=== PATIENT | male | born 1965 | race Two or more races ===

== ENCOUNTER 2020-03-26 06:11 | Outpatient (REF) | payer OTHER, SELFPAY ==
[2020-03-26 07:02] LABS: MANUAL DIFF FLAG NO
[2020-03-26 07:07] LABS: Basophils Absolute Auto 0.1 X10*3/uL (0.0-0.2); Basophils Percent Auto 0.8 % (0-2); Eosinophils Absolute Auto 0.3 X10*3/uL (0.0-0.4); Eosinophils Percent Auto 4.7 % (0-4); Hematocrit 45.9 % (42-52); Hemoglobin 15.9 g/dl (14.0-18.0); Imm Gran Abs Auto 0.02 X10*3/uL (0.00-0.03); Imm Gran Pct Auto 0.3 % (0.0-0.4); Lymphocytes Percent Auto 28.4 % (20-40); Mean Corpuscular HGB Conc 34.6 g/dl (31.0-36.0); Mean Corpuscular Hemoglobin 29.7 pg (27.0-33.0); Mean Corpuscular Volume 85.6 fL (80-98); Mean Platelet Volume 12.5 fL (9.4-12.4); Monocytes Absolute Auto 0.6 X10*3/uL (0.1-1.2); Monocytes Percent Auto 8.4 % (2-11); Neutrophils Absolute Auto 4.1 X10*3/uL (2.0-8.3); Neutrophils Percent Auto 57.4 % (45-73); Platelet Count 168 X10*3/uL (160-400); Red Blood Count 5.36 X10*6/uL (4.60-5.80); White Blood Count 7.2 X10*3/uL (4.8-10.8)
[2020-03-26 07:35] LABS: Creatinine Urine 57.12 mg/dL; Microalbumin Urine < 5.0 mg/L
[2020-03-26 07:51] LABS: Alanine Aminotransferase 51 U/L (0-40); Alkaline Phosphatase 115 U/L (39-117); Anion Gap 10 (12-20); Aspartate Amino Transferase 32 U/L (5-37); Bilirubin Total 0.5 mg/dL (0.0-1.0); Blood Urea Nitrogen 16 mg/dL (9-16); Calcium 9.2 mg/dL (8.4-10.2); Carbon Dioxide 31 mmol/L (22-29); Chloride 95 mmol/L (96-108); Estimated Glomerular Filt Rate 59; Potassium 4.4 mmol/l (3.3-5.1); Sodium 132 mmol/L (135-145); Total Protein 7.1 g/dL (6.5-8.0)
[2020-03-26 09:23] LABS: Glucose Fasting 466 mg/dL (60-99)
[2020-03-26 15:34] LABS: Cholesterol 181 mg/dL; HDL Cholesterol 39 mg/dL; LDL Cholesterol Calculated 77 mg/dl; Triglycerides 329 mg/dL
== END 2020-03-26 06:12 | disposition home or self-care (01) ==
LOC: HO.LAB 06:11
PROVIDERS: PCP Physician Assistant; Visit Provider Physician Assistant
DX: E11.65 Type 2 diabetes mellitus with hyperglycemia (principal); Z79.4 Long term (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
CPT/HCPCS: 36415; 80053; 80061; 82043; 85025

== ENCOUNTER 2021-09-08 08:53 | Outpatient (REF) | payer OTHER, SELFPAY ==
[2021-09-08 10:10] LABS: Estimated Average Glucose 315 mg/dL; Hemoglobin A1c % 12.6 %
[2021-09-08 10:40] LABS: Alanine Aminotransferase 28 U/L (0-40); Albumin Level 3.6 g/dL (3.5-5.0); Alkaline Phosphatase 89 U/L (39-117); Anion Gap 10 (12-20); Aspartate Amino Transferase 26 U/L (5-37); Bilirubin Total 0.6 mg/dL (0.0-1.0); Blood Urea Nitrogen 9 mg/dL (9-16); Calcium 9.4 mg/dL (8.4-10.2); Carbon Dioxide 31 mmol/L (22-29); Chloride 98 mmol/L (96-108); Cholesterol 168 mg/dL; Estimated Glomerular Filt Rate > 60; Glucose Fasting 234 mg/dL (60-99); HDL Cholesterol 54 mg/dL; LDL Cholesterol Calculated 90 mg/dl; Potassium 4.7 mmol/L (3.3-5.1); Rheumatoid Factor < 15.0 IU/mL (<15.0); Sodium 134 mmol/L (135-145); Total Protein 6.7 g/dL (6.5-8.0); Triglycerides 120 mg/dL
[2021-09-08 10:42] LABS: HBsAGNum1 0.18 S/CO (0.00-0.99); HIV AB/AG Nonreactive (Nonreactive); HIV Num 1 0.06 S/CO (0.00-0.99); Hepatitis B Surface Antigen Negative (Negative)
[2021-09-08 10:47] LABS: Syphilis Screen Nonreactive (Nonreactive)
[2021-09-08 11:02] LABS: HBS Num1 290.61 mIU/mL (0-7.99); HBc Num1 0.06 S/CO (0.00-0.79); Hepatitis B Core Antibody Nonreactive (Nonreactive); ~HepC Num1 0.06 S/CO (0.00-0.79); ~Hepatitis B Surface Antibody REACTIVE (Nonreactive); ~Hepatitis C Antibody Nonreactive (Nonreactive)
[2021-09-08 11:14] LABS: Prostate Specific Antigen Scr 1.37 ng/mL (<0.05-4.0)
[2021-09-08 11:32] LABS: Creatinine Urine 159.03 mg/dL; Microalbum/Creatinine Ratio Ur 26.4 ug/mg cr
[2021-09-10 15:06] LABS: Anti Nuclear Antibody Screen NEGATIVE (NEGATIVE)
[2021-09-10 23:22] LABS: TS Negative Control Passed; TS Panel A 2; TS Panel B 0; TS Positive Control Passed; TSpotTB Negative (Negative)
[2021-09-11 14:07] LABS: PTT (LAC) Screen 28 sec (< OR = 40)
== END 2021-09-08 08:54 | disposition home or self-care (01) ==
LOC: HO.LAB 08:53
PROVIDERS: PCP Physician Assistant; Visit Provider Physician Assistant
DX: L95.9 Vasculitis limited to the skin, unspecified (principal); E11.65 Type 2 diabetes mellitus with hyperglycemia; I10 Essential (primary) hypertension; Z79.4 Long term (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; Z11.3 Encounter for screening for infections with a predominantly sexual mode of transmission; Z12.5 Encounter for screening for malignant neoplasm of prostate
CPT/HCPCS: 36415; 80053; 80061; 82043; 83036; 84153; 84443; 85597; 85613; 85730; 86038; 86039; 86431; 86481; 86704; 86706; 86780; 86803; 87340; 87389

== ENCOUNTER 2022-11-10 06:33 | Outpatient (REF) | payer OTHER, SELFPAY ==
[2022-11-10 07:33] LABS: Hematocrit 46.1 % (42.0-52.0); Hemoglobin 15.8 g/dl (14.0-18.0); Mean Corpuscular HGB Conc 34.3 g/dl (31.0-36.0); Mean Corpuscular Hemoglobin 29.3 pg (27.0-33.0); Mean Corpuscular Volume 85.5 fL (80.0-98.0); Mean Platelet Volume 11.7 fL (9.4-12.4); Platelet Count 180 X10*3/uL (160-400); Red Blood Count 5.39 X10*6/uL (4.60-5.80); White Blood Count 7.4 X10*3/uL (4.8-10.8)
[2022-11-10 07:40] LABS: Estimated Average Glucose 292 mg/dL; Hemoglobin A1c % 11.8 %
[2022-11-10 08:10] LABS: Alanine Aminotransferase 36 U/L (0-40); Albumin Level 3.7 g/dL (3.5-5.0); Alkaline Phosphatase 80 U/L (39-117); Anion Gap 12 (12-20); Aspartate Amino Transferase 24 U/L (5-37); Bilirubin Total 0.7 mg/dL (0.0-1.0); Blood Urea Nitrogen 17 mg/dL (9-16); Calcium 9.9 mg/dL (8.4-10.2); Carbon Dioxide 28 mmol/L (22-29); Chloride 97 mmol/L (96-108); Cholesterol 184 mg/dL; Estimated Glomerular Filt Rate 59; HDL Cholesterol 50 mg/dL; LDL Cholesterol Calculated 86 mg/dl; Potassium 4.2 mmol/L (3.3-5.1); Sodium 133 mmol/L (135-145); Total Protein 6.8 g/dL (6.5-8.0); Triglycerides 244 mg/dL
[2022-11-10 08:19] LABS: Glucose Fasting 391 mg/dL (60-99)
[2022-11-10 08:26] LABS: TSH reflex Free T4 2.09 uIU/mL (0.32-4.0)
[2022-11-10 10:05] LABS: Creatinine Urine 91.83 mg/dL; Microalbum/Creatinine Ratio Ur 21.7 ug/mg cr
== END 2022-11-10 06:34 | disposition home or self-care (01) ==
LOC: HO.LAB 06:33
PROVIDERS: Nurse Practitioner Family; PCP Physician Assistant; Visit Provider Physician Assistant
DX: E11.65 Type 2 diabetes mellitus with hyperglycemia (principal); I10 Essential (primary) hypertension; Z79.4 Long term (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
CPT/HCPCS: 36415; 80053; 80061; 82043; 83036; 84443; 85027

== ENCOUNTER 2023-12-20 06:10 | Outpatient (REF) | payer BC, SELFPAY ==
[2023-12-20 08:26] LABS: Hematocrit 44.9 % (42.0-52.0); Hemoglobin 15.6 g/dl (14.0-18.0); Mean Corpuscular HGB Conc 34.7 g/dl (31.0-36.0); Mean Corpuscular Hemoglobin 30.4 pg (27.0-33.0); Mean Corpuscular Volume 87.5 fL (80.0-98.0); Mean Platelet Volume 12.3 fL (9.4-12.4); Platelet Count 181 X10*3/uL (160-400); Red Blood Count 5.13 X10*6/uL (4.60-5.80); Red Cell Distribution Width 12.5 % (11.0-16.0); White Blood Count 6.9 X10*3/uL (4.8-10.8)
[2023-12-20 08:35] LABS: Estimated Average Glucose 171 mg/dL; Hemoglobin A1c % 7.6 % (<6.0)
[2023-12-20 08:59] LABS: Alanine Aminotransferase 18 U/L (0-40); Albumin Level 3.7 g/dL (3.5-5.0); Alkaline Phosphatase 62 U/L (39-117); Anion Gap 10 (12-20); Aspartate Amino Transferase 18 U/L (5-37); Bilirubin Total 0.3 mg/dL (0.0-1.0); Blood Urea Nitrogen 14 mg/dL (9-16); Calcium 9.7 mg/dL (8.4-10.2); Carbon Dioxide 30 mmol/L (22-29); Chloride 101 mmol/L (96-108); Estimated Glomerular Filt Rate > 60; Glucose Fasting 173 mg/dL (60-99); Potassium 3.9 mmol/L (3.3-5.1); Sodium 137 mmol/L (135-145)
[2023-12-20 11:26] LABS: Prostate Specific Antigen Scr 1.96 ng/mL (<0.05-4.0)
== END 2023-12-20 06:11 | disposition home or self-care (01) ==
LOC: HO.LAB 06:10
PROVIDERS: PCP Physician Assistant; Visit Provider Physician Assistant
DX: E11.65 Type 2 diabetes mellitus with hyperglycemia (principal); Z79.4 Long term (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; Z12.5 Encounter for screening for malignant neoplasm of prostate
CPT/HCPCS: 36415; 80053; 83036; 84153; 85027

== ENCOUNTER 2023-12-20 15:14 | Outpatient (AMB) | payer BC, SELFPAY ==
[2023-12-20 15:51] VITALS: BP 140/90; PULSE 75; O2SAT 98; BMI 39.7
--- NOTE | 2023-12-20 15:51 | MHC.PC.OV ---
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 Sterile Processing Required: No Accompanied by: Self / Same As Patient Allergies metformin Adverse Reaction (Intermediate, Verified 12/20/23 16:12) Chills Medication List - Last Reconciled 12/20/23 by Saad Jimenez PA-C albuterol sulfate 2.5 mg (3 mL) inhalation .QH8 PRN albuterol sulfate 90 mcg/actuation 2 puffs inhalation Q6H 30 days amlodipine 5 mg PO DAILY blood sugar diagnostic (FreeStyle Lite Strips) As directed blood-glucose meter (FreeStyle [place] kit) As directed fluticasone propionate 110 mcg/actuation (Flovent HFA) 1 puff PO BID 30 days furosemide 40 mg PO DAILY insulin glargine (Lantus Solostar U-100 Insulin) 30 units (0.3 mL) subcut QAM 30 days lancets (FreeStyle Lancets) As directed lisinopril 30 mg PO DAILY pen needle, diabetic (BD Ultra-Fine [place] Pen Needle) As directed triamcinolone acetonide 0.1% 1 appl topical DAILY 30 days Tobacco use date assessed: 12/20/23 Dental Screening Dental Screen Date: 12/20/23 Did you have a dental visit in the last 12 months?: Yes Did you have a dental problem in the last 6 months where you did not have access to dental care?: No Was dental information given to patient?: Patient has dentist HPI Overdue Annual PE HPI Details Patient is a 58 year male here today for an annual physical. . Patient has a past medical history significant for hypertension, type 2 diabetes, obesity, mild? intermittent asthma. .. ?hypertension;? blood pressure today in office slightly elevated. Has not been particularly monitoring his blood pressure home.. He continues on amlodipine, furosemide and lisinopril 30 mg Has been able to lose weight since last office visit. he denies any chest pain, shortness of breath, headaches or vision issues.? He reports taking? lisinopril daily. ? .. Obesity:? Has lost some weight since last office visit likely due to uncontrolled diabetes..? He does report having a family history of obesity.? He does report having a fairly decent diet. .. Type? 2 diabetes :? Diabetes has been better controlled as of late. Today's A1c is 7.6 from 11. He continues on insulin therapy and has been compliant with daily use. He reports he has been more compliant with diabetic diet and has been more physically active.. He reports blood sugars have been much better 130s to 180s. .. Asthma: Has been fairly well controlled with p.r.n. use of his albuterol inhaler. Does not regularly uses Flovent. Does report his asthma exacerbates with colder [place] Colon cancer screening: Needs up-to-date Cologuard .. Vaccines : up-to-date with tetanus vaccine, up-to-date with COVID vaccine( john lopez), needs pneumonia vaccine though is considering, has not had chicken pox [facility] Medical History Morbid obesity with BMI of 40.0-44.9, adult Colon cancer screening Mild intermittent asthma in adult without complication Surgical History History of knee surgery Family History (Updated 12/20/23 @ 16:16 by Saad Jimenez PA-C) Brother Myocardial infarction, Onset Age: 40 Father Social History (Updated 12/20/23 @ 16:17 by Saad Jimenez PA-C) Housing: Apartment Alcohol intake: current Alcohol intake frequency: holidays/special occasions only Alcohol type: beer Patient Tobacco Use Status: Never used Tobacco e-Cigarette/Vaping Use: Never Used Second Hand Smoke Exposure: Yes service: No Current occupational 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 1. Little interest or pleasure in doing things: not at all 2. Feeling down, depressed, or hopeless: not at all 3. Trouble falling or staying asleep, or sleeping too much: not at all 4. Feeling tired or having little energy: not at all 5. Poor appetite or overeating: not at all 6. Feeling bad about yourself - or that you are a failure or have let yourself or your family down: not at all 7. Trouble concentrating on things, such as reading the newspaper or watching television: not at all 8. Moving or speaking so slowly that other people could have noticed. Or the opposite - being so fidgety or restless that you have been moving around a lot more than usual: not at all 9. Thoughts that you would be better off or of hurting yourself in some way: not at all Total score: 0 Depression Screening Interpretation: Negative Depression Screening Done: Yes 65166 - PHQ-9 Billing: Yes Source: Developed by Drs. Silvano Smith, Mallory Miramontes, Robert Walker and colleagues, with an educational evelyn from [employer]. Thrive Questionnaire Date Thrive assessed: 12/20/23 I am a: Patient What is your living situation today?: I have a steady place to live Within the past 12 months, did the food you bought not last and you didn't have the money to get more?: Never true Within the past 12 months, did you worry whether your food would run out before you got money to buy more?: Never true Do you have trouble paying for medicines?: No Do you have trouble getting transportation to medical appointments?: No Do you have trouble paying your heating and electricity bill?: No Do you have trouble taking care of your child, family member or friend?: No Do you have trouble with day-to-day activities such as bathing, preparing meals, shopping, managing finances, etc.?: No Are you currently unemployed and looking for a job?: No Are you interested in more education?: No Please select the resources that you would like help with: None Currently or been in a relationship where the following occur: No concerns reported THRIVE Score: 0 AUDIT C Alcohol Use Questionnaire (AUDIT-C) 1. How often do you have a drink containing alcohol?: 2-3 times a week 2. How many drinks containing alcohol do you have on a typical day when you are drinking?: 3 or 4 3. How often do you have six or more drinks on one occasion?: Never Total Score: 4 Score Reviewed/Action Taken: Yes HARSHA-7 AMB Questionnaire HARSHA-7 Date HARSHA - 7 assessed: 12/20/23 Feeling nervous, anxious, or on edge: 0 = Not at all Not being able to stop or control worryin = Not at all Worrying too much about different things: 0 = Not at all Trouble relaxin = Not at all Being so restless that it is hard to sit still: 0 = Not at all Becoming easily annoyed or irritable: 0 = Not at all Feeling afraid as if something awful might happen: 0 = Not at all Total HARSHA-7 score (0-4 normal; 5-9 mild; 10-14 moderate; 15-21 severe): 0 Source: Developed by Drs. Silvano Smith, Mallory Miramontes, Robert Walker and colleagues, with an educational evelyn from [employer]. HRASHA-7 Assessment Billing HARSHA-7 Assessment Tool: HARSHA-7 Assessment 59126 Review of Systems Const Denies body aches, Denies chills, Denies excessive sweating, Denies fatigue, Denies fever(s) and Denies headache(s) Eyes Denies blurry vision ENT Denies dysphagia, Denies vertigo, Denies dizziness, Denies headache(s), Denies hearing loss and Denies tinnitus Card Denies chest pain, Denies chest pain with activity, Denies syncope, Denies irregular heart rhythm and Denies dyspnea Resp Denies chest congestion, Denies cough, Denies hemoptysis, Denies dyspnea and Denies wheezing GI Denies abdominal pain, Denies melena, Denies hematochezia, Denies coffee ground emesis, Denies dysphagia, Denies diarrhea, Denies nausea and Denies vomiting Denies difficulty urinating, Denies dysuria, Denies urinary frequency, Denies urinary hesitancy and Denies urinary urgency Musc Denies arthralgias, Denies limited range of motion, Denies muscle cramps and Denies muscle weakness Skin/Breast Denies rash and Denies skin ulcer Neuro Denies Abnormal speech present, Denies confusion, Denies vertigo, Denies dizziness, Denies syncope, Denies headache(s), Denies memory loss and Denies seizure-like activity Psych Denies anxiety, Denies confusion, Denies depression, Denies memory loss, Denies panic attacks and Denies paranoia Endo Denies excessive sweating, Denies fatigue, Denies flushing, Denies polydipsia and Denies polyuria Aller/Immun Denies wheezing Physical exam (Primary Care) Vital Signs: Last Vital Signs Pulse 75 12/20/23 15:51 BP 140/90 H 12/20/23 15:51 Pulse Ox 98 12/20/23 15:51 Oxygen Delivery Method Room Air 12/20/23 15:51 BMI result Body Mass Index 39.7 BMI Assessment/Plan discussion: High BMI High, discussed plan: lifestyle, weight reduction, dietary and physical activity Tobacco/Smoking Status: Tobacco use Status Tobacco use date assessed 12/20/23 12/20/23 16:01 Patient Tobacco Use Status Never used Tobacco 12/20/23 16:17 e-Cigarette/Vaping Use Never Used 12/20/23 16:17 PHQ-9: PHQ-9 Score PHQ-9: Total score 0 12/20/23 16:13 Depression Screening Interpretation: Negative Thrive Assessment: Date of Thrive Assessment Date Thrive assessed 12/20/23 12/20/23 16:01 Currently or been in a relationship where the following occur: No concerns reported Const General: cooperative, comfortable, no acute distress, alert and awake; No confusion Orientation/consciousness: oriented to person, oriented to place, patient oriented x3 and No confusion HENMT Head: Yes normocephalic Ears: external ears normal and TM's normal bilaterally Face and sinus: No sinus tenderness Mouth: Normal oral and palatal mucosa present and tongue normal Teeth and gingiva: dentition normal and gingiva normal Throat: Yes posterior oropharynx normal, Yes tonsils normal and Yes uvula midline Eyes Conjunctivae: conjunctivae normal Sclerae: sclerae normal Pupils: Equal, round and reactive pupils present EOM: EOMs intact bilaterally Direct Ophthalmoscopy: No no photophobia Neck Neck: Yes no lymphadenopathy, No tender and Yes no JVD Thyroid: Thyroid normal Carotids: no bruits Chest Chest palpation & inspection: no tenderness Resp Effort & Inspection: normal respiratory effort, no audible wheezes, not labored and no stridor Auscultation: no crackles, no rales, no rhonchi and no wheezes Cardio Jugular venous distension: no JVD Rate: regular rate, not bradycardic and not tachycardic Rhythm: regular rhythm Bruits: no carotid bruits Peripheral pulses: Peripheral pulses 2+ throughout GI Inspection: Yes normal to inspection, No abdominal wall ecchymosis and No visible herniation Palpation (GI): Soft to palpation, nontender, no guarding, not rigid and No hepatosplenomegaly present Auscultation: normoactive bowel sounds General: Yes no CVA tenderness Back/Spine/Pelvis Back: no CVA tenderness and No back tenderness Cervical Spine: cervical ROM normal Thoracic/Lumbar Spine: thoracic and lumbar spine normal to inspection, straight leg raise negative bilaterally, No thoraco-lumbar ROM limited and No lumbar spinal tenderness Skin Lesions: no lesions Rashes: no rashes Wounds: no wounds Neuro General: oriented to person, oriented to place, patient oriented x3, CN's II-XI intact bilaterally and No confusion Cranial nerves: Yes Equal, round and reactive pupils present and Yes Normal accommodation reflex present Cognition (Neuro): normal cognition Speech: No Abnormal speech present Gait exam (Neuro): Normal gait present Motor exam (neuro): 5/5 motor strength present throughout Extrem Right upper extremity: full ROM; no cyanosis Left upper extremity: full ROM; no cyanosis Right lower extremity: no edema Left lower extremity: no edema Psych Appearance: grossly normal Mental Status: mental status grossly normal Affect: normal affect Attitude: cooperative Thought process: Normal thought process present Assessment and Plan Assessment & Plan (1) Annual physical exam: Code(s): Z00.00 - Encounter for general adult medical examination without abnormal findings Plan: Willing to do Cologuard (2) Type 2 diabetes mellitus with hyperglycemia: Code(s): E11.65 - Type 2 diabetes mellitus with hyperglycemia Qualifiers: Diabetes mellitus residential insulin use: with residential use Qualified Code(s): E11.65 - Type 2 diabetes mellitus with hyperglycemia; Z79.4 - snf (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 Plan: Patient's type 2 diabetes has been better controlled, most recent A1c is 7.6 from 11. Has been able to lose 10 lb since last office visit. He reports he has been more adherent to his diabetic medication/diet and has been more physically active. Goal A1c to be below 7.0 (3) HTN (hypertension): Code(s): I10 - Essential (primary) hypertension Qualifiers: Hypertension type: essential hypertension Qualified Code(s): I10 - Essential (primary) hypertension Plan: Patient's blood pressure slightly elevated today in office. Has not been monitoring his blood pressure at home. He continues on lisinopril 30, furosemide and amlodipine 5 mg. Will consider increasing amlodipine to maximal dose of 10 mg if blood pressures remain above 140/90 consistently at home. (4) Mild intermittent asthma in adult without complication: Code(s): J45.20 - Mild intermittent asthma, uncomplicated Plan: He reports his asthma has been fairly well stable with only p.r.n. use of his albuterol inhaler. Will give refills rescue inhaler and maintenance inhaler. Denies any recent asthma exacerbations or nighttime awakenings with asthma symptoms. Orders: Orders Comprehensive [place]. Panel Fast 12/20/23 E11.65 - Type 2 diabetes mellitus with hyperglycemia, Z79.4 - snf (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 Complete Blood Count no Diff 12/20/23 E11.65 - Type 2 diabetes mellitus with hyperglycemia, Z79.4 - snf (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 Hemoglobin A1c 12/20/23 E11.65 - Type 2 diabetes mellitus with hyperglycemia, Z79.4 - snf (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 Prostate Specific Antigen Scr 12/20/23 I10 - Essential (primary) hypertension, Z12.5 - Encounter for screening for malignant neoplasm of prostate Lipid Panel 12/20/23 E78.1 - Pure hyperglyceridemia Microalbumin, Random (w Creat) 12/20/23 I10 - Essential (primary) hypertension Referrals Cologuard Test Z12.11 - Encounter for screening for malignant neoplasm of colon Patient Instructions: Goal: A1c to be below 7.0, blood pressure to be below 140/90 Barriers: Adherence to physical activity and healthy eating habits Coding Level of Care Code Est Pt Prev Care 40-64y(38072) Diagnoses Annual physical exam Z00.00 Type 2 diabetes mellitus with hyperglycemia, with long-term current use of insulin E11.65; Z79.4 Diabetes mellitus terminal supervisor insulin use: with terminal supervisor use Essential hypertension I10 Hypertension type: essential hypertension Mild intermittent asthma in adult without complication J45.20 Additional Codes HARSHA-7 Assessment Billing - HARSHA-7 Assessment Tool: HARSHA-7 Assessment [id number] ([id number])
== END 2023-12-20 16:29 | disposition home or self-care (01) ==
PROVIDERS: PCP Physician Assistant; Visit Provider Physician Assistant
DX: Z00.00 Encounter for general adult medical examination without abnormal findings (principal); E11.65 Type 2 diabetes mellitus with hyperglycemia; Z79.4 Long term (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; I10 Essential (primary) hypertension; J45.20 Mild intermittent asthma, uncomplicated
CPT/HCPCS: 99396

== ENCOUNTER 2024-06-26 06:03 | Outpatient (REF) | payer BC, SELFPAY ==
[2024-06-26 08:16] LABS: Hematocrit 46.2 % (42.0-52.0); Hemoglobin 15.8 g/dl (14.0-18.0); Mean Corpuscular HGB Conc 34.2 g/dl (31.0-36.0); Mean Corpuscular Hemoglobin 29.9 pg (27.0-33.0); Mean Corpuscular Volume 87.5 fL (80.0-98.0); Mean Platelet Volume 12.3 fL (9.4-12.4); Platelet Count 194 X10*3/uL (160-400); Red Blood Count 5.28 X10*6/uL (4.60-5.80); Red Cell Distribution Width 11.9 % (11.0-16.0); White Blood Count 7.3 X10*3/uL (4.8-10.8)
[2024-06-26 09:01] LABS: Estimated Average Glucose 249 mg/dL; Hemoglobin A1C 391.1402 umol/L; Hemoglobin A1c % 10.3 % (<6.0); Total Hemoglobin (HGBA1C) 4372.8346 umol/L
[2024-06-26 09:10] LABS: Alanine Aminotransferase 32 U/L (0-40); Albumin Level 3.8 g/dL (3.5-5.0); Alkaline Phosphatase 78 U/L (39-117); Anion Gap 12 (12-20); Aspartate Amino Transferase 24 U/L (5-37); Bilirubin Total 0.6 mg/dL (0.0-1.0); Blood Urea Nitrogen 11 mg/dL (9-16); Calcium 9.3 mg/dL (8.4-10.2); Carbon Dioxide 27 mmol/L (22-29); Chloride 101 mmol/L (96-108); Cholesterol 145 mg/dL (<200); Estimated Glomerular Filt Rate 55; Glucose Fasting 315 mg/dL (60-99); HDL Cholesterol 49 mg/dL (>40); LDL Cholesterol Calculated 71 mg/dL (<100); Potassium 4.5 mmol/L (3.3-5.1); Sodium 135 mmol/L (135-145); Total Protein 7.4 g/dL (6.5-8.0); Triglycerides 126 mg/dL (<150)
[2024-06-26 09:24] LABS: Creatinine Urine 141.67 mg/dL; Microalbum/Creatinine Ratio Ur 35.2 ug/mg cr (<30)
[2024-06-26 09:34] LABS: Prostate Specific Antigen Scr 2.07 ng/mL (<0.05-4.0)
== END 2024-06-26 06:04 | disposition home or self-care (01) ==
LOC: HO.LAB 06:03
PROVIDERS: PCP Physician Assistant; Visit Provider Physician Assistant
DX: Z12.5 Encounter for screening for malignant neoplasm of prostate (principal); E11.65 Type 2 diabetes mellitus with hyperglycemia; I10 Essential (primary) hypertension; E78.1 Pure hyperglyceridemia; E66.813 Obesity, class 3; Z79.4 Long term (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
CPT/HCPCS: 36415; 80053; 80061; 82043; 82570; 83036; 84153; 85027; 96127

== ENCOUNTER 2024-06-26 13:59 | Outpatient (AMB) | payer BC, SELFPAY ==
--- NOTE | 2024-06-26 14:00 | A.OFFPC_ITS ---
Vital Signs 06/26/24 14:01 Height 5 ft 8 in Weight 266 lb 8 oz BMI 40.5 BP 140/90 H Blood Pressure Location Lt brachial Position Sitting Pulse 82 Pulse Source Pulse Oximeter Pulse Oximetry (%) 97 Oxygen Delivery Method Room Air Intake Visit Reasons: f/u DMII Target Network Analyst Required: No Accompanied by: Self / Same As Patient Allergies metformin Adverse Reaction (Intermediate, Verified 06/26/24 14:06) Chills Medication List - Last Reconciled 06/26/24 by Saad Jimenez PA-C albuterol sulfate 2.5 mg (3 mL) inhalation .QH8 PRN albuterol sulfate 90 mcg/actuation 2 puffs inhalation Q6H 30 days amlodipine 5 mg PO DAILY blood sugar diagnostic (FreeStyle Lite Strips) As directed blood-glucose meter (FreeStyle [place] kit) As directed blood-glucose meter,continuous (FreeStyle Froylan 3 [place]) As directed blood-glucose sensor (FreeStyle Froylan 3 Sensor device) As directed fluticasone propionate 110 mcg/actuation (Flovent HFA) 1 puff PO BID 30 days furosemide 40 mg PO DAILY insulin glargine (Lantus Solostar U-100 Insulin) 30 units (0.3 mL) subcut QAM 30 days lancets (FreeStyle Lancets) As directed lisinopril 30 mg PO DAILY pen needle, diabetic (BD Ultra-Fine Yina Pen Needle) As directed triamcinolone acetonide 0.1% 1 appl topical DAILY 30 days Tobacco use date assessed: 06/26/24 Dental Screening Dental Screen Date: 06/26/24 Did you have a dental visit in the last 12 months?: Yes Did you have a dental problem in the last 6 months where you did not have access to dental care?: No Was dental information given to patient?: Patient has dentist HPI f/u DMII HPI Details Patient is a 59 year male here today for a follow-up visit . Patient has a past medical history si gnificant for hypertension, type 2 diabetes, obesity, mild? intermittent asthma. .. ?hypertension;? blood pressure today in office slightly elevated. Has not been particularly monitoring his blood pressure home.. Patient continues on lisinopril 30 mg , he has not been on amlodipine 5 mg as he reports he lost a script during his move. Unfortunately gained weight since last office visit. he denies any chest pain, shortness of breath, headaches or vision issues.? He reports taking? lisinopril daily. PLAN: Will restart amlodipine 5 mg to see if we can capture better control of his blood pressure. ? .. Obesity:? Has lost some weight since last office visit likely due to uncontrolled diabetes..? He does report having a family history of obesity.? He does report having a fairly decent diet. .. Type? 2 diabetes: Patient's type 2 diabetes suboptimally controlled, most recent fasting blood sugar above 300 and A1c now above 11. He reports he is only taking his Lantus on an as needed basis. He does report checking his blood sugar from time to time and reports 2 to 300s PLAN: Will start to take Lantus on a daily basis for better glycemic control. Will additional p.o. indication in over a GLP 1. .. Asthma: Has been fairly well controlled with p.r.n. use of his albuterol inhaler. Does not regularly uses Flovent. Does report his asthma exacerbates with colder [facility] Medical History (Updated 06/26/24 @ 14:26 by Saad Jimenez PA-C) Colon cancer screening Mild intermittent asthma in adult without complication Surgical History History of knee surgery Family History Brother Myocardial infarction, Onset Age: 40 Father Social History Housing: Apartment Alcohol intake: current Alcohol intake frequency: holidays/special occasions only Alcohol type: beer Patient Tobacco Use Status: Never used Tobacco e-Cigarette/Vaping Use: Never Used Second Hand Smoke Exposure: Yes service: No Current occupational 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 1. Little interest or pleasure in doing things: not at all 2. Feeling down, depressed, or hopeless: not at all 3. Trouble falling or staying asleep, or sleeping too much: not at all 4. Feeling tired or having little energy: not at all 5. Poor appetite or overeating: not at all 6. Feeling bad about yourself - or that you are a failure or have let yourself or your family down: not at all 7. Trouble concentrating on things, such as reading the newspaper or watching television: not at all 8. Moving or speaking so slowly that other people could have noticed. Or the opposite - being so fidgety or restless that you have been moving around a lot more than usual: not at all 9. Thoughts that you would be better off or of hurting yourself in some way: not at all Total score: 0 Depression Screening Interpretation: Negative Depression Screening Done: Yes 05133 - PHQ-9 Billing: Yes Source: Developed by Drs. Silvano Smith, Mallory Miramontes, Robert Walker and colleagues, with an educational evelyn from [facility]. Thrive Questionnaire Date Thrive assessed: 06/26/24 I am a: Patient What is your living situation today?: I have a steady place to live Within the past 12 months, did the food you bought not last and you didn't have the money to get more?: Never true Within the past 12 months, did you worry whether your food would run out before you got money to buy more?: Never true Do you have trouble paying for medicines?: No Do you have trouble getting transportation to medical appointments?: No Do you have trouble paying your heating and electricity bill?: No Do you have trouble taking care of your child, family member or friend?: No Do you have trouble with day-to-day activities such as bathing, preparing meals, shopping, managing finances, etc.?: No Are you currently unemployed and looking for a job?: No Are you interested in more education?: No Please select the resources that you would like help with: None Currently or been in a relationship where the following occur: No concerns reported THRIVE Score: 0 AUDIT C Alcohol Use Questionnaire (AUDIT-C) 1. How often do you have a drink containing alcohol?: 2-3 times a week 2. How many drinks containing alcohol do you have on a typical day when you are drinking?: 3 or 4 3. How often do you have six or more drinks on one occasion?: Never Total Score: 4 Score Reviewed/Action Taken: Yes HARSHA-7 AMB Questionnaire HARSHA-7 Date HARSHA - 7 assessed: 06/26/24 Feeling nervous, anxious, or on edge: 0 = Not at all Not being able to stop or control worryin = Not at all Worrying too much about different things: 0 = Not at all Trouble relaxin = Not at all Being so restless that it is hard to sit still: 0 = Not at all Becoming easily annoyed or irritable: 0 = Not at all Feeling afraid as if something awful might happen: 0 = Not at all Total HARSHA-7 score (0-4 normal; 5-9 mild; 10-14 moderate; 15-21 severe): 0 Source: Developed by Drs. Silvano Smith, Mallory Miramontes, Robert Walker and colleagues, with an educational evelyn from [facility]. HARSHA-7 Assessment Billing HARSHA-7 Assessment Tool: HARSHA-7 Assessment 91055 Review of Systems Const Denies headache(s) Eyes Denies loss of vision ENT Denies vertigo, Denies dizziness, Denies headache(s) and Denies sore throat Card Denies chest pain, Denies leg edema and Denies lightheadedness Resp Denies cough, Denies hemoptysis and Denies wheezing GI Denies abdominal pain, Denies melena, Denies constipation, Denies diarrhea and Denies vomiting Denies dysuria, Denies urinary frequency and Denies urinary urgency Musc Denies arthralgias, Denies joint swelling, Denies numbness and Denies tingling Neuro Denies Abnormal speech present, Denies behavioral changes, Denies vertigo, Denies dizziness, Denies headache(s), Denies loss of vision, Denies memory loss, Denies numbness and Denies tingling Psych Denies anxiety, Denies behavioral changes, Denies depression, Denies memory loss and Denies panic attacks Steven/Lymph Denies easy bleeding and Denies easy bruising Aller/Immun Denies wheezing Physical exam (Primary Care) Vital Signs: Last Vital Signs Pulse 82 06/26/24 14:01 BP 140/90 H 06/26/24 14:01 Pulse Ox 97 06/26/24 14:01 Oxygen Delivery Method Room Air 06/26/24 14:01 BMI result Body Mass Index 40.5 Tobacco/Smoking Status: Tobacco use Status Tobacco use date assessed 06/26/24 06/26/24 14:07 Patient Tobacco Use Status Never used Tobacco 06/26/24 14:03 e-Cigarette/Vaping Use Never Used 06/26/24 14:03 PHQ-9: PHQ-9 Score PHQ-9: Total score 0 06/26/24 14:09 Depression Screening Interpretation: Negative Thrive Assessment: Date of Thrive Assessment Date Thrive assessed 06/26/24 06/26/24 14:07 Currently or been in a relationship where the following occur: No concerns reported Const General: healthy appearing, no acute distress, alert and awake Nutritional Appearance: well nourished Orientation/consciousness: oriented to person, oriented to place and oriented to time HENMT Ears: TM's normal bilaterally General nose exam: Normal nasal mucous membranes and turbinates present Eyes Conjunctivae: conjunctivae normal Sclerae: sclerae normal Pupils: Equal, round and reactive pupils present Neck Neck: Yes no lymphadenopathy and Yes no JVD Thyroid: Thyroid normal Carotids: no bruits Resp Effort & Inspection: normal respiratory effort and not tachypneic Auscultation: no crackles, no rales, no rhonchi and no wheezes Cardio Rate: regular rate Rhythm: regular rhythm Heart sounds: no murmurs and normal S1 and S2 GI Palpation (GI): Soft to palpation, nontender, no hepatomegaly and no splenomegaly Auscultation: normal bowel sounds Skin General skin exam: no rashes or lesions noted and dry skin Neuro General: oriented to person, oriented to place and oriented to time Cranial nerves: Yes Equal, round and reactive pupils present Speech: No Abnormal speech present Gait exam (Neuro): Normal gait present Motor exam (neuro): no tremor noted Extrem Right upper extremity: full ROM Left upper extremity: full ROM Right lower extremity: full ROM; no edema Left lower extremity: full ROM; no edema Psych Mental Status: mental status grossly normal Speech and movement: Normal speech and movement present Affect: normal affect Attitude: cooperative Thought process: Normal thought process present Office Procedures Flu Questionnaire Does the patient have a severe egg allergy?: No Results AMB Hemoglobin A1c AMB Hemoglobin A1c 11.1 % Last Edit by CINDY Andrews on 06/26/24 14:09 Immunizations Fluarix Triv [id number] (PF) 45 mcg (15 mcg x 3)/0.5 mL IM syringe Performing Provider: Saad Jimenez PA-C Performing Location: [facility] [place] [facility] Documented (not given) by: CINDY Andrews on 06/26/24 14:05 Reason Not Given: Patient Refused Coding Level of Care Code Est Pt Level 4 (30647) Diagnoses Type 2 diabetes mellitus with hyperglycemia, with long-term current use of insulin E11.65; Z79.4 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 Essential hypertension I10 Hypertension type: essential hypertension Hypertriglyceridemia E78.1 Class 3 obesity E66.813 Additional Codes HARSHA-7 Assessment Billing - HARSHA-7 Assessment Tool: HARSHA-7 Assessment 03105 ([id number]) PHQ-9 - 49339 - PHQ-9 Billing: Yes ([id number]) Assessment & Plan Assessment & Plan (1) Type 2 diabetes mellitus with hyperglycemia: Code(s): E11.65 - Type 2 diabetes mellitus with hyperglycemia Category: Medical Qualifiers: 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 Today's A1c at 11. He has not been taking Lantus on a daily basis. Will restart Lantus on a daily basis to try to capture better glycemic control. Unfortunately has not been able to tolerate metformin. He will implement a diabetic diet Will consider GLP 1 and/or an additional p.o. medication. (2) HTN (hypertension): Code(s): I10 - Essential (primary) hypertension Category: Medical Qualifiers: Hypertension type: essential hypertension Qualified Code(s): I10 - Essential (primary) hypertension Plan: Patient's blood pressure slightly elevated today in office. Has not been taking amlodipine 5 mg. Will restart amlodipine 5 mg for better blood pressure control. Advised to monitor blood pressure at home with blood pressure to be below 140/90 (3) Hypertriglyceridemia: Code(s): E78.1 - Pure hyperglyceridemia Category: Medical Plan: Most recent lipid panel showing good control of his total cholesterol and LDL. 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 Influenza [id number] Immunization Today Z23 - Encounter for immunization Medications: New blood-glucose sensor (FreeStyle Froylan 3 Sensor device) As directed 1 ea 6RF E11.65 - Type 2 diabetes mellitus with hyperglycemia, Z79.4 - termite control 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 (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 blood-glucose meter,continuous (FreeStyle Froylan 3 [place]) As directed 1 ea 1RF E11.65 - Type 2 diabetes mellitus with hyperglycemia, Z79.4 - prison (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 Refilled furosemide 40 mg PO DAILY 40 tabs 3RF 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, unspecified insulin glargine (Lantus Solostar U-100 Insulin) Increased dose to 30 units 30 units (0.3 mL) subcut QAM 30 days 9 mL 2RF E11.65 - Type 2 diabetes mellitus with hyperglycemia, Z79.4 - termite control servicer (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 amlodipine 5 mg PO DAILY 90 tabs 1RF I10 - Essential (primary) hypertension albuterol sulfate 2.5 mg (3 mL) inhalation .QH8 PRN 270 mL 0RF shortness of breath or wheezing J45.20 - Mild intermittent asthma, uncomplicated lisinopril 30 mg PO DAILY 90 tabs 1RF I10 - Essential (primary) hypertension pen needle, diabetic (BD Ultra-Fine Yina Pen Needle) As directed 50 ea 4RF E11.65 - Type 2 diabetes mellitus with hyperglycemia, Z79.4 - termite control servicer (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
[2024-06-26 14:01] VITALS: BP 140/90; PULSE 82; O2SAT 97; BMI 40.5
== END 2024-06-26 14:23 | disposition home or self-care (01) ==
PROVIDERS: PCP Physician Assistant; Visit Provider Physician Assistant
DX: E11.65 Type 2 diabetes mellitus with hyperglycemia (principal); Z79.4 Long term (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; Z68.41 Body mass index [BMI] 40.0-44.9, adult; E66.813 Obesity, class 3; I10 Essential (primary) hypertension; E78.1 Pure hyperglyceridemia; Z23 Encounter for immunization

== ENCOUNTER 2024-07-10 09:41 | Outpatient (AMB) | payer BC, SELFPAY ==
--- NOTE | 2024-07-10 09:46 | MHC.PC.OV ---
Vital Signs 07/10/24 09:48 Height 5 ft 8 in Weight 265 lb 2 oz BMI 40.3 BP 110/70 Blood Pressure Location Lt brachial Position Sitting Pulse 67 Pulse Source Pulse Oximeter Temp 96.6 F L Temp Source Skin Pulse Oximetry (%) 97 Oxygen Delivery Method Room Air Intake Visit Reasons: [facility] 07/05 fell 4 broken ribs Intake Note: Patient is here to follow-up after a visit the emergency department at [facility] on 07/05/24. Timber Poisoner Required: No Varnish Dipper: Not Required per policy Accompanied by: Self / Same As Patient Allergies oxycodone Allergy (Intermediate, Verified 07/10/24 10:21) Palpitations metformin Adverse Reaction (Intermediate, Verified 07/10/24 10:21) Chills Medication List - Last Reconciled 07/10/24 by Lori Hurst PA-C acetaminophen ER (Pain Relief (acetaminophen)) 975mg orally every 8 hours; albuterol sulfate 90 mcg/actuation 2 puffs inhalation Q6H 30 days albuterol sulfate 2.5 mg (3 mL) inhalation .QH8 PRN albuterol sulfate 90 mcg/actuation 1 inh inhalation QID PRN amlodipine 5 mg PO DAILY amoxicillin-pot clavulanate 875-125 mg 1 tab PO BID blood sugar diagnostic (FreeStyle Lite Strips) As directed blood-glucose meter (FreeStyle [place] kit) As directed blood-glucose meter,continuous (FreeStyle Froylan 3 [place]) As directed blood-glucose sensor (FreeStyle Froylan 3 Sensor device) As directed cyclobenzaprine 10 mg PO Q8H fluticasone propionate 110 mcg/actuation (Flovent HFA) 1 puff PO BID 30 days furosemide 40 mg PO DAILY ibuprofen 800 mg PO Q8H PRN insulin glargine (Lantus Solostar U-100 Insulin) 30 units (0.3 mL) subcut QAM 30 days lancets (FreeStyle Lancets) As directed lisinopril 30 mg PO DAILY pen needle, diabetic (BD Ultra-Fine Yina Pen Needle) As directed prednisone 20 mg PO DAILY triamcinolone acetonide 0.1% 1 appl topical DAILY 30 days Tobacco use date assessed: 07/10/24 Dental Screening Dental Screen Date: 06/26/24 [facility] Medical History Colon cancer screening Mild intermittent asthma in adult without complication Surgical History History of knee surgery Family History Brother Myocardial infarction, Onset Age: 40 Father Social History Housing: Apartment Alcohol intake: current Alcohol intake frequency: holidays/special occasions only Alcohol type: beer Patient Tobacco Use Status: Never used Tobacco e-Cigarette/Vaping Use: Never Used Second Hand Smoke Exposure: Yes service: No Current occupational 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 Silvano Smith, Mallory Miramontes, Robert Walker and colleagues, with an educational evelyn from [employer]. Physical exam (Primary Care) Vital Signs: Last Vital Signs Temp 96.6 F L 07/10/24 09:48 Pulse 67 07/10/24 09:48 BP 110/70 07/10/24 09:48 Pulse Ox 97 07/10/24 09:48 Oxygen Delivery Method Room Air 07/10/24 09:48 BMI result Body Mass Index 40.3 Tobacco/Smoking Status: Tobacco use Status Tobacco use date assessed 07/10/24 07/10/24 09:56 Patient Tobacco Use Status Never used Tobacco 07/10/24 09:56 e-Cigarette/Vaping Use Never Used 07/10/24 09:56 Thrive Assessment: Date of Thrive Assessment Date Thrive assessed 06/26/24 07/10/24 09:56 Coding Level of Care Code Est Pt Level 4 (28650) Complex EM visit Add On G2211 Diagnoses Ribs, multiple fractures S22.49XA Pulmonary nodule less than 6 mm determined by computed tomography of lung R91.1 Assessment & Plan Assessment & Plan (1) Ribs, multiple fractures: Code(s): S22.49XA - Multiple fractures of ribs, unspecified side, initial encounter for closed fracture Category: Medical Plan: Patient diagnosed with multiple rib fractures to the right side of the ribcage seen at [facility] on 07/05/2024. Condition is stable. Will continue to monitor. (2) Pulmonary nodule less than 6 mm determined by computed tomography of lung: Code(s): R91.1 - Solitary pulmonary nodule Category: Medical Plan: Patient found to have incidental 5 mm pulmonary nodule when he had a fall. Recommend repeat imaging in 6 months. Will continue to monitor. Plan Plan - Prescribe Augmentin to prevent respiratory infection. - Prescribe Albuterol inhaler for wheezing to facilitate breathing. - Flexeril prescribed for muscle relaxation to minimize rib area muscle tension. - Motrin recommended at 800 mg every six hours. - Monitor blood glucose levels closely due to diabetes and potential effects of prednisone. - Scheduled repeat CT scan in six months for pulmonary nodule follow-up. - Provide a work note for continued absence to allow sufficient recovery time. Medications: New cyclobenzaprine 10 mg PO Q8H 30 tabs 1RF albuterol sulfate 90 mcg/actuation 1 inh inhalation QID PRN 6.7 grams 0RF shortness of breath or wheezing ibuprofen 800 mg PO Q8H PRN 30 tabs 1RF pain amoxicillin-pot clavulanate 875-125 mg 1 tab PO BID 20 tabs 0RF prednisone 20 mg PO DAILY 5 tabs 0RF Patient Instructions: Patient Instructions - Continue with Augmentin, Albuterol, Motrin, and Flexeril as prescribed. - Monitor blood sugar levels and watch for any unusual changes. - Use the inhaler as directed to alleviate wheezing. - Report any worsening symptoms, such as fever or bloody sputum, to the office immediately. - Avoid physical activities that could aggravate rib pain and follow prescribed rest periods. - Return for a follow-up appointment in one to two weeks for further evaluation. Scribe Plan - Not visible on output: History of Present Illness The patient is a 59-year-old male presenting with right rib pain and back pain following a traumatic fall from a stool in his home. The incident occurred on the Wednesday07/05/2024, causing him to fall against an iron counter and result in significant impact to his right side. He reports persistent pain from the front of his chest to the back, aligning with his spine. Upon initial evaluation at the emergency room, imaging via a CT scan revealed four fractured ribs. The patient was discharged with pain management prescriptions and advised to take a week off work. He experiences aggravated pain when lying on his right side or attempting to reach overhead. The pain also affects his ability to breathe comfortably, leading him to sleep in a sitting position. He initially attempted taking prescribed oxycodone for pain, but discontinued due to adverse effects including rapid heart rate. Instead, he has been using Motrin and Tylenol, which provide some relief. Notably, he denies any history of blood thinner usage. He reports increased mucus production and difficulty breathing, exacerbated by rib movement during respiration. No instances of head trauma or loss of consciousness occurred with the initial fall. CT scan also incidentally revealed a 5 mm pulmonary nodule and recommend repeat imaging in 6 months. The patient denies smoking and any immediate family history of respiratory or notable chronic conditions. The patient denies any fevers, chills, nasal congestion/rhinorrhea or any other symptoms complaints or concerns at this time Social History - has been out of work since his injury due to pain.. - Engages in home activities such as reaching overhead, which are currently painful. - Denies smoking history. Review of Systems - Respiratory: Reports wheezing, frequent coughing, and production of sputum. Physical Exam Appearance: Alert. Oriented X3. No acute distress. Head: Normal external exam. Normocephalic. Atraumatic. Eyes: Pupils are equal, round, and reactive to light. Extraocular movements intact. Conjunctiva and sclera normal. Eyelids normal. Ears: External auditory canal normal. Throat: Pharynx normal. Uvula midline. Moist mucous membranes. Neck: Normal inspection. Neck supple. Full range of motion. No adenopathy. Thyroid Normal. No meningeal signs. No neck mass noted. Cardiovascular: Normal heart rate and rhythm. Heart sound normal. No murmurs noted. Pulses normal throughout. Respiratory: No respiratory distress. Pain with inspiration. Breath sounds normal except for a wheeze noted on the right lower lobe. No rales/rhonchi noted. Chest TTP to right lateral posterior mid to lower rib cage. No ecchymosis, crepitus noted. Not consistent with flail chest. No accessory muscle usage noted or decreased air movement noted. Abdomen: Soft and nontender. Bowel sounds normal in all 4 quadrants. No distention noted. No organomegaly noted. No visible injury noted. Back: No costovertebral angle tenderness. Full range of motion noted. Tenderness noted near the spine on the right side. Skin: Skin warm and dry. Normal skin color. Normal skin turgor. No rashes/lesions/lacerations noted. Bruising noted on the right side. Extremities:Extremities exhibit normal range of motion. Extremities nontender. Neuro: Oriented X 3. No motor deficit. No sensory deficit. Reflexes normal. Results - Imaging (CT and X-ray): Confirmed right-sided rib fractures and a 5 mm pulmonary nodule. - Spirometer use reported post-discharge for respiratory assessment. Plan - Prescribe Augmentin to prevent respiratory infection. - Prescribe Albuterol inhaler for wheezing to facilitate breathing. - Flexeril prescribed for muscle relaxation to minimize rib area muscle tension. - Motrin recommended at 800 mg every six hours. - Monitor blood glucose levels closely due to diabetes and potential effects of prednisone. - Scheduled repeat CT scan in six months for pulmonary nodule follow-up. - Provide a work note for continued absence to allow sufficient recovery time. Patient was informed and verbally consented to the use of an ambient scribe for clinic note documentation during this visit. Discussion Notes I discussed the management of the rib fractures, emphasizing the importance of continuing the prescribed antibiotics to prevent infection and using the Albuterol inhaler to ease symptoms of wheezing. We discussed avoiding excessive use of prednisone due to his diabetes, and he agreed with the balance between controlling inflammation and managing blood sugar levels. I advised on continuing Motrin and implementing muscle relaxants to assist with pain management. I emphasized the need for careful monitoring of any symptoms potentially indicative of pneumonia and the necessity of the prescribed Augmentin as a preventative measure. We agreed on a follow-up visit within the next one to two weeks to monitor progress. Patient Instructions - Continue with Augmentin, Albuterol, Motrin, and Flexeril as prescribed. - Monitor blood sugar levels and watch for any unusual changes. - Use the inhaler as directed to alleviate wheezing. - Report any worsening symptoms, such as fever or bloody sputum, to the office immediately. - Avoid physical activities that could aggravate rib pain and follow prescribed rest periods. - Return for a follow-up appointment in one to two weeks for further evaluation.
[2024-07-10 09:48] VITALS: BP 110/70; PULSE 67; TEMP 35.9; O2SAT 97; BMI 40.3
== END 2024-07-10 10:17 | disposition home or self-care (01) ==
PROVIDERS: PCP Physician Assistant; Visit Provider Physician Assistant Medical
DX: S22.49XA Multiple fractures of ribs, unspecified side, initial encounter for closed fracture (principal); R91.1 Solitary pulmonary nodule

== ENCOUNTER → 2024-07-10 09:41 | Outpatient (BNVA) | payer BC, SELFPAY | PROVIDERS: PCP Physician Assistant; Visit Provider Physician Assistant Medical ==

== ENCOUNTER 2024-07-18 15:10 | Emergency (ER) | payer BC, SELFPAY ==
--- NOTE | ~2024-07-18 | XR_ITS ---
EXAMINATION: XR CHEST CLINICAL INFORMATION: cough, SOB COMPARISON: 07/27/2019. TECHNIQUE: 2 views of the chest were obtained. FINDINGS: Borderline cardiac enlargement. Mediastinal and hilar contours appear normal. The lungs are clear bilaterally. There is no pneumothorax or pleural effusion. There are mildly displaced fractures of the right posterior third, fourth, fifth, and sixth ribs. No additional fracture evident. XR/XR chest 2V IMPRESSION: 1. The lungs appear clear bilaterally. No pneumothorax or effusion. 2. There are mildly displaced fractures of the posterior right third through sixth ribs. Electronically signed by: Ayden Hart MD 07/18/2024 04:43 PM [facility] [place]
--- NOTE | 2024-07-18 15:16 | ECG_ITS ---
Test Reason : chest pain Blood Pressure : */* mmHG Vent. Rate : 71 BPM Atrial Rate : 71 BPM P-R Int : 156 ms QRS Dur : 88 ms QT Int : 372 ms P-R-T Axes : 70 -35 76 degrees QTcB Int : 404 ms Normal sinus rhythm Left axis deviation Nonspecific T wave abnormality Abnormal ECG No previous ECGs available Referred By: Generic ED Physician Electronically Signed By: AMY VELAZCO
[2024-07-18 15:53] VITALS: BP 167/123; PULSE 73; RESP 18; TEMP 36.8; O2SAT 97; BMI 39.5
--- NOTE | 2024-07-18 15:54 | ED_ITS ---
HPI - General Adult General Chief complaint: Upper Respiratory Symptoms Stated complaint: Chest pain Time Seen by Provider: 07/18/24 18:36 Source: patient Mode of arrival: ambulatory Limitations: no limitations History of Present Illness ED Provider: HPI narrative: Patient apparently fell 2 weeks ago while sitting on the chair lost balance and fell with the chair had 3rd rib to 6th fracture in the right side no other injury patient does have history of asthma for last 4- 5 days been wheezing and coughing more often worried about the pneumonia as pain is still there. Cough is occasionally has mucopurulent phlegm also wheezing alone no fever no chills no left-sided chest pain no cardiac issues Related Data Home Medications ?Medication ?Instructions ?Recorded ?Confirmed acetaminophen 650 mg See Rx Instructions PO Q8H 07/10/24 07/10/24 tablet,extended release (Pain Relief (acetaminophen)) Previous Rx's ?Medication ?Instructions ?Recorded blood-glucose meter (FreeStyle #1 ea 03/27/20 [place] kit) lancets 28 gauge (FreeStyle #100 ea 07/02/20 Lancets) blood sugar diagnostic (FreeStyle #100 ea 09/09/21 Lite Strips) albuterol sulfate 90 mcg/actuation 2 puff inhalation Q6H 30 days #8.5 11/11/22 aerosol inhaler grams fluticasone propionate 110 1 puff PO BID 30 days #12 grams 11/11/22 mcg/actuation HFA aerosol inhaler (Flovent HFA) triamcinolone acetonide 0.1 % 1 appl topical DAILY 30 days #80 03/24/23 topical cream grams albuterol sulfate 2.5 mg/3 mL 2.5 mg (3 mL) inhalation .QH8 PRN 06/26/24 (0.083 %) solution for nebulization shortness of breath or wheezing #270 mL amlodipine 5 mg tablet 5 mg PO DAILY #90 tabs 06/26/24 blood-glucose meter,continuous #1 ea 06/26/24 (FreeStyle Froylan 3 [place]) blood-glucose sensor (FreeStyle #1 ea 06/26/24 Froylan 3 Sensor device) furosemide 40 mg tablet 40 mg PO DAILY #40 tabs 06/26/24 insulin glargine 100 unit/mL (3 30 unit (0.3 mL) subcut QAM 30 06/26/24 mL) subcutaneous pen (Lantus days #9 mL Solostar U-100 Insulin) lisinopril 30 mg tablet 30 mg PO DAILY #90 tabs 06/26/24 pen needle, diabetic 32 gauge x #50 ea 06/26/24/ (BD Ultra-Fine Yina Pen Needle) albuterol sulfate 90 mcg/actuation 1 inh inhalation QID PRN shortness 07/10/24 aerosol inhaler of breath or wheezing #6.7 grams amoxicillin 875 mg-potassium 1 tab PO BID #20 tabs 07/10/24 clavulanate 125 mg tablet cyclobenzaprine 10 mg tablet 10 mg PO Q8H #30 tabs 07/10/24 ibuprofen 800 mg tablet 800 mg PO Q8H PRN pain #30 tabs 07/10/24 prednisone 20 mg tablet 20 mg PO DAILY #5 tabs 07/10/24 cefuroxime axetil 500 mg tablet 500 mg PO BID 7 days #14 tabs 07/18/24 codeine 10 mg-guaifenesin 100 mg/5 10 ml PO Q6H PRN cough #237 mL 07/18/24 mL oral liquid prednisone 20 mg tablet 40 mg (2 x 20 mg) PO DAILY #10 tabs 07/18/24 Allergies Allergy/AdvReac Type Severity Reaction Status Date / Time oxycodone Allergy Intermediate Palpitation Verified 07/18/24 15:58 s metformin AdvReac Intermediate Chills Verified 07/18/24 15:58 Review of Systems 2 Review of Systems: Yes all other systems are reviewed and are negative PMFSH Past Medical History Medical History Colon cancer screening Mild intermittent asthma in adult without complication Surgical History History of knee surgery Family History Family History Brother Myocardial infarction, Onset Age: 40 Father Social History Social History Housing: Apartment Alcohol intake: current Alcohol intake frequency: holidays/special occasions only Alcohol type: beer Patient Tobacco Use Status: Never used Tobacco Smoked in Last 30 Days: No e-Cigarette/Vaping Use: Never Used Second Hand Smoke Exposure: Yes Use of substances other than those prescribed or required for medical reasons: No Advance Directives: No Advance Directives Information Provided: No service: No 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 occupational 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 Oriented X3. No acute distress. Eyes: No pallor or icterus ENT: Pharynx normal. Oral Mucosa moist Neck: Normal inspection. Neck supple. CVS: Normal heart rate and rhythm. Pulses normal. Respiratory: No respiratory distress. Equal air entry bilateral, bilateral wheezing with tenderness of the right posterior ribs 3rd to 6th rib Abdomen: Soft and nontender. Bowel sounds are present, no mass palpable, no CVA tenderness Skin: Skin warm and dry. Normal skin color. Normal skin turgor. Extremities: No lower extremity edema. No calf tenderness Neuro: Oriented X 3. No motor deficit. No sensory deficit.No cerebellar signs , cranial nerves II-XII intact Course Course Course Narrative: This is an RME: Additional HPI, ROS, PE not included below will be deferred to primary provider. RME assessment and note performed by: Kim Roche PA-C This is a 59-year-old male who presents emergency department with complaints of cough, shortness of breath. Patient states that 2 weeks ago he had a mechanical fall and he fell out of his chair, and landed on concrete/tile floor. He went to [facility] and was diagnosed with 4 broken ribs. He is currently on antibiotic, and incentive spirometer. Reports he is developing a cough in his concerned he may have a pneumonia. Plan: Labs, EKG, chest x-ray, further ER evaluation needed. Medications Administered Discontinued Medications Generic Name Dose Route Start Last Admin Trade Name Petra PRN Reason Stop Dose Admin Cefuroxime Axetil 500 mg 07/18/24 19:00 07/18/24 19:16 Cefuroxime Axetil 500 Mg Tablet PO 07/18/24 19:01 500 mg ONCE ONE Administration Albuterol Sulfate 2.5 mg/ 0 mg 07/18/24 18:59 07/18/24 19:56 Albuterol/Ipratropium 3 ml INHALE 07/18/24 19:00 1 dose ONCE ONE Administration Guaifenesin/Codeine Phosphate 10 ml 07/18/24 19:00 07/18/24 19:16 Guaifen/Codeine Sf 200/20/10ml 10 Ml Liquid PO 07/18/24 19:01 10 ml ONCE ONE Administration Prednisone 60 mg 07/18/24 18:59 07/18/24 19:16 Prednisone 20 Mg Tablet PO 07/18/24 19:00 60 mg ONCE ONE Administration Medical Decision Making Medical Decision Making [facility] Narrative: Patient with pleuritic right-sided chest pain with asthma in bronchitis with multiple right ribs fracture no cardiac history no left-sided chest pain no acute ischemic changes incidentally patient had elevated troponin without any delta change CPK was not significant elevated likely patient has troponin released from pleuritic chest pain noncardiac etiology. Patient advised to follow with biology professor/PCP Differential Diagnosis Pneumothorax/pneumonia/pleurisy/rib fracture Lab Data [facility] Lab Attestation statement: I reviewed the patient's lab results. 07/18/24 16:39 07/18/24 16:39 Labs: Lab Results 07/18/24 07/18/24 Range/Units 16:39 18:48 WBC 10.0 (4.8-10.8) X10*3/uL RBC 5.51 (4.60-5.80) X10*6/uL Hgb 16.2 (14.0-18.0) g/dl Hct 47.5 (42.0-52.0) % MCV 86.2 (80.0-98.0) fL MCH 29.4 (27.0-33.0) pg MCHC 34.1 (31.0-36.0) g/dl RDW 11.6 (11.0-16.0) % Plt Count 197 (160-400) X10*3/uL MPV 11.2 (9.4-12.4) fL Immature Gran % (Auto) 0.3 (0.0-0.4) % Neut % (Auto) 65.3 (45-73) % Lymph % (Auto) 18.0 L (20-40) % [place] % (Auto) 6.5 (2-11) % Eos % (Auto) 8.9 H (0-4) % Baso % (Auto) 1.0 (0-2) % Lymph # (Auto) 1.8 (1.2-4.9) X10*3/uL [place] # (Auto) 0.7 (0.1-1.2) X10*3/uL Eos # (Auto) 0.9 H (0.0-0.4) X10*3/uL Baso # (Auto) 0.1 (0.0-0.2) X10*3/uL Abs Immat Gran (auto) 0.03 (0.00-0.03) X10*3/uL Absolute Neuts (auto) 6.6 (2.0-8.3) x10*3/uL Absolute Nucleated RBC 0.000 (0.0-0.012) X10*3/uL Nucleated RBC % (auto) 0.0 (0.0-0.2) /100WBC Sodium 135 (135-145) mmol/L Potassium 4.5 (3.3-5.1) mmol/L Chloride 99 (96-108) mmol/L Carbon Dioxide 31 H (22-29) mmol/L Anion Gap 10 L (12-20) BUN 13 (9-16) mg/dL Creatinine 0.87 (0.5-1.4) mg/dL Estim Creat Clear Calc 111.2 Estimated GFR > 60 Random Glucose 252 H (60-115) mg/dL Calcium 9.1 (8.4-10.2) mg/dL Total Bilirubin 0.5 (0.0-1.0) mg/dL Direct Bilirubin 0.2 (0.0-0.5) mg/dL AST 26 (5-37) U/L ALT 25 (0-40) U/L Alkaline Phosphatase 132 H (39-117) U/L Total Creatine Kinase 319 H (38-174) U/L Troponin I High Sens 436.0 H* 415.0 H* (<3.5-35.0) ng/L B-Natriuretic Peptide 91 (<100) pg/mL Total Protein 7.6 (6.5-8.0) g/dL Albumin 3.9 (3.5-5.0) g/dL Influenza Type A (PCR) NEGATIVE (Negative) Influenza Type B (PCR) NEGATIVE (Negative) RSV RNA Qual (PCR) NEGATIVE (Negative) SARS-CoV-2 RNA (RT-PCR) NEGATIVE (Negative) Independent Interpretation I performed an independent interpretation of an: EKG and Plain X-Ray Interpretation: Normal sinus rhythm heart rate 71 beats per minute left axis deviation no acute STT wave changes no acute ischemia Radiology Impression Discussion of test interpretation with radiology: I have reviewed the radiologist's reading. Radiologist Impression: XR/XR chest 2V IMPRESSION: 1. The lungs appear clear bilaterally. No pneumothorax or effusion. 2. There are mildly displaced fractures of the posterior right third through sixth ribs. Electronically signed by: Ayden Hart MD 07/18/2024 04:43 PM [facility] [place] Discharge Clinical Impression: Bronchitis, Ribs, multiple fractures Patient Disposition: Home, Self-Care Instructions: Rib Fracture (ED), Acute Bronchitis (ED) Additional Instructions: Continue take ibuprofen for pain Use albuterol inhaler/nebulizer as advised Prednisone and antibiotic as prescribed Cough syrup as prescribed Your have elevated cardiac enzymes but there is no signs of cardiac damage likely from the pleural inflammation Prescriptions: New codeine-guaifenesin 10-100 mg/5 mL liquid 10 ml PO Q6H PRN (Reason: cough) Qty: 237 0RF cefuroxime axetil 500 mg tablet 500 mg PO BID 7 Days Qty: 14 0RF prednisone 20 mg tablet 40 mg PO DAILY Qty: 10 0RF No Action triamcinolone acetonide 0.1 % cream 1 appl topical DAILY 30 Days Qty: 80 0RF (DME) blood-glucose meter [FreeStyle [place]] Kit See Rx Instructions .ROUTE .MEDSUPPLY Qty: 1 0RF Rx Instructions: As directed (DME) lancets [FreeStyle Lancets] 28 gauge misc See Rx Instructions .ROUTE .MEDSUPPLY Qty: 100 3RF Rx Instructions: As directed (DME) FreeStyle Lite Strips Strip See Rx Instructions .ROUTE .MEDSUPPLY Qty: 100 1RF Rx Instructions: As directed albuterol sulfate 90 mcg/actuation HFA aerosol inhaler 2 puff inhalation Q6H 30 Days Qty: 8.5 2RF fluticasone propionate [Flovent HFA] 110 mcg/actuation HFA aerosol inhaler 1 puff PO BID 30 Days Qty: 12 3RF furosemide 40 mg tablet 40 mg PO DAILY Qty: 40 3RF lisinopril 30 mg tablet 30 mg PO DAILY Qty: 90 1RF Lantus Solostar U-100 Insulin 100 unit/mL (3 mL) insulin pen 30 unit subcut QAM 30 Days Qty: 9 2RF Rx Instructions: Increased dose to 30 units (DME) FreeStyle Froylan 3 Sensor Device See Rx Instructions .Route Qty: 1 6RF Rx Instructions: As directed (DME) pen needle, diabetic [BD Ultra-Fine Yina Pen Needle] 32 gauge x 5/32 needle See Rx Instructions .ROUTE .MEDSUPPLY Qty: 50 4RF Rx Instructions: As directed (DME) FreeStyle Froylan 3 [place]ison Misc See Rx Instructions .Route Qty: 1 1RF Rx Instructions: As directed amlodipine 5 mg tablet 5 mg PO DAILY Qty: 90 1RF albuterol sulfate 2.5 mg /3 mL (0.083 %) solution for nebulization 2.5 mg inhalation .QH8 PRN (Reason: shortness of breath or wheezing) Qty: 270 0RF acetaminophen [Pain Relief (acetaminophen)] 650 mg tablet extended release See Rx Instructions PO Q8H Rx Instructions: 975mg orally every 8 hours; ibuprofen 800 mg tablet 800 mg PO Q8H PRN (Reason: pain) Qty: 30 1RF cyclobenzaprine 10 mg tablet 10 mg PO Q8H Qty: 30 1RF amoxicillin-pot clavulanate 875-125 mg tablet 1 tab PO BID Qty: 20 0RF albuterol sulfate 90 mcg/actuation HFA aerosol inhaler 1 inh inhalation QID PRN (Reason: shortness of breath or wheezing) Qty: 6.7 0RF prednisone 20 mg tablet 20 mg PO DAILY Qty: 5 0RF Interventions: ED Discharge Assessment Last Done: 07/18/24 20:50 Discharge Date/Time: 07/18/24 20:50 Print Language: Swiss
[2024-07-18 16:57] LABS: MANUAL DIFF FLAG NO
[2024-07-18 17:08] LABS: Basophils Absolute Auto 0.1 X10*3/uL (0.0-0.2); Eosinophils Absolute Auto 0.9 X10*3/uL (0.0-0.4); Eosinophils Percent Auto 8.9 % (0-4); Hematocrit 47.5 % (42.0-52.0); Hemoglobin 16.2 g/dl (14.0-18.0); Imm Gran Abs Auto 0.03 X10*3/uL (0.00-0.03); Imm Gran Pct Auto 0.3 % (0.0-0.4); Lymphocytes Absolute Auto 1.8 X10*3/uL (1.2-4.9); Mean Corpuscular HGB Conc 34.1 g/dl (31.0-36.0); Mean Corpuscular Hemoglobin 29.4 pg (27.0-33.0); Mean Corpuscular Volume 86.2 fL (80.0-98.0); Mean Platelet Volume 11.2 fL (9.4-12.4); Monocytes Absolute Auto 0.7 X10*3/uL (0.1-1.2); Monocytes Percent Auto 6.5 % (2-11); Neutrophils Absolute Auto 6.6 x10*3/uL (2.0-8.3); Neutrophils Percent Auto 65.3 % (45-73); Platelet Count 197 X10*3/uL (160-400); Red Blood Count 5.51 X10*6/uL (4.60-5.80); Red Cell Distribution Width 11.6 % (11.0-16.0)
[2024-07-18 17:19] LABS: B Type Natriuretic Peptide 91 pg/mL (<100)
[2024-07-18 17:25] LABS: Alanine Aminotransferase 25 U/L (0-40); Albumin Level 3.9 g/dL (3.5-5.0); Alkaline Phosphatase 132 U/L (39-117); Anion Gap 10 (12-20); Aspartate Amino Transferase 26 U/L (5-37); Bilirubin Direct 0.2 mg/dL (0.0-0.5); Bilirubin Total 0.5 mg/dL (0.0-1.0); Blood Urea Nitrogen 13 mg/dL (9-16); Calcium 9.1 mg/dL (8.4-10.2); Carbon Dioxide 31 mmol/L (22-29); Chloride 99 mmol/L (96-108); Creatinine Clr Calc Pharmacy 111.2; Estimated Glomerular Filt Rate > 60; Glucose Random 252 mg/dL (60-115); Potassium 4.5 mmol/L (3.3-5.1); Sodium 135 mmol/L (135-145); Total Protein 7.6 g/dL (6.5-8.0)
[2024-07-18 17:38] LABS: Influenza A PCR NEGATIVE (Negative); Influenza B PCR NEGATIVE (Negative); Resp Syncy Virus RNA Qual PCR NEGATIVE (Negative); SARS COV2 PCR INHOUSE NEGATIVE (Negative)
[2024-07-18 18:20] VITALS: BP 150/102; PULSE 71; RESP 14; TEMP 36.9; O2SAT 98
[2024-07-18 19:06] VITALS: BP 157/100; PULSE 74; RESP 16; TEMP 36.9; O2SAT 97
[2024-07-18] MEDS: guaiFEN/Codeine SF 200/20/10ML 10 ML LIQUID PO (19:16)
[2024-07-18] MEDS: cefuroxime axetiL 500 MG TABLET PO (19:16)
[2024-07-18] MEDS: predniSONE 20 MG TABLET 60 MG PO (19:16)
[2024-07-18] MEDS: Albuterol Sulfate 2.5 MG, Albuterol/Iprat 2.5/0.5MG 3 ML 3 ML INHALE (19:56)
[2024-07-18 19:57] VITALS: PULSE 71; RESP 18; O2SAT 97
[2024-07-18 20:50] VITALS: BP 137/92; PULSE 86; RESP 20; TEMP 36.8; O2SAT 95
== END 2024-07-18 20:50 | disposition home or self-care (01) ==
PROVIDERS: Physician Assistant Medical; Emergency Provider Internal Medicine; PCP Physician Assistant
DX: J40 Bronchitis, not specified as acute or chronic (principal); S22.41XA Multiple fractures of ribs, right side, initial encounter for closed fracture; W07.XXXA Fall from chair, initial encounter; Y93.9 Activity, unspecified; Y92.9 Unspecified place or not applicable; Y99.9 Unspecified external cause status; E11.9 Type 2 diabetes mellitus without complications; I10 Essential (primary) hypertension; J45.20 Mild intermittent asthma, uncomplicated; Z03.818 Encounter for observation for suspected exposure to other biological agents ruled out; Z79.4 Long term (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; Z79.899 Other long term (current) drug therapy
CPT/HCPCS: 0241U; 36415; 71046; 80048; 80076; 82550; 83880; 84484; 85025; 93005; 94640; 99284; 99285

== ENCOUNTER → 2024-07-18 15:16 | Outpatient (BNV) | payer BC, SELFPAY | PROVIDERS: Emergency Provider Internal Medicine; PCP Physician Assistant; Visit Provider Internal Medicine | DX: R94.31 Abnormal electrocardiogram [ECG] [EKG] (principal); R07.9 Chest pain, unspecified | CPT/HCPCS: 93010 ==

== ENCOUNTER → 2024-07-18 16:02 | Outpatient (BNV) | payer BC, SELFPAY | PROVIDERS: PCP Physician Assistant; Visit Provider Radiology Diagnostic Radiology | DX: R05.9 Cough, unspecified (principal); R06.02 Shortness of breath | CPT/HCPCS: 71046 ==

== ENCOUNTER 2024-07-20 15:16 | Outpatient (AMB) | payer BC, SELFPAY ==
--- NOTE | 2024-07-20 15:20 | A.OFFPC_ITS ---
Vital Signs 07/20/24 15:21 Height 5 ft 8 in Weight 262 lb 8 oz BMI 39.9 BP 140/100 H Blood Pressure Location Lt brachial Position Sitting Pulse 87 Pulse Source Pulse Oximeter Temp 97.1 F Temp Source Skin Pulse Oximetry (%) 97 Oxygen Delivery Method Room Air Intake Visit Reasons: 1 Week follow Up Intake Note: Patient is here to follow up on Fractured Ribs. Business Systems Advisor Required: No Notching Press Operator: Not Required per policy Accompanied by: Self / Same As Patient Allergies oxycodone Allergy (Intermediate, Verified 07/20/24 15:40) Palpitations metformin Adverse Reaction (Intermediate, Verified 07/20/24 15:40) Chills Medication List - Last Reconciled 07/20/24 by Lori Hurst PA-C acetaminophen ER (Pain Relief (acetaminophen)) 975mg orally every 8 hours; albuterol sulfate 90 mcg/actuation 2 puffs inhalation Q6H 30 days albuterol sulfate 2.5 mg (3 mL) inhalation .QH8 PRN albuterol sulfate 90 mcg/actuation 1 inh inhalation QID PRN amlodipine 5 mg PO DAILY amoxicillin-pot clavulanate 875-125 mg 1 tab PO BID blood sugar diagnostic (FreeStyle Lite Strips) As directed blood-glucose meter (FreeStyle Hackberry kit) As directed blood-glucose meter,continuous (FreeStyle Froylan 3 Lignum) As directed blood-glucose sensor (FreeStyle Froylan 3 Sensor device) As directed cefuroxime axetil 500 mg PO BID 7 days codeine-guaifenesin 10-100 mg/5 mL 10 mL PO Q6H PRN cyclobenzaprine 10 mg PO Q8H fluticasone propionate 110 mcg/actuation (Flovent HFA) 1 puff PO BID 30 days furosemide 40 mg PO DAILY ibuprofen 800 mg PO Q8H PRN insulin glargine (Lantus Solostar U-100 Insulin) 30 units (0.3 mL) subcut QAM 30 days lancets (FreeStyle Lancets) As directed lisinopril 30 mg PO DAILY pen needle, diabetic (BD Ultra-Fine Yina Pen Needle) As directed prednisone 40 mg (2 x 20 mg) PO DAILY prednisone 20 mg PO DAILY triamcinolone acetonide 0.1% 1 appl topical DAILY 30 days Tobacco use date assessed: 07/20/24 Dental Screening Dental Screen Date: 06/26/24 [facility] Medical History Colon cancer screening Mild intermittent asthma in adult without complication Surgical History History of knee surgery Family History Brother Myocardial infarction, Onset Age: 40 Father Social History Housing: Apartment Alcohol intake: current Alcohol intake frequency: holidays/special occasions only Alcohol type: beer Patient Tobacco Use Status: Never used Tobacco e-Cigarette/Vaping Use: Never Used Second Hand Smoke Exposure: Yes service: No Current occupational 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 Silvano Smith, Mallory Miramontes, Robert Walker and colleagues, with an educational evelyn from [employer]. 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 Will reassess at next visit BMI result Body Mass Index 39.9 BMI Assessment/Plan discussion: High BMI High, discussed plan: lifestyle, weight reduction, dietary, physical activity and alcohol moderation Tobacco/Smoking Status: Tobacco use Status Tobacco use date assessed 07/20/24 07/20/24 15:25 Patient Tobacco Use Status Never used Tobacco 07/20/24 15:25 e-Cigarette/Vaping Use Never Used 07/20/24 15:25 Thrive Assessment: Date of Thrive Assessment Date Thrive assessed 06/26/24 07/20/24 15:25 Coding Level of Care Code Est Pt Level 4 (99072) Complex EM visit Add On G2211 Diagnoses Ribs, multiple fractures S22.49XA Bronchitis J40 Type 2 diabetes mellitus with hyperglycemia, with long-term current use of insulin E11.65; Z79.4 Diabetes mellitus mcfp insulin use: with longitudinal float operator use Essential hypertension I10 Hypertension type: essential hypertension Class 3 severe obesity due to excess calories with serious comorbidity and body mass index (BMI) of 40.0 to 44.9 in adult E66.01; Z68.41 Obesity type: due to excess calories Obesity classification: adult class 3 (BMI >= 40) Serious obesity comorbidity presence: with serious comorbidity Body mass index: BMI 40.0-44.9 Class 3 obesity E66.813 Pulmonary nodule less than 6 mm determined by computed tomography of lung R91.1 Assessment & Plan Assessment & Plan (1) Ribs, multiple fractures: Code(s): S22.49XA - Multiple fractures of ribs, unspecified side, initial encounter for closed fracture Category: Medical Plan: Rib pain has significantly improved. Condition is chronic and stable will continue to monitor. (2) Bronchitis: Code(s): J40 - Bronchitis, not specified as acute or chronic Category: Medical Plan: Patient is currently on cefuroxime, prednisone and cough medicine taking as prescribed and feels much better. Lung exam is clear to auscultation. No evidence of pneumonia had recently a negative chest x-ray. Condition is stable will continue to monitor. 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 I explained to the patient while he is on prednisone this could elevate his blood glucose level and to monitor his glucose levels more often. He will call us if he is having any difficulties or uncontrolled blood glucose levels. Condition is chronic and stable continue to monitor. (4) HTN (hypertension): Code(s): I10 - Essential (primary) hypertension Category: Medical Qualifiers: Hypertension type: essential hypertension Qualified Code(s): I10 - Essential (primary) hypertension Plan: Patient currently on lisinopril 30 mg daily taking as prescribed. He is also on furosemide 40 mg daily. He is also on amlodipine 5 mg daily. Blood pressure noted to be elevated not at goal although patient is currently on prednisone, has the acute bronchitis infection and recently drank coffee. Will continue this regimen and reassess at next visit. Condition is chronic and stable continue to monitor. (5) Obesity: Code(s): E66.9 - Obesity, unspecified Category: Medical Qualifiers: Obesity type: due to excess calories Obesity classification: adult class 3 (BMI >= 40) Serious obesity comorbidity presence: with serious comorbidity Body mass index: BMI 40.0-44.9 Qualified Code(s): E66.01 - Morbid (severe) obesity due to excess calories; Z68.41 - Body mass index [BMI]40.0- 44.9, adult Plan: Patient will work on diet and exercise. Condition is chronic and stable continue to monitor. (6) Class 3 obesity: Code(s): E66.813 - Obesity, class 3 Category: Medical Plan: Patient will work on diet and exercise. Condition is chronic and stable continue to monitor. (7) Pulmonary nodule less than 6 mm determined by computed tomography of lung: Code(s): R91.1 - Solitary pulmonary nodule Category: Medical Plan: Patient to have repeat CT scan of lungs in 6 months. Condition is chronic and stable will continue to monitor. Plan Plan - Continue antibiotics and complete the current course as prescribed. - Continue prednisone and monitor blood glucose levels closely due to increased risk of hyperglycemia. - Continue using insulin therapy; ensure regular blood glucose monitoring, particularly in the morning. - Follow up with endocrinology to assess diabetes management and consider alternatives due to metformin allergy. - Follow-up with primary care is scheduled for September 26. Patient Instructions: Patient Instructions - Continue taking the prescribed antibiotics until the course is completed. - Continue prednisone as directed and monitor blood sugar levels regularly. - Use insulin as prescribed; ensure consistent blood glucose monitoring. - Keep the upcoming appointment with your primary healthcare provider on September 26. - If breathing difficulty increases or any other health concerns arise, seek medical advice promptly. - Practice deep breathing exercises to promote lung health. Scribe Plan - Not visible on output: History of Present Illness The patient is a 59-year-old male presenting with follow-up concerns regarding his rib fractures and recent bronchitis diagnosis. The rib fractures on the right side were previously noted, and the patient reports significant improvement in pain. However, he visited the emergency department two days prior due to difficulty breathing, fearing pneumonia, but was diagnosed with bronchit is instead. Treatment provided included antibiotics cefuroxime, prednisone, and Robitussin with codeine. The patient is diabetic, with a recent hemoglobin A1c of 11.5, indicating poor control. He is currently managing his diabetes with insulin but recalls an allergic reaction to metformin in the past, manifesting as chills and visual disturbances. Recent discussions with a healthcare professional have emphasized the potential elevation of blood sugars due to prednisone. Social History - Employment status not discussed; the patient expressed a strong work ethic. - Mention of diabetes in the patient?s spouse. - No other relevant social determinants discussed. Review of Systems - Respiratory: Reports ongoing cough - Neurological: Denies visual disturbances currently; previous black spots in vision when taking metformin Physical Exam Appearance: Alert. Oriented X3. No acute distress. Head: Normal external exam. Normocephalic. Atraumatic. Eyes: Pupils are equal, round, and reactive to light. Extraocular movements intact. Conjunctiva and sclera normal. Eyelids normal. Ears: External auditory canal normal. Throat: Pharynx normal. Uvula midline. Moist mucous membranes. Neck: Normal inspection. Neck supple. Full range of motion. No adenopathy. Thyroid Normal. No meningeal signs. No neck mass noted. Cardiovascular: Normal heart rate and rhythm. Heart sound normal. No murmurs noted. Pulses normal throughout. Respiratory: No respiratory distress. Painless inspiration. Breath sounds normal. No wheezes/rales/rhonchi noted. Chest nontender. No accessory muscle usage noted or decreased air movement noted. Abdomen: Soft and nontender. Bowel sounds normal in all 4 quadrants. No distention noted. No organomegaly noted. No visible injury noted. Back: No costovertebral angle tenderness. Full range of motion noted. Skin: Skin warm and dry. Normal skin color. Normal skin turgor. No rashes/lesions/lacerations noted. Extremities: No lower extremity edema. Extremities exhibit normal range of motion. Extremities nontender. Neuro: Oriented X 3. No motor deficit. No sensory deficit. Reflexes normal. Plan - Continue antibiotics and complete the current course as prescribed. - Continue prednisone and monitor blood glucose levels closely due to increased risk of hyperglycemia. - Continue using insulin therapy; ensure regular blood glucose monitoring, particularly in the morning. - Follow up with endocrinology to assess diabetes management and consider alternatives due to metformin allergy. - Follow-up with primary care is scheduled for September 26. Patient was informed and verbally consented to the use of an ambient scribe for clinic note documentation during this visit. Discussion Notes During our discussion, I reviewed the management of his bronchitis and emphasized the continuation of his prescribed medications, including antibiotics and prednisone, acknowledging their necessity despite the potential for hyperglycemia. We discussed the importance of regular blood glucose monitoring, especially due to the use of prednisone, and reiterated the need for ongoing use of insulin in his diabetes management. I acknowledged the patient's allergic reaction to metformin and confirmed it was prudent to avoid it. We discussed the patient's progress with rib pain, recognizing considerable improvement. A follow-up appointment is already scheduled with the patient's primary care provider to reassess diabetes management and ensure continued improvement in rib pain. Patient Instructions - Continue taking the prescribed antibiotics until the course is completed. - Continue prednisone as directed and monitor blood sugar levels regularly. - Use insulin as prescribed; ensure consistent blood glucose monitoring. - Keep the upcoming appointment with your primary healthcare provider on September 26. - If breathing difficulty increases or any other health concerns arise, seek medical advice promptly. - Practice deep breathing exercises to promote lung health.
[2024-07-20 15:21] VITALS: BP 140/100; PULSE 87; TEMP 36.2; O2SAT 97; BMI 39.9
== END 2024-07-20 15:39 | disposition home or self-care (01) ==
PROVIDERS: PCP Physician Assistant; Visit Provider Physician Assistant Medical
DX: S22.49XA Multiple fractures of ribs, unspecified side, initial encounter for closed fracture (principal); E11.65 Type 2 diabetes mellitus with hyperglycemia; Z79.4 Long term (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; E66.01 Morbid (severe) obesity due to excess calories; Z68.41 Body mass index [BMI] 40.0-44.9, adult; J40 Bronchitis, not specified as acute or chronic; I10 Essential (primary) hypertension; E66.813 Obesity, class 3; R91.1 Solitary pulmonary nodule

== ENCOUNTER 2024-08-31 09:03 | Inpatient (IN) | payer BC, SELFPAY ==
[2024-08-31] VITALS (9 sets, daily range): BP systolic 113–194; BP diastolic 70–118; PULSE 70–96; RESP 16–22; TEMP 36.8–37.1; O2SAT 93–99; BMI 40.1
--- NOTE | 2024-08-31 | ECG_ITS ---
Test Reason : SOB Blood Pressure : */* mmHG Vent. Rate : 82 BPM Atrial Rate : 82 BPM P-R Int : 146 ms QRS Dur : 80 ms QT Int : 372 ms P-R-T Axes : 80 -25 78 degrees QTcB Int : 434 ms Normal sinus rhythm Nonspecific T wave abnormality Abnormal ECG When compared with ECG of 18-Jul-2024 15:20, No significant change was found Referred By: Generic ED Physician Electronically Signed By: AMY VELAZCO
--- NOTE | ~2024-08-31 | CT_ITS ---
EXAMINATION: CT ANGIOGRAM CHEST CLINICAL INFORMATION: Elevated troponins with dyspnea. COMPARISON: No prior CT. Chest radiograph 08/31/2024. TECHNIQUE: Multiple axial images were obtained through the chest after the administration of 50 mL of Omnipaque 350 intravenous contrast. Extensive vascular post-processing including two-dimensional and three-dimensional reformatted images were created and reviewed on an independent workstation. This CT examination was performed using dose optimization techniques as appropriate, variously including the following: *Automated exposure control *Adjustment of mA and/or kV according to patient size (this includes techniques or standardized protocols for targeted exams where dose is matched to indication/reason for exam; i.e. extremities or head) *Use of iterative reconstruction technique FINDINGS: VASCULAR: There is no evidence of pulmonary embolus. Main pulmonary artery is normal in caliber. There is no evidence of acute aortic syndrome or aneurysm. There is no significant atheromatous plaque. There is mild/borderline cardiomegaly. No pericardial effusion. No contrast reflux into the IVC. No right heart strain. Great vessels are patent and enhance normally. LUNGS: Minimal gravity dependent atelectasis in the right lung. Lungs are otherwise clear. There is mild small airway thickening, suggesting chronic bronchitis. Central airways are patent. PLEURA: There is no pleural effusion. No pleural mass or thickening. There is no pneumothorax. MEDIASTINUM: Normal thyroid. There is a precarinal lymph node measuring up to 1.0 cm short axis. This is nonspecific. No additional abnormal or enlarged lymph nodes. No masses. Normal esophagus. Probable small type I hiatus hernia. AXILLA/CHEST WALL: No malignant lymphadenopathy. There is mild male gynecomastia bilaterally. UPPER ABDOMEN: Unremarkable. OSSEOUS STRUCTURES: No suspicious lytic or blastic bone lesion. CT/CT angio chest PE protocol IMPRESSION: 1. Examination negative for pulmonary embolus. No evidence of acute aortic syndrome. 2. Mild cardiac enlargement. 3. Lungs demonstrate mild small airway thickening bilaterally, in keeping with acute or chronic bronchitis. Lungs otherwise clear. 4. Borderline enlarged precarinal and right hilar lymph nodes, nonspecific and most likely reactive in this setting. 5. Probable small type I hiatus hernia. Electronically signed by: Ayden Hart MD 09/01/2024 12:35 PM EDT
--- NOTE | ~2024-08-31 | XR_ITS ---
EXAMINATION: XR CHEST CLINICAL INFORMATION: cough/sob COMPARISON: 07/18/2024. TECHNIQUE: 2 views of the chest were obtained. FINDINGS: Mild cardiac enlargement. Mediastinal and hilar contours appear normal. The lungs are mildly hyperaerated, however clear bilaterally. There is no pneumothorax or pleural effusion. There is no focal osseous or soft tissue abnormality. XR/XR chest 2V IMPRESSION: 1. Mild cardiomegaly. 2. Mildly hyperaerated lungs without active pulmonary disease. No change prior exam. Electronically signed by: Ayden Hart MD 08/31/2024 10:26 AM EDT
[2024-08-31 09:25] LABS: MANUAL DIFF FLAG NO
[2024-08-31 09:29] LABS: Basophils Absolute Auto 0.1 X10*3/uL (0.0-0.2); Basophils Percent Auto 1.1 % (0-2); Eosinophils Absolute Auto 0.8 X10*3/uL (0.0-0.4); Eosinophils Percent Auto 10.1 % (0-4); Hematocrit 40.9 % (42.0-52.0); Hemoglobin 14.3 g/dl (14.0-18.0); Imm Gran Abs Auto 0.02 X10*3/uL (0.00-0.03); Imm Gran Pct Auto 0.3 % (0.0-0.4); Lymphocytes Absolute Auto 1.9 X10*3/uL (1.2-4.9); Lymphocytes Percent Auto 23.8 % (20-40); Mean Corpuscular Hemoglobin 29.2 pg (27.0-33.0); Mean Corpuscular Volume 83.6 fL (80.0-98.0); Mean Platelet Volume 11.2 fL (9.4-12.4); Monocytes Absolute Auto 0.7 X10*3/uL (0.1-1.2); Monocytes Percent Auto 8.3 % (2-11); Neutrophils Absolute Auto 4.4 x10*3/uL (2.0-8.3); Neutrophils Percent Auto 56.4 % (45-73); Platelet Count 210 X10*3/uL (160-400); Red Blood Count 4.89 X10*6/uL (4.60-5.80); White Blood Count 7.8 X10*3/uL (4.8-10.8)
[2024-08-31 09:39] LABS: Prothrombin Time 11.2 SEC (10.9-12.4)
[2024-08-31 09:49] LABS: Alanine Aminotransferase 18 U/L (0-40); Albumin Level 3.7 g/dL (3.5-5.0); Alkaline Phosphatase 98 U/L (39-117); Anion Gap 10 (12-20); Aspartate Amino Transferase 23 U/L (5-37); Bilirubin Total 0.7 mg/dL (0.0-1.0); Blood Urea Nitrogen 12 mg/dL (9-16); Carbon Dioxide 29 mmol/L (22-29); Chloride 100 mmol/L (96-108); Estimated Glomerular Filt Rate > 60; Glucose Random 224 mg/dL (60-115); Potassium 4.1 mmol/L (3.3-5.1); Sodium 135 mmol/L (135-145); Total Protein 7.1 g/dL (6.5-8.0)
[2024-08-31 10:19] LABS: Influenza A PCR NEGATIVE (Negative); Influenza B PCR NEGATIVE (Negative); Resp Syncy Virus RNA Qual PCR NEGATIVE (Negative); SARS COV2 PCR INHOUSE NEGATIVE (Negative)
--- NOTE | 2024-08-31 11:17 | ED_ITS ---
HPI - SOB/Dyspnea General Chief Complaint: Dyspnea Stated Complaint: SOB Time Seen by Provider: 08/31/24 11:11 Source: patient Mode of arrival: ambulatory Limitations: no limitations History of Present Illness ED Provider: DR. Smith HPI Narrative: 59-year-old male came in for evaluation of shortness of breath started about 2- 1/2 months ago since he broke multiple ribs on right side, patient stated that dyspnea is worse more at night patient now asleep on the recliner to avoid shortness of breath, patient reported also lower extremity swelling he takes water pills at home, known history of hypertension, no history of cigarette smoking, no history of lung disease or heart disease. No fever, no chills, no coughing. Chest pain, no chest injury , no recent travel, no recent prolonged immobilization, no lower extremity tenderness. Related Data Home Medications ?Medication ?Instructions ?Recorded ?Confirmed acetaminophen 650 mg See Rx Instructions PO Q8H 07/10/24 07/20/24 tablet,extended release (Pain Relief (acetaminophen)) Previous Rx's ?Medication ?Instructions ?Recorded blood-glucose meter (FreeStyle #1 ea 03/27/20 Obion kit) lancets 28 gauge (FreeStyle #100 ea 07/02/20 Lancets) blood sugar diagnostic (FreeStyle #100 ea 09/09/21 Lite Strips) albuterol sulfate 90 mcg/actuation 2 puff inhalation Q6H 30 days #8.5 11/11/22 aerosol inhaler grams fluticasone propionate 110 1 puff PO BID 30 days #12 grams 11/11/22 mcg/actuation HFA aerosol inhaler (Flovent HFA) triamcinolone acetonide 0.1 % 1 appl topical DAILY 30 days #80 03/24/23 topical cream grams albuterol sulfate 2.5 mg/3 mL 2.5 mg (3 mL) inhalation .QH8 PRN 06/26/24 (0.083 %) solution for nebulization shortness of breath or wheezing #270 mL amlodipine 5 mg tablet 5 mg PO DAILY #90 tabs 06/26/24 blood-glucose meter,continuous #1 ea 06/26/24 (FreeStyle Froylan 3 Furman) blood-glucose sensor (FreeStyle #1 ea 06/26/24 Froylan 3 Sensor device) furosemide 40 mg tablet 40 mg PO DAILY #40 tabs 06/26/24 insulin glargine 100 unit/mL (3 30 unit (0.3 mL) subcut QAM 30 06/26/24 mL) subcutaneous pen (Lantus days #9 mL Solostar U-100 Insulin) lisinopril 30 mg tablet 30 mg PO DAILY #90 tabs 06/26/24 pen needle, diabetic 32 gauge x #50 ea 06/26/24 (BD Ultra-Fine Yina Pen Needle) albuterol sulfate 90 mcg/actuation 1 inh inhalation QID PRN shortness 07/10/24 aerosol inhaler of breath or wheezing #6.7 grams amoxicillin 875 mg-potassium 1 tab PO BID #20 tabs 07/10/24 clavulanate 125 mg tablet cyclobenzaprine 10 mg tablet 10 mg PO Q8H #30 tabs 07/10/24 ibuprofen 800 mg tablet 800 mg PO Q8H PRN pain #30 tabs 07/10/24 prednisone 20 mg tablet 20 mg PO DAILY #5 tabs 07/10/24 cefuroxime axetil 500 mg tablet 500 mg PO BID 7 days #14 tabs 07/18/24 codeine 10 mg-guaifenesin 100 mg/5 10 ml PO Q6H PRN cough #237 mL 07/18/24 mL oral liquid prednisone 20 mg tablet 40 mg (2 x 20 mg) PO DAILY #10 tabs 07/18/24 Allergies Allergy/AdvReac Type Severity Reaction Status Date / Time oxycodone Allergy Intermediate Palpitation Verified 08/31/24 09:12 s metformin AdvReac Intermediate Chills Verified 08/31/24 09:12 Review of Systems 2 Review of Systems: All other systems are reviewed and are negative Constitutional: Reports as per HPI and Reports no additional constitutional complaints Eyes: Reports as per HPI and Reports no additional eye complaints Reports system reviewed and no additional complaints, except as documented Cardiovascular: Reports as per HPI and Reports no additional cardiovascular complaints Respiratory: Reports as per HPI and Reports no additional respiratory complaints Gastrointestinal: Reports as per HPI and Reports no additional gastrointestinal complaints Genitourinary: Reports no additional female genitourinary complaints Musculoskeletal: Reports no additional musculoskeletal complaints Skin/Breast: Reports system reviewed and no additional complaints, except as docu Psychiatric: Reports no additional psychiatric complaints Endocrine: Reports no additional endocrine complaints Hematologic/Lymphatic: Reports no additional hematologic/lymphatic complaints Allergic/Immunologic: Reports no additional allergic/immunologic complaints Reports system reviewed and no additional complaints, except as documented and Reports Abnormal speech present [facility] Past Medical History Medical History Colon cancer screening Mild intermittent asthma in adult without complication Surgical History History of knee surgery Family History Family History Brother Myocardial infarction, Onset Age: 40 Father Social History Social History Housing: Apartment Alcohol intake: current Alcohol intake frequency: holidays/special occasions only Alcohol type: beer Patient Tobacco Use Status: Never used Tobacco e-Cigarette/Vaping Use: Never Used Second Hand Smoke Exposure: Yes Advance Directives: No Advance Directives Information Provided: Yes service: No 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 Blood pressure elevated. Heart rate normal. Respiratory rate normal. Temperature normal. Oxygen saturation normal. Appearance: Alert. Oriented X3. No acute distress. Head: Normal external exam. Normocephalic. Atraumatic. No Bowman signs noted. No raccoon eyes noted Eyes: PERRLA. EOMI. Conjunctiva and sclera normal. Eyelids normal. ENT: TM's Normal. Pharynx normal. Uvula midline. Moist mucous membranes. No trismus noted. No drooling noted. No muffled voice noted. Neck: Normal inspection. Neck supple. FROM. No adenopathy. Thyroid Normal. No meningeal signs. No neck mass noted. CVS: Normal heart rate and rhythm. Heart sound normal. No murmurs noted. Pulses normal throughout. Respiratory: No respiratory distress. Painless inspiration. Breath sounds normal. No wheezes/rales/rhonchi noted. Chest nontender. No accessory muscle usage noted or decreased air movement noted. Abdomen: Soft and nontender. Bowel sounds normal in all 4 quadrants. No distention noted. No organomegaly noted. No visible injury noted. Back: No CVA tenderness. Full range of motion noted. Skin: Skin warm and dry. Normal skin color. Normal skin turgor. No rashes/lesions/lacerations noted. Extremities: +2 lower extremity edema. Extremities exhibit normal range of motion. Extremities nontender. Neuro: Oriented X 3. Cranial nerve exam: II-XII are grossly intact No motor deficit. No sensory deficit. Reflexes normal. Course Reevaluation(s) Reevaluation #1: 59-year-old male presented with 2 months progressive dyspnea, exam/labs reveals non STEMI. Case discussed with Dr. Jha who advised to admit and start on heparin drip. 1. Initially hypertensive improved with nitro and Lasix. 2. Exam is consistent with mild CHF, continue with Lasix diuresis. 3. Elevated troponin with no chest pain no ischemic change on the EKG start on heparin drip, ASA, Statin. 4. Pulmonary embolism is not likely with negative D-dimer and no risk. 4. Admit. Time: 13:09 Medications Administered Discontinued Medications Generic Name Dose Route Start Last Admin Trade Name Freq PRN Reason Stop Dose Admin Aspirin 81 mg 08/31/24 11:19 08/31/24 11:51 Aspirin Enteric Coated 81 Mg Tablet.Dr PO 08/31/24 11:20 81 mg ONCE ONE Administration Furosemide 40 mg 08/31/24 11:19 08/31/24 11:52 Furosemide 40 Mg/4 Ml Vial IVPUSH 08/31/24 11:20 40 mg ONCE ONE Administration Protocol Nitroglycerin 0.5 inch 08/31/24 11:19 08/31/24 11:51 Nitroglycerin 2 % Oint 1 Gm Packet TRANSDERMA 08/31/24 11:20 0.5 inch ONCE ONE Administration Medical Decision Making Differential Diagnosis Differential Diagnoses: The differential diagnosis associated with the presentation includes ( ACS, pulmonary embolism, pneumonia, pneumothorax, pleural effusion, CHF, electrolyte derangement, severe anemia.) Admission/Observation Consideration of admission/observation: Escalation of care including admission/observation considered Consult Healthcare Provider Management of the patient was discussed with: Hospitalist ( Dr. Meza) Lab Data MDM Lab Attestation statement: I reviewed the patient's lab results. 08/31/24 09:20 08/31/24 09:20 Labs: Lab Results 08/31/24 08/31/24 Range/Units 09:20 11:45 WBC 7.8 (4.8-10.8) X10*3/uL RBC 4.89 (4.60-5.80) X10*6/uL Hgb 14.3 (14.0-18.0) g/dl Hct 40.9 L (42.0-52.0) % MCV 83.6 (80.0-98.0) fL MCH 29.2 (27.0-33.0) pg MCHC 35.0 (31.0-36.0) g/dl RDW 12.0 (11.0-16.0) % Plt Count 210 (160-400) X10*3/uL MPV 11.2 (9.4-12.4) fL Immature Gran % (Auto) 0.3 (0.0-0.4) % Neut % (Auto) 56.4 (45-73) % Lymph % (Auto) 23.8 (20-40) % [place] % (Auto) 8.3 (2-11) % Eos % (Auto) 10.1 H (0-4) % Baso % (Auto) 1.1 (0-2) % Lymph # (Auto) 1.9 (1.2-4.9) X10*3/uL [place] # (Auto) 0.7 (0.1-1.2) X10*3/uL Eos # (Auto) 0.8 H (0.0-0.4) X10*3/uL Baso # (Auto) 0.1 (0.0-0.2) X10*3/uL Abs Immat Gran (auto) 0.02 (0.00-0.03) X10*3/uL Absolute Neuts (auto) 4.4 (2.0-8.3) x10*3/uL Absolute Nucleated RBC 0.000 (0.0-0.012) X10*3/uL Nucleated RBC % (auto) 0.0 (0.0-0.2) /100WBC PT 11.2 (10.9-12.4) SEC INR 1.0 (0.9-1.1) D-Dimer High Sensitivty < 150 NG/ML Sodium 135 (135-145) mmol/L Potassium 4.1 (3.3-5.1) mmol/L Chloride 100 (96-108) mmol/L Carbon Dioxide 29 (22-29) mmol/L Anion Gap 10 L (12-20) BUN 12 (9-16) mg/dL Creatinine 0.87 (0.5-1.4) mg/dL Estim Creat Clear Calc 112.0 Estimated GFR > 60 Random Glucose 224 H (60-115) mg/dL Calcium 9.0 (8.4-10.2) mg/dL Total Bilirubin 0.7 (0.0-1.0) mg/dL AST 23 (5-37) U/L ALT 18 (0-40) U/L Alkaline Phosphatase 98 (39-117) U/L Troponin I High Sens 987.0 H* D (<3.5-35.0) ng/L B-Natriuretic Peptide 126 H (<100) pg/mL Total Protein 7.1 (6.5-8.0) g/dL Albumin 3.7 (3.5-5.0) g/dL Influenza Type A (PCR) NEGATIVE (Negative) Influenza Type B (PCR) NEGATIVE (Negative) RSV RNA Qual (PCR) NEGATIVE (Negative) SARS-CoV-2 RNA (RT-PCR) NEGATIVE (Negative) Independent Interpretation I performed an independent interpretation of an: Plain X-Ray ( chest:1. Mild cardiomegaly. 2. Mildly hyperaerated lungs without active pulmonary disease. No change prior exam.) Radiology Impression Discussion of test interpretation with radiology: I have reviewed the radiologist's reading. Chronic Conditions Patient?s care impacted by: Hypertension Critical Care Time Critical Care Time Critical Care Time: Yes Total Critical Care Time: 60 Attestation: The patient was critically ill with a high probability of imminent or life- threatening deterioration. I spent greater than 30 minutes of discontinuous time evaluating the patient, delivering critical care at the bedside, discussing evaluating data with consultants. Critical care time does not include time spent performing separately billable procedures or teaching. Time spent performing critical care was 60 minutes. Discharge Plan Discharge Clinical Impression: Non-ST elevated myocardial infarction (non-STEMI) Patient Disposition: Admitted As Inpatient
[2024-08-31] MEDS: Aspirin Enteric Coated 81 MG TABLET.DR PO (11:51)
[2024-08-31] MEDS: Nitroglycerin 2 % Oint 1 GM Packet 0.5 INCH TRANSDERMA (11:51)
[2024-08-31] MEDS: Furosemide 40 MG/4 ML VIAL IVPUSH (11:52)
[2024-08-31 12:03] LABS: D Dimer High Sensitivity < 150 NG/ML
[2024-08-31 12:21] LABS: B Type Natriuretic Peptide 126 pg/mL (<100)
--- NOTE | 2024-08-31 13:07 | CA_ITS ---
Transthoracic Echocardiogram Patient (Last, First, Middle): Osman Eedn O Gender: Male Date of : 1965 Age: 59 Procedure Date: 08/31/2024 Procedure Type: Transthoracic Echocardiogram Location: ER Height: 172.72 cm Weight: 119.3 kg BSA: 2.30 m2 Heart Rate: 81 bpm BP: 122 / 77 mmHg Combiner: DAVID Referring MD: Espinoza Smith MD Symptoms: SOB, elevated troponin Study Quality: Fair ECG Rhythm: Sinus Conclusions: - The left ventricular systolic function is low normal. The visually estimated ejection fraction is between 50-55%. - Possible basal inferior hypokinesis. - No obvious valvular pathology seen on this study. Findings Procedure Information Contrast agent, definity, is being given per protocol without apparent complications. The quality of the study was technically difficult. The study quality is limited by patients body habitus and lung artifact. Left Ventricle Normal left ventricular cavity size. The left ventricular systolic function is low normal. The visually estimated ejection fraction is between 50-55%. Diastolic function is normal for age. There is mild septal asymmetric hypertrophy. Possible basal inferior hypokinesis. Right Ventricle Normal right ventricular cavity size and systolic function. Atria Both atria are normal in size. Interatrial shunt cannot be excluded. Aortic Valve The aortic valve was not well visualized. There is mild calcification of the aortic valve. There is no aortic valve stenosis. There is no aortic valve regurgitation. Mitral Valve The mitral valve appears normal. There is no mitral valve regurgitation. There is no mitral valve stenosis. Pulmonic Valve The pulmonic valve is likely normal. Tricuspid Valve There is no tricuspid valve regurgitation. Tricuspid regurgitation envelope is inadequate for calculation of right ventricular systolic pressure. Great Vessels The asc aorta is normal in size. Venous The inferior vena cava is normal in size and collapses greater than 50% with inspiration. Pericardium/Pleural There is no evidence of pericardial effusion. Prior Study Comparison Changes noted compared to prior study dated: 08/09/2019. LVEF slightly lower than prior study, but difficult to compare due to image quality. Recommendations, Care & Conclusions No obvious valvular pathology seen on this study. Measurements 2D Linear Measurements IVSd: 1.22 0.6-0.9/0.6-1.0 cm LVIDd: 5.30 3.9-5.3/4.2-5.9 cm LVIDd Index: 2.30 2.4-3.2/2.2-3.1 cm/m2 LVIDs: 3.98 2.0-3.6 cm LVPWd: 0.94 0.7-1.1 cm LA Diam: 4.20 2.7-3.8/3.0-4.0 cm LAIDs Index: 1.83 1.5-2.3 cm/m2 LV Mass: 277.46 67-162/88-224 g LV Mass Index: 120.63 43-95/49-115 g/m2 LVOT Diam: 2.10 3.0+(-)1.3 cm 2D Systolic Function EF 4C: 45.40 >55% EF 2C: 50.00 >55% EF BiP: 49.00 >55% Mitral Valve MV Pk E: 0.41 MV PK A: 0.61 MV Decel Time: 153.00 E/A: 0.70 E'Lateral: 5.00 E'Medial: 4.03 E/E' Med: 10.10 E/E' Lat: 8.10 PHT: 45.00 MVA PHT: 4.89 Decel Cidra: 2.67 Aortic Valve AoV Pk Jermaine: 1.26 AoV Pk Grad: 6.00 ALEX: 3.13 LVOT LVOT Pk Jermaine: 1.12 LVOT Mn Jermaine: 0.79 LVOT VTI: 0.21 LVOT Pk Grad: 5.00 LVOT Mn Grad: 3.00 LVOT Diam: 2.10 LVOT Area: 3.46 Diastolic Function MV Pk E: 0.41 MV Pk A: 0.61 E/A: 0.70 E'Medial: 4.03 E/E' Med: 10.10 E' Laterial: 5.00 E/E' Lat: 8.10 Right Ventricle TAPSE (mm): 17.80 TVS' Jermaine: 14.80 Tricuspid Valve RA Press: 3.00 Great Vessels Aorta Sinus of Valsalva: 3.50 2.0-3.5 cm Ao Asc: 3.50 2.1-3.4 cm Pulmonary Veins Pulm Vein S/D 1.40 Pulmonary Valve PV Pk Jermaine: 1.21 Peak PV Grad: 6.00 Updated in Other Vendor System with Status of Final Leeroy Jha MD electronically signed on 08/31/2024 3:42:35 PM with status of Final
--- NOTE | 2024-08-31 13:14 | P.HPHOSP_ITS ---
History of Present Illness Date of Service: 08/31/24 Chief Complaint: Dyspnea,chest pain This is a 59-year-old male with pertinent history of hypertension, insulin- dependent diabetes mellitus, lower leg edema, INGRIS not compliant with CPAP, mild intermittent asthma not on home oxygen who presents to the emergency department for evaluation of dyspnea. Patient states his symptoms started about 2 months prior to presentation. No history of CHF that he knows of. He has been having dyspnea which is worse with lying flat. Patient is also unable to sleep and is getting up in the middle of the night due to shortness of breath. Patient takes Lasix for his lower leg edema and states that his edema has worsened recently. Is noncompliant with his home medications and occasionally misses his Lasix dose. Denies chest pain. No fever, chills cough. Does not use oxygen at home. No nausea, vomiting, palpitations, abdominal pain, changes in urinary or bowel habits. In the emergency department, patient was given IV diuresis. Troponin found to be elevated and Cardiology was consulted who recommended IV heparin drip. Review of Systems 2 Constitutional: Constitutional: Reports fatigue, Reports malaise and Reports weight gain Cardiovascular: Cardiovascular: Reports dyspnea on exertion, Reports orthopnea and Reports paroxysmal nocturnal dyspnea Respiratory: Respiratory: Reports dyspnea on exertion Gastrointestinal: Gastrointestinal: Reports no additional gastrointestinal complaints Genitourinary: Genitourinary: Reports no additional male genitourinary complaints Endocrine: Endocrine: Reports fatigue [facility] Medical History Type 2 diabetes mellitus with hyperglycemia HTN (hypertension) Class 3 obesity INGRIS (obstructive sleep apnea) Colon cancer screening Mild intermittent asthma in adult without complication Family History Brother Myocardial infarction, Onset Age: 40 Father Surgical History History of knee surgery Social History Housing: Apartment Alcohol intake: current Alcohol intake frequency: holidays/special occasions only Alcohol type: beer Patient Tobacco Use Status: Never used Tobacco e-Cigarette/Vaping Use: Never Used Second Hand Smoke Exposure: Yes Advance Directives: No Advance Directives Information Provided: Yes service: No 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 occupational 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 Cognitive needs: No Hearing needs: No Vision needs: Yes (reading glasses) Meds Allergies Allergy/AdvReac Type Severity Reaction Status Date / Time oxycodone Allergy Intermediate Palpitation Verified 08/31/24 09:12 s metformin AdvReac Intermediate Chills Verified 08/31/24 09:12 Active Medications: Current Medications Heparin Sodium (Porcine) (Heparin Sodium,Porcine 5,000 Unit/Ml Vial) 4,800 unit 40 unit/kg (4800 unit) IVPUSH PROTOCOL BOLUS PRN; Protocol PRN Reason: 40 unit/kg - Heparin Protocol Heparin Sodium (Porcine) (Heparin Sodium,Porcine 5,000 Unit/Ml Vial) 9,600 unit 80 unit/kg (9600 unit) IVPUSH PROTOCOL BOLUS PRN; Protocol PRN Reason: 80 unit/kg - Heparin Protocol Heparin Sodium/Sodium Chloride (Heparin Sodium,Porcine/1/2ns) 25,000 unit in 250 mls @ 0 mls/hr IVCONT .Q0M KATLIN; Protocol Home Medications ?Medication ?Instructions ?Recorded ?Confirmed ?Last Taken ?Type acetaminophen 650 mg See Rx Instructions PO Q8H 07/10/24 07/20/24 Unknown History tablet,extended release (Pain Relief (acetaminophen)) Physical Exam 2 Vital Signs and Narrative: Vital Signs: Last Vital Signs Temp 98.8 F 08/31/24 09:07 Pulse 86 08/31/24 12:19 Resp 20 08/31/24 12:19 BP 137/89 08/31/24 12:19 Pulse Ox 97 08/31/24 12:19 O2 Del Method Room Air 08/31/24 12:19 BMI result Body Mass Index 40.1 Middle-aged male lying in bed in mild distress Neck supple Regular rate and rhythm, S1-S2 heard Bilateral crackles Abdomen soft nontender, no guarding, no rigidity Patient is awake, alert and oriented to self, place, time and person ; no focal motor deficit Psych: Normal mood Pedal edema 2+ Results Labs 08/31/24 09:20 08/31/24 09:20 Labs: Laboratory Results - last 24 hr 08/31/24 08/31/24 09:20 11:45 MCV 83.6 MCH 29.2 MCHC 35.0 RDW 12.0 Plt Count 210 MPV 11.2 Immature Gran % (Auto) 0.3 Neut % (Auto) 56.4 Lymph % (Auto) 23.8 [place] % (Auto) 8.3 Eos % (Auto) 10.1 H Baso % (Auto) 1.1 Lymph # (Auto) 1.9 [place] # (Auto) 0.7 Eos # (Auto) 0.8 H Baso # (Auto) 0.1 Abs Immat Gran (auto) 0.02 Absolute Neuts (auto) 4.4 Absolute Nucleated RBC 0.000 Nucleated RBC % (auto) 0.0 PT 11.2 INR 1.0 D-Dimer High Sensitivty < 150 Anion Gap 10 L Estim Creat Clear Calc 112.0 Estimated GFR > 60 Random Glucose 224 H Calcium 9.0 Total Bilirubin 0.7 AST 23 ALT 18 Alkaline Phosphatase 98 B-Natriuretic Peptide 126 H Total Protein 7.1 Albumin 3.7 Influenza Type A (PCR) NEGATIVE Influenza Type B (PCR) NEGATIVE RSV RNA Qual (PCR) NEGATIVE SARS-CoV-2 RNA (RT-PCR) NEGATIVE Imaging Radiologist's Impressions: Impressions Chest X-Ray 08/31/24 10:11 IMPRESSION: 1. Mild cardiomegaly. 2. Mildly hyperaerated lungs without active pulmonary disease. No change prior exam. Electronically signed by: Ayden Hart MD 08/31/2024 10:26 AM EDT RP Assessment and Plan (1) Non-ST elevated myocardial infarction (non-STEMI): Status: Acute (2) CHF exacerbation: Status: Acute Plan This is a 59-year-old male with pertinent history of hypertension, insulin- dependent diabetes mellitus, lower leg edema, INGRIS not compliant with CPAP, mild intermittent asthma not on home oxygen who presents to the emergency department for evaluation of dyspnea. # Acute decompensated CHF, unspecified EF: Will admit patient with IV diuresis. Is noncompliant with p.o. medications and admits he occasionally misses p.o. Lasix which he takes for lower leg edema. No history of CHF as per patient. Does have PND and orthopnea on admission. Falsely low BNP d/t obesity. Strict I's and O's and low-salt diet. Obtaining transthoracic echocardiogram. # NSTEMI: On IV heparin drip as per cardiology. Received aspirin. Not on B mikey # Insulin dependent diabetes milletus with hyperglycemia : Initiating basal plus insulin regimen # HTN: Continue home antihypertensives # INGRIS: Will order CPAP at bedtime, noncompliant at home # Obesity: Counseled regarding diet and exercise Med rec pending DVT prophylaxis: IV Heparin Fullcode Admit as inpatient and will require two night minimum hospital stay for IV diuresis, IV heparin (as above), which is not possible in a lesser acute setting. Quality Stroke Does the patient have a stroke diagnosis?: No VTE Prior VTE?: No VTE Risk Level:: Medical - moderate - high VTE Device Contraindication: Treatment Not Indicated VTE Drug Contraindication: N/A - Med Ordered
--- NOTE | 2024-08-31 13:19 | PC.NURSE ---
patient states he has no chest pain, states sob is slightly better. patient resting quietly, resp even and unlabored.
[2024-08-31] MEDS: Heparin Sodium,Porcine 5,000 UNIT/ML VIAL 4000 UNIT IVPUSH (13:25)
[2024-08-31] MEDS: Heparin Sodium,Porcine/1/2NS 25,000 UNIT/250 ML IV.SOLN 10 UNIT IVCONT (13:27)
[2024-08-31 13:54] LABS: Hematocrit 44.2 % (42.0-52.0); Mean Corpuscular HGB Conc 33.9 g/dl (31.0-36.0); Mean Corpuscular Hemoglobin 28.8 pg (27.0-33.0); Mean Corpuscular Volume 84.8 fL (80.0-98.0); Mean Platelet Volume 11.6 fL (9.4-12.4); Platelet Count 230 X10*3/uL (160-400); Red Blood Count 5.21 X10*6/uL (4.60-5.80); Red Cell Distribution Width 11.9 % (11.0-16.0); White Blood Count 7.3 X10*3/uL (4.8-10.8)
[2024-08-31] MEDS: Atorvastatin Calcium 80 MG TABLET PO (14:07)
--- NOTE | 2024-08-31 14:14 | PHA.MEDREC ---
Addendum entered by Yuniel Akers [facility] 08/31/24 14:43: Med rec checked by [facility] Original Note: Pharmacy Consult ? Medication Reconciliation Pharmacy has completed the medication reconciliation. Spoke to patient to confirm med list. Patient states he is no longer taking Cyclobenzaprine 10 mg and hasn't needed to take Acetaminophen 650 mg in a while. Patient last took his medications yesterday.
[2024-08-31] MEDS: Albuterol Sulfate 90 MCG 8 GM INHALER 2 PUFF INHALE (15:15)
--- NOTE | 2024-08-31 16:56 | PC.NURSE ---
patient states that he feels as if he is breathing better, patient states that he feels less sob. patient denies any chest pain or complaints. patient sitting in chair in room. patient VSS, alert and oriented x4, no signs of bleeding. call ponce within reach
[2024-08-31 17:03] LABS: Glucose, Whole Blood 261 mg/dL (60-115)
[2024-08-31] MEDS: Insulin Lispro 100 UNIT/ML 3 ML VIAL SUBCUT ×2 (18:39→21:31)
[2024-08-31] MEDS: Albuterol Sulfate (0.083%) 2.5 MG/3 ML VIAL.NEB INHALE (19:09)
--- NOTE | 2024-08-31 19:12 | PC.NURSE ---
pt requested prn ventolin for SOB. pt states it improved in the time this nurse went to fetch the med. expiratory wheezing hear bilaterally. SpO2 95%. pt appears calm sitting in chair next to . nebulizer running. call ponce in reach
[2024-08-31 19:52] LABS: PTT Heparin Drip 39.6 SEC (53-77.9)
[2024-08-31] MEDS: Heparin Sodium,Porcine 5,000 UNIT/ML VIAL 4800 UNIT IVPUSH (20:06)
[2024-08-31 21:14] LABS: Glucose, Whole Blood 279 mg/dL (60-115)
[2024-09-01] VITALS (9 sets, daily range): BP systolic 111–139; BP diastolic 72–97; PULSE 64–95; RESP 16–20; TEMP 36.3–37.2; O2SAT 94–99
[2024-09-01 02:19] LABS: PTT Heparin Drip 61.1 SEC (53-77.9)
[2024-09-01 07:02] LABS: Glucose, Whole Blood 179 mg/dL (60-115)
[2024-09-01] MEDS: Heparin Sodium,Porcine/1/2NS 25,000 UNIT/250 ML IV.SOLN 12.39 UNIT IVCONT (07:07)
[2024-09-01] MEDS: Insulin Glargine,Hum.rec.anlog 100 UNIT/ML 10 ML VIAL 24 UNIT SUBCUT (07:51)
[2024-09-01] MEDS: lisinopriL 10 MG TABLET 30 MG PO (07:52)
[2024-09-01] MEDS: Insulin Lispro 100 UNIT/ML 3 ML VIAL SUBCUT ×4 (07:52→20:43)
[2024-09-01] MEDS: Furosemide 40 MG/4 ML VIAL IVPUSH (07:52)
[2024-09-01] MEDS: amLODIPine Besylate 5 MG TABLET PO (07:53)
[2024-09-01] MEDS: 0.9 % Sodium Chloride Flush 3 ML SYRINGE IVFLUSH ×2 (08:06→16:14)
[2024-09-01 08:34] LABS: Prothrombin Time 11.6 SEC (10.9-12.4)
[2024-09-01 08:36] LABS: PTT Heparin Drip 41.8 SEC (53-77.9)
[2024-09-01] MEDS: Albuterol Sulfate 90 MCG 8 GM INHALER 2 PUFF INHALE ×3 (08:37→18:56)
[2024-09-01 08:42] LABS: Hematocrit 45.4 % (42.0-52.0); Hemoglobin 15.1 g/dl (14.0-18.0); Mean Corpuscular HGB Conc 33.3 g/dl (31.0-36.0); Mean Corpuscular Hemoglobin 28.7 pg (27.0-33.0); Mean Corpuscular Volume 86.1 fL (80.0-98.0); Mean Platelet Volume 11.6 fL (9.4-12.4); Platelet Count 214 X10*3/uL (160-400); Red Blood Count 5.27 X10*6/uL (4.60-5.80); Red Cell Distribution Width 12.1 % (11.0-16.0); White Blood Count 8.6 X10*3/uL (4.8-10.8)
[2024-09-01 08:46] LABS: Anion Gap 13 (12-20); Blood Urea Nitrogen 11 mg/dL (9-16); Calcium 9.9 mg/dL (8.4-10.2); Carbon Dioxide 31 mmol/L (22-29); Chloride 99 mmol/L (96-108); Creatinine Clr Calc Pharmacy 109.5; Estimated Glomerular Filt Rate > 60; Glucose Random 200 mg/dL (60-115); Potassium 4.6 mmol/L (3.3-5.1); Sodium 138 mmol/L (135-145)
[2024-09-01] MEDS: Heparin Sodium,Porcine 5,000 UNIT/ML VIAL 4800 UNIT IVPUSH (09:02)
[2024-09-01 09:14] LABS: B Type Natriuretic Peptide 61 pg/mL (<100)
--- NOTE | 2024-09-01 09:51 | MHC.CM.PN ---
Pt self-care, lives at home with his . Education provided and new HCP completed with pt, now on file. Pt will transport himself home at discharge (car is in lot). PCP: Saad RAMIREZ
[2024-09-01 11:14] LABS: Glucose, Whole Blood 229 mg/dL (60-115)
--- NOTE | 2024-09-01 11:15 | PM.CNCAR ---
History of Present Illness History of Present Illness Date of Service: 09/01/24 Chief complaint: dyspnea Narrative: This is a cardiology consultation regarding elevated troponins. Patient denies any history of coronary disease or myocardial infarction or cardiomyopathy or in fact any other cardiac issues. Patient has morbid obesity, diabetes, hypertension, obstructive sleep apnea noncompliant with CPAP as well as asthma. Apparently, he was on a high chair and some of fell down and this happened couple of months ago. He came to the ER and he had rib fractures. Troponins were checked and they were also abnormal but not pursued. Now he states that he has been short of breath for the last couple of months. Not entirely clear if that is started after the fall and rib fractures or not. He is on having any clear-cut chest pains. Troponins were again checked and they were much higher than before and hence he is admitted. Currently, he denies any chest pains but does get short of breath with activity. He states he was told to have asthma and that has been going on for the last few years. However, not to this extent. Review of Systems Review of Systems: Yes all other systems are reviewed and are negative Constitutional: Constitutional: Reports as per HPI and Reports no additional constitutional complaints Eyes: Eyes: Reports as per HPI and Denies no additional eye complaints ENT: Denies system reviewed and no additional complaints, except as documented and Reports as per HPI Cardiovascular: Cardiovascular: Reports as per HPI, Reports no additional cardiovascular complaints, Denies acrocyanosis, Denies cool extremities, Denies chest pain, Denies leg edema, Denies lightheadedness, Denies palpitations and Reports dyspnea Respiratory: Respiratory: Reports as per HPI, Denies no additional respiratory complaints, Reports cough and Reports dyspnea Gastrointestinal: Gastrointestinal: Reports as per HPI and Denies no additional gastrointestinal complaints Genitourinary: Genitourinary: Reports no additional male genitourinary complaints and Reports as per HPI Musculoskeletal: Musculoskeletal: Reports no additional musculoskeletal complaints and Reports as per HPI Integumentary/Breasts: Skin/Breast: Reports system reviewed and no additional complaints, except as docu Neurologic: Reports system reviewed and no additional complaints, except as documented and Reports as per HPI Psychiatric: Psychiatric: Reports no additional psychiatric complaints and Reports as per HPI Endocrine: Endocrine: Reports no additional endocrine complaints, Reports as per HPI and Denies palpitations Hematologic/Lymphatic: Hematologic/Lymphatic: Reports no additional hematologic/lymphatic complaints and Reports as per HPI Allergic/Immunologic: Allergic/Immunologic: Reports no additional allergic/immunologic complaints and Reports as per HPI [facility] Past Medical History Medical History Type 2 diabetes mellitus with hyperglycemia HTN (hypertension) Class 3 obesity INGRIS (obstructive sleep apnea) Colon cancer screening Mild intermittent asthma in adult without complication Family History Family History Brother Myocardial infarction, Onset Age: 40 Father Surgical History Surgical History History of knee surgery Social History Social History Household Members: Spouse Housing: House Do you presently have visiting nurse or other home services: No Alcohol intake: current Alcohol intake frequency: holidays/special occasions only Alcohol type: beer Patient Tobacco Use Status: Never used Tobacco e-Cigarette/Vaping Use: Never Used Second Hand Smoke Exposure: Yes service: No Current occupational 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 Cognitive needs: No Hearing needs: No Vision needs: Yes (reading glasses) Meds Allergies Allergy/AdvReac Type Severity Reaction Status Date / Time oxycodone Allergy Intermediate Palpitation Verified 08/31/24 09:12 s metformin AdvReac Intermediate Chills Verified 08/31/24 09:12 Active Medications: Current Medications Acetaminophen (Acetaminophen 325 Mg Tablet) 650 mg PO Q6H PRN PRN Reason: Pain, Mild 1-3,fever,headache Albuterol Sulfate (Albuterol Sulfate (0.083%) 2.5 Mg/3 Ml Vial.Neb) 2.5 mg INHALE .QH8 PRN PRN Reason: shortness of breath or wheezing Last Admin: 08/31/24 19:09 Dose: 2.5 mg Albuterol Sulfate (Albuterol Sulfate 90 Mcg 8 Gm Inhaler) 2 puff INHALE Q6H [facility] Last Admin: 09/01/24 08:37 Dose: 2 puff Amlodipine Besylate (Amlodipine Besylate 5 Mg Tablet) 5 mg PO DAILY [facility]; Protocol Last Admin: 09/01/24 07:53 Dose: 5 mg Calcium Carbonate (Calcium Carbonate 750 Mg Tab.Chew) 750 mg PO Q4H PRN PRN Reason: Heartburn Dextrose (Dextrose 50 % 25 Gm/50 Ml Syringe) 25 gm IVPUSH Q15M PRN; Protocol PRN Reason: per Hypoglycemia Standing Ord. Glucose (Glucose Gel 15 Gm Gel..Gram.) 15 gm PO Q15M PRN; Protocol PRN Reason: per Hypoglycemia Standing Ord. Heparin Sodium (Porcine) (Heparin Sodium,Porcine 5,000 Unit/Ml Vial) 4,800 unit 40 unit/kg (4800 unit) IVPUSH PROTOCOL BOLUS PRN; Protocol PRN Reason: 40 unit/kg - Heparin Protocol Last Admin: 09/01/24 09:02 Dose: 4,800 unit Heparin Sodium (Porcine) (Heparin Sodium,Porcine 5,000 Unit/Ml Vial) 9,600 unit 80 unit/kg (9600 unit) IVPUSH PROTOCOL BOLUS PRN; Protocol PRN Reason: 80 unit/kg - Heparin Protocol Heparin Sodium/Sodium Chloride (Heparin Sodium,Porcine/1/2ns) 25,000 unit in 250 mls @ 0 mls/hr IVCONT .Q0M [facility]; Protocol Last Titration: 09/01/24 09:03 Dose: 12.36 units/kg/hr, 14.77 mls/hr Insulin Glargine (Insulin Glargine,Hum.Rec.Anlog 100 Unit/Ml 10 Ml Vial) 24 unit SUBCUT DAILY [facility] Last Admin: 09/01/24 07:51 Dose: 24 unit Insulin Human Lispro (Insulin Lispro 100 Unit/Ml 3 Ml Vial) 0 unit SUBCUT QIDACHS [facility]; Protocol Last Admin: 09/01/24 07:52 Dose: 2 unit Lisinopril (Lisinopril 10 Mg Tablet) 30 mg PO DAILY [facility]; Protocol Last Admin: 09/01/24 07:52 Dose: 30 mg Magnesium Hydroxide (Milk Of Magnesia 30 Ml Oral.Susp) 30 ml PO DAILY PRN PRN Reason: Constipation Melatonin (Melatonin 3 Mg Tablet) 6 mg PO BEDTIME PRN PRN Reason: Insomnia Ondansetron HCl (Ondansetron Hcl 4 Mg/2 Ml Vial) 4 mg IVPUSH Q8H PRN PRN Reason: Nausea and Vomiting Sodium Chloride (0.9 % Sodium Chloride Flush 3 Ml Syringe) 3 ml IVFLUSH QSHIFT [facility] Last Admin: 09/01/24 08:06 Dose: 3 ml Home Medications ?Medication ?Instructions ?Recorded ?Confirmed ?Last Taken ?Type insulin glargine 100 unit/mL (3 30 unit subcut DAILY 08/31/24 08/31/24 08/30/24 History mL) subcutaneous pen (Lantus Solostar U-100 Insulin) Physical Exam Vital Signs: Vital Signs: Last Vital Signs Temp 97.3 F 09/01/24 07:02 Pulse 86 09/01/24 08:40 Resp 20 09/01/24 08:40 BP 139/92 H 09/01/24 07:02 Pulse Ox 96 09/01/24 07:02 O2 Del Method Room Air 09/01/24 07:02 BMI result Body Mass Index 40.1 Const: General: comfortable and no acute distress Orientation/consciousness: patient oriented x3 HEENT: Other: Unremarkable Head: Yes normal to inspection Neck: Neck: Yes normal visual inspection Chest: Chest palpation & inspection: normal inspection of the chest Resp: Auscultation: clear to auscultation bilaterally Cardio: Palpation: normal PMI Heart sounds: S1 normal heart sound present, S2 normal heart sound present, no gallops, no murmurs and no rubs GI: Palpation (GI): Soft to palpation Back/Spine/Pelvis: Other: unremarkable Skin: General skin exam: no rashes or lesions noted Neuro: General: patient oriented x3 Extrem: General: Yes normal to inspection Psych: Mental Status: mental status grossly normal Objective Labs and Meds 09/01/24 08:05 09/01/24 08:05 Lab results: Laboratory Results - last 24 hr 08/31/24 08/31/24 08/31/24 11:45 13:39 15:05 WBC 7.3 RBC 5.21 Hgb 15.0 Hct 44.2 MCV 84.8 MCH 28.8 MCHC 33.9 RDW 11.9 Plt Count 230 MPV 11.6 Absolute Nucleated RBC 0.000 Nucleated RBC % (auto) 0.0 PT INR aPTT Heparin Protocol D-Dimer High Sensitivty < 150 Sodium Potassium Chloride Carbon Dioxide Anion Gap BUN Creatinine Estim Creat Clear Calc Estimated GFR POC Glucose Random Glucose Calcium Magnesium Troponin I High Sens 987.0 H* D 953.0 H* B-Natriuretic Peptide 126 H 0308/31/24 08/31/24 17:00 19:34 21:07 WBC RBC Hgb Hct MCV MCH MCHC RDW Plt Count MPV Absolute Nucleated RBC Nucleated RBC % (auto) PT INR aPTT Heparin Protocol 39.6 L D-Dimer High Sensitivty Sodium Potassium Chloride Carbon Dioxide Anion Gap BUN Creatinine Estim Creat Clear Calc Estimated GFR POC Glucose 261 H 279 H Random Glucose Calcium Magnesium Troponin I High Sens B-Natriuretic Peptide 09/01/24 09/01/24 09/01/24 02:05 06:58 08:05 WBC 8.6 RBC 5.27 Hgb 15.1 Hct 45.4 MCV 86.1 MCH 28.7 MCHC 33.3 RDW 12.1 Plt Count 214 MPV 11.6 Absolute Nucleated RBC 0.000 Nucleated RBC % (auto) 0.0 PT 11.6 INR 1.0 aPTT Heparin Protocol 61.1 D 41.8 L D D-Dimer High Sensitivty Sodium 138 Potassium 4.6 Chloride 99 Carbon Dioxide 31 H Anion Gap 13 BUN 11 Creatinine 0.89 Estim Creat Clear Calc 109.5 Estimated GFR > 60 POC Glucose 179 H Random Glucose 200 H Calcium 9.9 D Magnesium 2.0 Troponin I High Sens B-Natriuretic Peptide 61 09/01/24 11:11 WBC RBC Hgb Hct MCV MCH MCHC RDW Plt Count MPV Absolute Nucleated RBC Nucleated RBC % (auto) PT INR aPTT Heparin Protocol D-Dimer High Sensitivty Sodium Potassium Chloride Carbon Dioxide Anion Gap BUN Creatinine Estim Creat Clear Calc Estimated GFR POC Glucose 229 H Random Glucose Calcium Magnesium Troponin I High Sens B-Natriuretic Peptide ECG Interpretation: EKG with underlying sinus rhythm at 82/Min; nonspecific ST-T changes in the lateral leads; normal LA and corrected Q; similar to prior. Assessment and Plan (1) Non-ST elevated myocardial infarction (non-STEMI): Status: Acute Plan Troponin levels are 987 and 953. Even in June, they were in the 400s. In the echocardiogram, LVEF is 50-55%. Possible basal inferior hypokinesis. No significant valvular findings. In the chest x-ray, mild cardiomegaly; mildly hyperinflated lungs but no active disease. Overall, recent rib fractures, progressive shortness of breath, no angina, elevated troponins for the last 2 months. Less likely to be primary NSTEMI and more so of demand. We will need to get a CT scan of lungs for further evaluation. Otherwise, keep on IV heparin drip for the time being. Likely diagnostic catheterization eventually. We will follow up with you. Procedures Date of Service Date of Service: 09/01/24
--- NOTE | 2024-09-01 11:38 | PC.NURSE ---
Addendum entered by Dianne Machuca RN 09/01/24 13:45: Heparin gtt. restarted around 12:06 upon arrival back to unit from CT. Addendum entered by Dianne Machuca RN 09/01/24 11:56: Pt. off unit for STAT CT angio chest. Original Note: Pt. on heparin gtt. Titrated per protocol. See MAR. Pt. went down for STAT CT. Heparin gtt. paused per MD Gavin. Pt. updated on plan of care.
[2024-09-01] MEDS: iohexoL 350 MG/ML 100 ML INFUS..BTL IV (12:09)
--- NOTE | 2024-09-01 13:14 | P.PNIM_ITS ---
Subjective Subjective Date of Service: 09/01/24 Interval History: dyspnea improved, no chest pain some wheezing legs swollen Physical Exam 2 Vital Signs: Vital Signs: Last Vital Signs Temp 98.1 F 09/01/24 11:43 Pulse 64 09/01/24 11:43 Resp 20 09/01/24 11:43 BP 111/76 09/01/24 11:43 Pulse Ox 96 09/01/24 11:43 O2 Del Method Room Air 09/01/24 11:43 BMI result Body Mass Index 40.1 Gen: in no acute distress HEENT: sclera anicteric, moist mucus membranes Neck: supple Lungs: soft expiratory wheezes Heart: regular rate and rhythm, no murmurs Abd: soft, non-tender, non-distended, obese Ext: 1+ bilateral leg edema Skin: warm/well-perfused Neuro: alert and oriented x3, no focal findings Psych: appropriate affect Objective Data Active Medications Acetaminophen (Acetaminophen 325 Mg Tablet) 650 mg PO Q6H PRN PRN Reason: Pain, Mild 1-3,fever,headache Albuterol Sulfate (Albuterol Sulfate (0.083%) 2.5 Mg/3 Ml Vial.Neb) 2.5 mg INHALE .QH8 PRN PRN Reason: shortness of breath or wheezing Last Admin: 08/31/24 19:09 Dose: 2.5 mg Documented By: ABDELRAHMAN Albuterol Sulfate (Albuterol Sulfate 90 Mcg 8 Gm Inhaler) 2 puff INHALE Q6H [facility] Last Admin: 09/01/24 08:37 Dose: 2 puff Documented By: ADRIENNE Amlodipine Besylate (Amlodipine Besylate 5 Mg Tablet) 5 mg PO DAILY [facility]; Protocol Last Admin: 09/01/24 07:53 Dose: 5 mg Documented By: CARMEL Calcium Carbonate (Calcium Carbonate 750 Mg Tab.Chew) 750 mg PO Q4H PRN PRN Reason: Heartburn Dextrose (Dextrose 50 % 25 Gm/50 Ml Syringe) 25 gm IVPUSH Q15M PRN; Protocol PRN Reason: per Hypoglycemia Standing Ord. Glucose (Glucose Gel 15 Gm Gel..Gram.) 15 gm PO Q15M PRN; Protocol PRN Reason: per Hypoglycemia Standing Ord. Heparin Sodium (Porcine) (Heparin Sodium,Porcine 5,000 Unit/Ml Vial) 4,800 unit 40 unit/kg (4800 unit) IVPUSH PROTOCOL BOLUS PRN; Protocol PRN Reason: 40 unit/kg - Heparin Protocol Last Admin: 09/01/24 09:02 Dose: 4,800 unit Documented By: CARMEL Heparin Sodium (Porcine) (Heparin Sodium,Porcine 5,000 Unit/Ml Vial) 9,600 unit 80 unit/kg (9600 unit) IVPUSH PROTOCOL BOLUS PRN; Protocol PRN Reason: 80 unit/kg - Heparin Protocol Heparin Sodium/Sodium Chloride (Heparin Sodium,Porcine/1/2ns) 25,000 unit in 250 mls @ 0 mls/hr IVCONT .Q0M [facility]; Protocol Last Titration: 09/01/24 12:06 Dose: 12.37 units/kg/hr, 14.78 mls/hr Documented By: CARMEL Co-signed By: FRED Insulin Glargine (Insulin Glargine,Hum.Rec.Anlog 100 Unit/Ml 10 Ml Vial) 24 unit SUBCUT DAILY [facility] Last Admin: 09/01/24 07:51 Dose: 24 unit Documented By: CARMEL Insulin Human Lispro (Insulin Lispro 100 Unit/Ml 3 Ml Vial) 0 unit SUBCUT QIDACHS [facility]; Protocol Last Admin: 09/01/24 12:11 Dose: 4 unit Documented By: CARMEL Lisinopril (Lisinopril 10 Mg Tablet) 30 mg PO DAILY [facility]; Protocol Last Admin: 09/01/24 07:52 Dose: 30 mg Documented By: CARMEL Magnesium Hydroxide (Milk Of Magnesia 30 Ml Oral.Susp) 30 ml PO DAILY PRN PRN Reason: Constipation Melatonin (Melatonin 3 Mg Tablet) 6 mg PO BEDTIME PRN PRN Reason: Insomnia Ondansetron HCl (Ondansetron Hcl 4 Mg/2 Ml Vial) 4 mg IVPUSH Q8H PRN PRN Reason: Nausea and Vomiting Sodium Chloride (0.9 % Sodium Chloride Flush 3 Ml Syringe) [facility] Last Admin: 09/01/24 08:06 Dose: 3 ml Documented By: CARMEL Labs 09/01/24 08:05 09/01/24 08:05 Labs: Laboratory Results - last 24 hr 08/31/24 08/31/24 08/31/24 13:39 17:00 19:34 MCV 84.8 MCH 28.8 MCHC 33.9 RDW 11.9 Plt Count 230 MPV 11.6 Absolute Nucleated RBC 0.000 Nucleated RBC % (auto) 0.0 PT INR aPTT Heparin Protocol 39.6 L Anion Gap Estim Creat Clear Calc Estimated GFR POC Glucose 261 H Random Glucose Calcium Magnesium B-Natriuretic Peptide 08/31/24 09/01/24 09/01/24 21:07 02:05 06:58 MCV MCH MCHC RDW Plt Count MPV Absolute Nucleated RBC Nucleated RBC % (auto) PT INR aPTT Heparin Protocol 61.1 D Anion Gap Estim Creat Clear Calc Estimated GFR POC Glucose 279 H 179 H Random Glucose Calcium Magnesium B-Natriuretic Peptide 09/01/24 09/01/24 08:05 11:11 MCV 86.1 MCH 28.7 MCHC 33.3 RDW 12.1 Plt Count 214 MPV 11.6 Absolute Nucleated RBC 0.000 Nucleated RBC % (auto) 0.0 PT 11.6 INR 1.0 aPTT Heparin Protocol 41.8 L D Anion Gap 13 Estim Creat Clear Calc 109.5 Estimated GFR > 60 POC Glucose 229 H Random Glucose 200 H Calcium 9.9 D Magnesium 2.0 B-Natriuretic Peptide 61 Impressions Chest CTA 09/01/24 11:54 IMPRESSION: 1. Examination negative for pulmonary embolus. No evidence of acute aortic syndrome. 2. Mild cardiac enlargement. 3. Lungs demonstrate mild small airway thickening bilaterally, in keeping with acute or chronic bronchitis. Lungs otherwise clear. 4. Borderline enlarged precarinal and right hilar lymph nodes, nonspecific and most likely reactive in this setting. 5. Probable small type I hiatus hernia. Electronically signed by: Ayden Hart MD 09/01/2024 12:35 PM EDT Assessment and Plan (1) Non-ST elevated myocardial infarction (non-STEMI): Status: Acute Assessment and Plan: d2 for 59yo M with HTN, MD2, lower leg edema, INGRIS noncompliant with CPAP, mild intermittent asthma presenting with progressive dyspnea and found to have elevated but flat troponins NSTEMI - on IV heparin; continue ASA; Cardiology consulted; will likely eventual need cardiac cath acute HFpEF - change IV to PO furosemide. TTE 08/31: - The left ventricular systolic function is low normal. The visually estimated ejection fraction is between 50-55%. - Possible basal inferior hypokinesis. - No obvious valvular pathology seen on this study. acute asthma exacerbation - start prednisone, give prn albuterol DM2 with hyperglycemia - basal-bolus insulin INGRIS - CPAP at night HTN - amlodipine + lisinopril morbid obesity - diet/exercise counseling VTE ppx - on heparin gtt dispo - TBD In my clinical judgment, the patient requires continued inpatient hospitalization for the following reasons: heparinization Total time managing care of this patient today: 40 minutes. Quality Stroke Does the patient have a stroke diagnosis?: No VTE Prior VTE?: No VTE Risk Level:: Medical - moderate - high VTE Device Contraindication: Treatment Not Indicated VTE Drug Contraindication: N/A - Med Ordered
[2024-09-01] MEDS: predniSONE 20 MG TABLET 40 MG PO (13:27)
[2024-09-01] MEDS: Aspirin 81 MG TAB.CHEW PO (13:34)
[2024-09-01 14:54] LABS: PTT Heparin Drip 61.8 SEC (53-77.9)
[2024-09-01 16:07] LABS: Glucose, Whole Blood 252 mg/dL (60-115)
[2024-09-01 20:38] LABS: Glucose, Whole Blood 394 mg/dL (60-115)
[2024-09-02] MEDS: Heparin Sodium,Porcine/1/2NS 25,000 UNIT/250 ML IV.SOLN 14.78 UNIT IVCONT (00:23)
[2024-09-02 03:37] VITALS: BP 126/73; PULSE 64; RESP 16; TEMP 36.6; O2SAT 96
[2024-09-02 06:59] LABS: PTT Heparin Drip 61.8 SEC (53-77.9)
[2024-09-02 07:06] LABS: Anion Gap 12 (12-20); Blood Urea Nitrogen 14 mg/dL (9-16); Calcium 9.4 mg/dL (8.4-10.2); Carbon Dioxide 27 mmol/L (22-29); Chloride 102 mmol/L (96-108); Creatinine Clr Calc Pharmacy 124.9; Estimated Glomerular Filt Rate > 60; Glucose Random 198 mg/dL (60-115); Potassium 4.3 mmol/L (3.3-5.1); Sodium 137 mmol/L (135-145)
[2024-09-02 07:33] VITALS: BP 116/81; PULSE 83; RESP 18; TEMP 36.3; O2SAT 97
--- NOTE | 2024-09-02 07:35 | PC.NURSE ---
New bag of heparin hung at 09/02/2024 00:23 with second RN verified.
[2024-09-02] MEDS: Albuterol Sulfate 90 MCG 8 GM INHALER 2 PUFF INHALE (07:49)
[2024-09-02 07:50] VITALS: PULSE 83; RESP 18; O2SAT 96
[2024-09-02] MEDS: amLODIPine Besylate 5 MG TABLET PO (08:31)
[2024-09-02] MEDS: Insulin Glargine,Hum.rec.anlog 100 UNIT/ML 10 ML VIAL 24 UNIT SUBCUT (08:32)
[2024-09-02] MEDS: lisinopriL 10 MG TABLET 30 MG PO (08:32)
[2024-09-02] MEDS: Insulin Lispro 100 UNIT/ML 3 ML VIAL SUBCUT ×2 (08:32→11:38)
[2024-09-02] MEDS: predniSONE 20 MG TABLET 40 MG PO (08:32)
[2024-09-02] MEDS: Aspirin 81 MG TAB.CHEW PO (08:32)
[2024-09-02] MEDS: 0.9 % Sodium Chloride Flush 3 ML SYRINGE IVFLUSH (08:33)
--- NOTE | 2024-09-02 09:22 | PM.PNCARD ---
Subjective Subjective Date of Service: 09/02/24 Interval history: Patient feels just about the same. Shortness of breath with activity. Review of Systems Review of Systems Yes all other systems are reviewed and are negative Constitutional: Reports as per HPI and Reports no additional constitutional complaints Eyes: Reports as per HPI and Denies no additional eye complaints Denies system reviewed and no additional complaints, except as documented and Reports as per HPI Cardiovascular: Reports as per HPI, Reports no additional cardiovascular complaints, Denies acrocyanosis, Denies cool extremities, Denies chest pain, Denies leg edema, Denies lightheadedness, Denies palpitations and Reports dyspnea Respiratory: Reports as per HPI, Denies no additional respiratory complaints, Reports cough and Reports dyspnea Gastrointestinal: Reports as per HPI and Denies no additional gastrointestinal complaints Genitourinary: Reports no additional male genitourinary complaints and Reports as per HPI Musculoskeletal: Reports no additional musculoskeletal complaints and Reports as per HPI Skin/Breast: Reports system reviewed and no additional complaints, except as docu Reports system reviewed and no additional complaints, except as documented and Reports as per HPI Psychiatric: Reports no additional psychiatric complaints and Reports as per HPI Endocrine: Reports no additional endocrine complaints, Reports as per HPI and Denies palpitations Hematologic/Lymphatic: Reports no additional hematologic/lymphatic complaints and Reports as per HPI Allergic/Immunologic: Reports no additional allergic/immunologic complaints and Reports as per HPI Physical Exam Vital Signs: Last Vital Signs Temp 97.4 F 09/02/24 07:33 Pulse 83 09/02/24 07:50 Resp 18 09/02/24 07:50 BP 116/81 09/02/24 07:33 Pulse Ox 97 09/02/24 07:33 O2 Del Method Room Air 09/02/24 07:33 BMI result Body Mass Index 40.1 Const General: comfortable and no acute distress Orientation/consciousness: patient oriented x3 HEENT Other: Unremarkable Head: Yes normal to inspection Neck Neck: Yes normal visual inspection Chest Chest palpation & inspection: normal inspection of the chest Resp Auscultation: rhonchi and diminished lung sounds Cardio Palpation: normal PMI Heart sounds: S1 normal heart sound present, S2 normal heart sound present, no gallops, no murmurs and no rubs GI Palpation (GI): Soft to palpation Back/Spine/Pelvis Other: unremarkable Skin General skin exam: no rashes or lesions noted Neuro General: patient oriented x3 Extrem General: Yes normal to inspection Psych Mental Status: mental status grossly normal Objective Labs and Meds 09/01/24 08:05 09/02/24 05:57 Lab results: Laboratory Results - last 24 hr 09/01/24 09/01/24 09/01/24 11:11 13:59 15:58 aPTT Heparin Protocol 61.8 D Sodium Potassium Chloride Carbon Dioxide Anion Gap BUN Creatinine Estim Creat Clear Calc Estimated GFR POC Glucose 229 H 252 H Random Glucose Calcium 09/01/24 09/01/24 09/02/24 19:46 20:34 05:57 aPTT Heparin Protocol 60.0 61.8 Sodium 137 Potassium 4.3 Chloride 102 Carbon Dioxide 27 Anion Gap 12 BUN 14 Creatinine 0.78 Estim Creat Clear Calc 124.9 Estimated GFR > 60 POC Glucose 394 H* Random Glucose 198 H Calcium 9.4 Imaging Radiologist's impression: Impressions Chest CTA 09/01/24 11:54 IMPRESSION: 1. Examination negative for pulmonary embolus. No evidence of acute aortic syndrome. 2. Mild cardiac enlargement. 3. Lungs demonstrate mild small airway thickening bilaterally, in keeping with acute or chronic bronchitis. Lungs otherwise clear. 4. Borderline enlarged precarinal and right hilar lymph nodes, nonspecific and most likely reactive in this setting. 5. Probable small type I hiatus hernia. Electronically signed by: Ayden Hart MD 09/01/2024 12:35 PM EDT RP Progress Note: A&P Assessment and plan (1) Non-ST elevated myocardial infarction (non-STEMI): Status: Acute Plan Troponin levels are 987 and 953. Even in June, they were in the 400s. In the echocardiogram, LVEF is 50-55%. Possible basal inferior hypokinesis. No significant valvular findings. In the chest x-ray, mild cardiomegaly; mildly hyperinflated lungs but no active disease. In the CTA, suggestive of acute/chronic bronchitis. Reactive lymph notes. Overall, recent rib fractures, progressive shortness of breath, no angina, elevated troponins for the last 2 months. Less likely to be primary NSTEMI and more so of demand. Keep on IV heparin drip for 48 hours total. Remains on aspirin. Not listed to be on statins but last LDL is only 71 mg/dL. If indeed any significant CAD, start. We will transfer to [facility] for a diagnostic catheterization. Time Spent With Patient Time: Total time managing care of this patient today ____ minutes. Progress Note: Quality Stroke Does the patient have a stroke diagnosis?: No Procedures Date of Service Date of Service: 09/02/24
--- NOTE | 2024-09-02 10:43 | P.DS_ITS ---
DS: Providers Provider Date of Service: 09/02/24 Date of admission: 08/31/24 13:12 Date of discharge: 09/02/24 Primary care physician: Saad Jimenez PA-C Consults: 08/31/24 13:11 Consult to Cardiology Routine Consulting Provider: [facility] Reason for consultation: NSTEMI Has provider been notified: Yes DS: Diagnosis Discharge Diagnosis (1) Non-ST elevated myocardial infarction (non-STEMI): Status: Acute DS: Summary Hospital Course Hospital Course: History and physical as per admitting provider. This is a 59-year-old male with pertinent history of hypertension, insulin-dependent diabetes mellitus, lower leg edema, INGRIS not compliant with CPAP, mild intermittent asthma not on home oxygen who presents to the emergency department for evaluation of dyspnea. Patient states his symptoms started about 2 months prior to presentation. No history of CHF that he knows of. He has been having dyspnea which is worse with lying flat. Patient is also unable to sleep and is getting up in the middle of the night due to shortness of breath. Patient takes Lasix for his lower leg edema and states that his edema has worsened recently. Is noncompliant with his home medications and occasionally misses his Lasix dose. Denies chest pain. No fever, chills cough. Does not use oxygen at home. No nausea, vomiting, palpitations, abdominal pain, changes in urinary or bowel habits. In the emergency department, patient was given IV diuresis. Troponin found to be elevated and Cardiology was consulted who recommended IV heparin drip. 59-year-old man treated for NSTEMI. Started on IV heparin drip, aspirin, seen evaluated by Cardiology with the recommendation for transfer to [facility] for cardiac catheterization. Patient initially was also treated for heart failure with preserved ejection fraction and switch from IV Lasix to p.o. Lasix. TTE on 08/31/2024 showed EF of 50-55% with possible basal inferior hypokinesis no valvular pathology. He had a mild asthma exacerbation treated with prednisone and albuterol and significantly better today. Plan is to transfer to [facility] for cardiac catheterization. Diabetes mellitus type 2. Continue home medications Obstructive sleep apnea. CPAP at bedtime Hypertension. Continue amlodipine and lisinopril Morbid obesity. Discussed importance of weight management as this may be contributing to worsening of other comorbidities Time Attestation Discharge Coordination Time (in mins): 45 Quality: Safe Use of Opioids Does Pt have an Active Cancer Diagnosis on the Problem List?: No Quality: Stroke Does the patient have a stroke diagnosis?: No Physical Exam Vital Signs: Vital Signs: Last Vital Signs Temp 97.4 F 09/02/24 07:33 Pulse 83 09/02/24 07:50 Resp 18 09/02/24 07:50 BP 116/81 09/02/24 07:33 Pulse Ox 97 09/02/24 07:33 O2 Del Method Room Air 09/02/24 07:33 BMI result Body Mass Index 40.1 Appearing in no acute distress head is normocephalic atraumatic eyes pupils are PERRLA sclera is anicteric mouth throat mucous membranes are intact and moist neck is supple no lymphadenopathy, no JVD noted lung sounds are clear to auscultation heart regular rate rhythm, clear S1, S2 positive bowel sounds, abdomen is soft, nontender neuro patient is alert x3, no focal deficits DS: Data Data Completed and Pending Labs on day of discharge: Laboratory Results - last 24 hr 09/01/24 09/01/24 09/01/24 11:11 13:59 15:58 aPTT Heparin Protocol 61.8 D Sodium Potassium Chloride Carbon Dioxide Anion Gap BUN Creatinine Estim Creat Clear Calc Estimated GFR POC Glucose 229 H 252 H Random Glucose Calcium 09/01/24 09/01/24 09/02/24 19:46 20:34 05:57 aPTT Heparin Protocol 60.0 61.8 Sodium 137 Potassium 4.3 Chloride 102 Carbon Dioxide 27 Anion Gap 12 BUN 14 Creatinine 0.78 Estim Creat Clear Calc 124.9 Estimated GFR > 60 POC Glucose 394 H* Random Glucose 198 H Calcium 9.4 Discharge Plan Discharge Anticipated Discharge Date/Time: 09/02/24 10:40 Patient Disposition: Xfer Acute Care Hospital Discharge Diagnosis: NSTEMI Acute asthma exacerbation Referrals: Saad Jimenez PA-C [Primary Care Provider] - 1 Week Discharge Medications: New aspirin 81 mg Tablet,Chewable 81 mg PO DAILY Qty: 30 0RF heparin(porcine) in 0.45% NaCl 25,000 unit/250 mL Parenteral Solution 25,000 unit continuous IV infusion .Q0M Qty: 6000 0RF Continued insulin glargine [Lantus Solostar U-100 Insulin] 100 unit/mL (3 mL) insulin pen 30 unit subcut DAILY Rx Instructions: Increased dose to 30 units (DME) blood-glucose meter [FreeStyle Wiseman] Kit See Rx Instructions .ROUTE .MEDSUPPLY Qty: 1 0RF Rx Instructions: As directed (DME) lancets [FreeStyle Lancets] 28 gauge misc See Rx Instructions .ROUTE .MEDSUPPLY Qty: 100 3RF Rx Instructions: As directed (DME) FreeStyle Lite Strips Strip See Rx Instructions .ROUTE .MEDSUPPLY Qty: 100 1RF Rx Instructions: As directed albuterol sulfate 90 mcg/actuation HFA aerosol inhaler 2 puff inhalation Q6H 30 Days Qty: 8.5 2RF furosemide 40 mg tablet 40 mg PO DAILY Qty: 40 3RF lisinopril 30 mg tablet 30 mg PO DAILY Qty: 90 1RF (DME) FreeStyle Froylan 3 Sensor Device See Rx Instructions .Route Qty: 1 6RF Rx Instructions: As directed (DME) pen needle, diabetic [BD Ultra-Fine Yian Pen Needle] 32 gauge x 5/32 needle See Rx Instructions .ROUTE .MEDSUPPLY Qty: 50 4RF Rx Instructions: As directed (DME) FreeStyle Froylan 3 Mcalester Misc See Rx Instructions .Route Qty: 1 1RF Rx Instructions: As directed amlodipine 5 mg tablet 5 mg PO DAILY Qty: 90 1RF albuterol sulfate 2.5 mg /3 mL (0.083 %) solution for nebulization 2.5 mg inhalation .QH8 PRN (Reason: shortness of breath or wheezing) Qty: 270 0RF ibuprofen 800 mg tablet 800 mg PO Q8H PRN (Reason: pain) Qty: 30 1RF Discharge Orders: Discharge Order (Routine); Ordered 09/02/24 Ordered By: Trinity Hammond Diet: Advance to usual diet Activity on Discharge: As tolerated Stand Alone Forms: Patient Portal Discharge page Print Language: Welsh Care Plan Goals: Heparin drip Health Concerns: NSTEMI Acute asthma exacerbation Plan of Treatment: Transfer to [facility] for cardiac catheterization Assessment: See discharge summary
[2024-09-02 11:11] LABS: Glucose, Whole Blood 212 mg/dL (60-115)
[2024-09-02 11:17] VITALS: BP 138/88; PULSE 65; RESP 18; TEMP 36.1; O2SAT 99
[2024-09-02 14:59] VITALS: BP 127/83; PULSE 83; RESP 17; TEMP 36.3; O2SAT 97
[2024-09-04 11:55] LABS: Glucose, Whole Blood 264 mg/dL (60-115)
== END 2024-09-02 15:30 | disposition short-term general hospital (02) | DRG 190 ==
LOC: HO.ED 13:08 → HO.EDOVER 13:21 → HO.IMC 19:02
PROVIDERS: Family Medicine; Hospitalist; Admitting Provider Student in an Organized Health Care Education/Training Program; Emergency Provider Emergency Medicine; PCP Physician Assistant; Visit Provider Nurse Practitioner Acute Care
DX: I21.4 Non-ST elevation (NSTEMI) myocardial infarction (principal); I50.31 Acute diastolic (congestive) heart failure; I11.0 Hypertensive heart disease with heart failure; J45.901 Unspecified asthma with (acute) exacerbation; E11.65 Type 2 diabetes mellitus with hyperglycemia; G47.33 Obstructive sleep apnea (adult) (pediatric); E66.01 Morbid (severe) obesity due to excess calories; Z68.41 Body mass index [BMI] 40.0-44.9, adult; Z71.3 Dietary counseling and surveillance; Z20.822 Contact with and (suspected) exposure to COVID-19; Z91.199 Patient's noncompliance with other medical treatment and regimen due to unspecified reason; Z79.4 Long term (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; Z79.899 Other long term (current) drug therapy
CPT/HCPCS: 0241U; 36415; 71046; 71275; 80048; 80053; 82947; 83735; 83880; 84484; 85025; 85027; 85379; 85610; 85730; 93005; 93306; 94640; 99285; J1644; J1940; Q9957; Q9967

== ENCOUNTER → 2024-08-31 09:15 | Outpatient (BNV) | payer BC, SELFPAY | PROVIDERS: Emergency Provider Emergency Medicine; PCP Physician Assistant; Visit Provider Internal Medicine | DX: I42.2 Other hypertrophic cardiomyopathy (principal); I35.8 Other nonrheumatic aortic valve disorders; R94.31 Abnormal electrocardiogram [ECG] [EKG]; R79.89 Other specified abnormal findings of blood chemistry | CPT/HCPCS: 93010; 93306 ==

== ENCOUNTER → 2024-08-31 10:11 | Outpatient (BNV) | payer BC, SELFPAY | PROVIDERS: PCP Physician Assistant; Visit Provider Radiology Diagnostic Radiology | DX: R05.9 Cough, unspecified (principal); R06.02 Shortness of breath | CPT/HCPCS: 71046 ==

== ENCOUNTER 2024-08-31 13:12 | Outpatient (BNV) | payer BC, SELFPAY | END 2024-09-01 11:54 | PROVIDERS: Admitting Provider Student in an Organized Health Care Education/Training Program; Emergency Provider Emergency Medicine; PCP Physician Assistant; Visit Provider Radiology Diagnostic Radiology | DX: R06.00 Dyspnea, unspecified (principal) | CPT/HCPCS: 71275 ==

== ENCOUNTER → 2024-08-31 13:12 | Outpatient (BNV) | payer BC, SELFPAY | PROVIDERS: Admitting Provider Student in an Organized Health Care Education/Training Program; Emergency Provider Emergency Medicine; PCP Physician Assistant; Visit Provider Student in an Organized Health Care Education/Training Program | DX: I21.4 Non-ST elevation (NSTEMI) myocardial infarction (principal) | CPT/HCPCS: 99232; 99239 ==

== ENCOUNTER → 2024-08-31 13:12 | Outpatient (BNV) | payer BC, SELFPAY | PROVIDERS: Admitting Provider Student in an Organized Health Care Education/Training Program; Emergency Provider Emergency Medicine; PCP Physician Assistant; Visit Provider Internal Medicine | DX: I21.4 Non-ST elevation (NSTEMI) myocardial infarction (principal) | CPT/HCPCS: 99223 ==

== ENCOUNTER → 2024-09-04 23:59 | Outpatient (BNV) | payer BC, SELFPAY | PROVIDERS: PCP Physician Assistant; Visit Provider Internal Medicine Cardiovascular Disease | DX: I21.4 Non-ST elevation (NSTEMI) myocardial infarction (principal) | CPT/HCPCS: 93458; 99152 ==

== ENCOUNTER 2024-09-08 13:46 | Outpatient (AMB) | payer BC, SELFPAY ==
[2024-09-08 14:09] VITALS: BP 126/82; PULSE 69; O2SAT 96; BMI 38.8
--- NOTE | 2024-09-08 14:09 | MHC.PC.OV ---
Vital Signs 09/08/24 14:09 Height 5 ft 8 in Weight 255 lb 6 oz BMI 38.8 BP 126/82 Blood Pressure Location Lt brachial Position Sitting Pulse 69 Pulse Source Pulse Oximeter Pulse Oximetry (%) 96 Oxygen Delivery Method Room Air Intake Visit Reasons: [facility] 09/04 Cardiac procedure Caser Up Required: No Accompanied by: Self / Same As Patient Allergies oxycodone Allergy (Intermediate, Verified 09/08/24 14:09) Palpitations metformin Adverse Reaction (Intermediate, Verified 09/08/24 14:09) Chills Tobacco use date assessed: 09/08/24 Dental Screening Dental Screen Date: 09/08/24 Did you have a dental visit in the last 12 months?: No Did you have a dental problem in the last 6 months where you did not have access to dental care?: No Was dental information given to patient?: No HPI HPI Comments History of Present Illness Details 59 y/o male patient who presents to the clinic for HDF. Pmhx significant for hypertension, insulin-dependent diabetes mellitus, lower leg edema, INGRIS not compliant with CPAP, mild intermittent asthma not on home oxygen. He [place] [facility] [place] for Dyspnea.Was treated for NSTEMI. In the hospital he was Started on IV heparin drip, and Aspirin. Cardiology evaluated patient in the hospital with the recommendation for transfer to [facility] for cardiac catheterization. Pt was admitted at [facility] 09/02 - 09/04 for Cardiac Cath procedure. Cath showed no significant Coronary Artery disease. He has a F/U Appointment with Cardiology on 09/18/24. [facility] Medical History Type 2 diabetes mellitus with hyperglycemia HTN (hypertension) Class 3 obesity NIGRIS (obstructive sleep apnea) Colon cancer screening Mild intermittent asthma in adult without complication Surgical History History of knee surgery Family History Brother Myocardial infarction, Onset Age: 40 Father Social History Household Members: Spouse Housing: House Do you presently have visiting nurse or other home services: No Alcohol intake: current Alcohol intake frequency: holidays/special occasions only Alcohol type: beer Patient Tobacco Use Status: Never used Tobacco e-Cigarette/Vaping Use: Never Used Second Hand Smoke Exposure: Yes service: No Current occupational 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 1. Little interest or pleasure in doing things: not at all 2. Feeling down, depressed, or hopeless: not at all 3. Trouble falling or staying asleep, or sleeping too much: not at all 4. Feeling tired or having little energy: not at all 5. Poor appetite or overeating: not at all 6. Feeling bad about yourself - or that you are a failure or have let yourself or your family down: not at all 7. Trouble concentrating on things, such as reading the newspaper or watching television: not at all 8. Moving or speaking so slowly that other people could have noticed. Or the opposite - being so fidgety or restless that you have been moving around a lot more than usual: not at all 9. Thoughts that you would be better off or of hurting yourself in some way: not at all Total score: 0 Depression Screening Interpretation: Negative Depression Screening Done: Yes 48091 - PHQ-9 Billing: Yes Source: Developed by Drs. Silvano Smith, Mallory Miramontes, Robert Walker and colleagues, with an educational evelyn from [employer]. Thrive Questionnaire Date Thrive assessed: 09/08/24 I am a: Patient What is your living situation today?: I have a steady place to live Within the past 12 months, did the food you bought not last and you didn't have the money to get more?: Never true Within the past 12 months, did you worry whether your food would run out before you got money to buy more?: Never true Do you have trouble paying for medicines?: No Do you have trouble getting transportation to medical appointments?: No Do you have trouble paying your heating and electricity bill?: No Do you have trouble taking care of your child, family member or friend?: No Do you have trouble with day-to-day activities such as bathing, preparing meals, shopping, managing finances, etc.?: No Are you currently unemployed and looking for a job?: No Are you interested in more education?: No Please select the resources that you would like help with: None Currently or been in a relationship where the following occur: No concerns reported THRIVE Score: 0 AUDIT C Alcohol Use Questionnaire (AUDIT-C) 1. How often do you have a drink containing alcohol?: 2-3 times a week 2. How many drinks containing alcohol do you have on a typical day when you are drinking?: 3 or 4 3. How often do you have six or more drinks on one occasion?: Never Total Score: 4 Score Reviewed/Action Taken: Yes HARSHA-7 AMB Questionnaire HARSHA-7 Date HARSHA - 7 assessed: 09/08/24 Feeling nervous, anxious, or on edge: 0 = Not at all Not being able to stop or control worryin = Not at all Worrying too much about different things: 0 = Not at all Trouble relaxin = Not at all Being so restless that it is hard to sit still: 0 = Not at all Becoming easily annoyed or irritable: 0 = Not at all Feeling afraid as if something awful might happen: 0 = Not at all Total HARSHA-7 score (0-4 normal; 5-9 mild; 10-14 moderate; 15-21 severe): 0 Source: Developed by Drs. Silvano Smith, Mallory Miramontes, Robert Walker and colleagues, with an educational evelyn from [employer]. Review of Systems Const All systems reviewed & are unremarkable except as noted in HPI and below Physical exam (Primary Care) Vital Signs: Last Vital Signs Pulse 69 09/08/24 14:09 BP 126/82 09/08/24 14:09 Pulse Ox 96 09/08/24 14:09 Oxygen Delivery Method Room Air 09/08/24 14:09 BMI result Body Mass Index 38.8 Tobacco/Smoking Status: Tobacco use Status Tobacco use date assessed 09/08/24 09/08/24 14:14 Patient Tobacco Use Status Never used Tobacco 09/08/24 14:14 e-Cigarette/Vaping Use Never Used 09/08/24 14:14 PHQ-9: PHQ-9 Score PHQ-9: Total score 0 09/08/24 14:14 Depression Screening Interpretation: Negative Thrive Assessment: Date of Thrive Assessment Date Thrive assessed 09/08/24 09/08/24 14:14 Currently or been in a relationship where the following occur: No concerns reported Const General: cooperative and no acute distress Nutritional Appearance: obese Orientation/consciousness: patient oriented x3 Resp Effort & Inspection: normal respiratory effort and able to speak in complete sentences Auscultation: no crackles, no rales, no rhonchi and wheezes inspiratory wheezes Cardio Heart sounds: S1 normal heart sound present and S2 normal heart sound present Neuro General: patient oriented x3 Coding Level of Care Code Est Pt Level 4 (52959) Diagnoses Non-ST elevated myocardial infarction (non-STEMI) I21.4 Acute on chronic congestive heart failure, unspecified heart failure type I50.9 Heart failure type: unspecified Additional Codes PHQ-9 - 16673 - PHQ-9 Billing: Yes ([id number]) Time Spent (min) 20 Assessment & Plan Assessment & Plan (1) Non-ST elevated myocardial infarction (non-STEMI): Code(s): I21.4 - Non-ST elevation (NSTEMI) myocardial infarction Category: Medical Plan: Managed by Cardiology. Appointment on 09/18/24. (2) CHF exacerbation: Code(s): I50.9 - Heart failure, unspecified Category: Medical Qualifiers: Heart failure type: unspecified Qualified Code(s): I50.9 - Heart failure, unspecified Plan: Managed by Cardiology. Appointment on 09/18/24. Medications: New prednisone 40 mg (2 x 20 mg) PO DAILY 5 days 10 tabs 0RF I50.9 - Heart failure, unspecified
== END 2024-09-08 14:51 | disposition home or self-care (01) ==
LOC: HO.HMCH 13:46
PROVIDERS: PCP Physician Assistant; Visit Provider Nurse Practitioner Family
DX: I21.4 Non-ST elevation (NSTEMI) myocardial infarction (principal); I50.9 Heart failure, unspecified

== ENCOUNTER → 2024-09-08 13:46 | Outpatient (BNVA) | payer BC, SELFPAY | PROVIDERS: PCP Physician Assistant; Visit Provider Nurse Practitioner Family | DX: I21.4 Non-ST elevation (NSTEMI) myocardial infarction (principal); I11.0 Hypertensive heart disease with heart failure; I50.9 Heart failure, unspecified; E11.9 Type 2 diabetes mellitus without complications; G47.33 Obstructive sleep apnea (adult) (pediatric); J45.20 Mild intermittent asthma, uncomplicated; Z79.4 Long term (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 | CPT/HCPCS: 96127 ==

== ENCOUNTER 2024-09-18 15:16 | Outpatient (AMB) | payer BC, SELFPAY ==
[2024-09-18 15:21] VITALS: BP 138/80; PULSE 57; BMI 39.8
--- NOTE | 2024-09-18 15:21 | A.OFFVIS_ITS ---
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 Allergies oxycodone Allergy (Intermediate, Verified 09/18/24 15:23) Palpitations metformin Adverse Reaction (Intermediate, Verified 09/18/24 15:23) Chills Medication List - Last Reconciled 09/18/24 by SHA Palomo albuterol sulfate 90 mcg/actuation 2 puffs inhalation Q6H 30 days albuterol sulfate 2.5 mg (3 mL) inhalation .QH8 PRN amlodipine 5 mg PO DAILY aspirin 81 mg PO DAILY blood sugar diagnostic (FreeStyle Lite Strips) As directed blood-glucose meter (FreeStyle [place] kit) As directed blood-glucose meter,continuous (FreeStyle Froylan 3 [place]) As directed blood-glucose sensor (FreeStyle Froylan 3 Sensor device) As directed furosemide 40 mg PO DAILY ibuprofen 800 mg PO Q8H PRN insulin glargine (Lantus Solostar U-100 Insulin) 30 units subcut DAILY lancets (FreeStyle Lancets) As directed lisinopril 30 mg PO DAILY pen needle, diabetic (BD Ultra-Fine Yina Pen Needle) As directed HPI HPI 2wk f/u s/p Cardiac cath: Details: Osman is a 59-year-old male with past medical history of morbid obesity, hypertension, diabetes, sleep apnea with no CPAP use, recent fall with rib fractures, 06/2024, who was admitted to [facility] earlier this month with shortness of breath. He was found to have elevated troponin levels as high as 987. An echocardiogram showed EF 50-55% with possible basal inferior hypokinesis. He was sent for cardiac catheterization showing no CAD. Today he reports he has been doing well since his hospital discharge. He reports no concerning symptoms. He no longer has shortness of breath. No chest discomfort at rest or with activity. No heart palpitations, lightheadedness, presyncope, syncope. He reports good activity tolerance and compliance with his meds. He says he has not used a CPAP mask for many years. He had difficulty wearing it and says the insurance [employer] stopped paying for it. He works for the [employer] in the [employer]. [facility] Medical History Type 2 diabetes mellitus with hyperglycemia HTN (hypertension) Class 3 obesity INGRIS (obstructive sleep apnea) Colon cancer screening Mild intermittent asthma in adult without complication Surgical History History of cardiac cath History of knee surgery Family History Brother Myocardial infarction, Onset Age: 40 Father Social History Household Members: Spouse Housing: House Do you presently have visiting nurse or other home services: No Alcohol intake: current Alcohol intake frequency: holidays/special occasions only Alcohol type: beer Patient Tobacco Use Status: Never used Tobacco e-Cigarette/Vaping Use: Never Used Second Hand Smoke Exposure: Yes service: No Current occupational 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 Cognitive needs: No Hearing needs: No Vision needs: Yes (reading glasses) Review of Systems Const All systems reviewed & are unremarkable except as noted in HPI and below ENT Denies dizziness Card Denies chest pain, Denies chest pain at rest, Denies chest pain with activity, Denies rapid heart rate, Denies pedal edema, Denies edema, Denies leg edema, Denies lightheadedness, Denies palpitations, Denies dyspnea, Denies dyspnea on exertion and Denies orthopnea Resp Denies cough, Denies dyspnea and Denies dyspnea on exertion GI Denies hematochezia and Denies change in stool character Musc Denies abnormal gait, Denies limited range of motion, Denies muscle cramps, Denies muscle weakness, Denies numbness, Denies radiating pain into limb, Denies stiffness and Denies tingling Neuro Denies abnormal gait, Denies dizziness, Denies numbness and Denies tingling Endo Denies palpitations Physical Exam Vital Signs: Last Vital Signs Pulse 57 09/18/24 15:21 BP 138/80 09/18/24 15:21 BMI result Body Mass Index 39.8 Const General: cooperative, healthy appearing, comfortable and no acute distress Orientation/consciousness: patient oriented x3 Neck Neck: Yes normal visual inspection Resp Effort & Inspection: normal respiratory effort Auscultation: clear to auscultation bilaterally, no crackles, no rales, no rhonchi and no wheezes Cardio Jugular venous distension: no JVD Rate: regular rate Rhythm: regular rhythm Heart sounds: S1 normal heart sound present, S2 normal heart sound present, no gallops, no murmurs and no rubs Neuro General: patient oriented x3 Extrem General: Yes normal to inspection, No no pedal edema and No calf tenderness Psych Appearance: grossly normal Mental Status: mental status grossly normal Speech and movement: Normal speech and movement present Assessment & Plan Assessment & Plan (1) Non-ST elevated myocardial infarction (non-STEMI): Code(s): I21.4 - Non-ST elevation (NSTEMI) myocardial infarction Category: Medical Plan: Recent [facility] admission with shortness of breath and found to have elevated troponins, most likely related to secondary type NSTEMI. Echocardiogram showed EF 50-55%, possible basal inferior hypokinesis. A chest CTA showed no PE. His BNP was mildly elevated at 126. He was sent to [facility] for cardiac catheterization which showed normal coronary arteries. He was sent home on his usual home medications including aspirin, amlodipine, lisinopril and Lasix 40 mg daily. He no longer has any concerning symptoms. Unclear etiology for his elevated troponins. His chest CT had shown evidence of bronchitis. This may have contributed as well as his fall with rib fractures, June 2024. cardiology follow-up 4 months, sooner if needed (2) INGRIS (obstructive sleep apnea): Code(s): G47.33 - Obstructive sleep apnea (adult) (pediatric) Category: Medical Plan: echo shows EF is low normal. He does have a history of sleep apnea has not had treatment. In the past he tried a CPAP mask but states he was unable to use it. At this time will check a home sleep study to assess the severity of his apnea. (3) HTN (hypertension): Code(s): I10 - Essential (primary) hypertension Category: Medical Qualifiers: Hypertension type: essential hypertension Qualified Code(s): I10 - Essential (primary) hypertension Plan: well controlled at this time. No med changes made. Continue amlodipine, Lasix and lisinopril (4) Obesity: Code(s): E66.9 - Obesity, unspecified Category: Medical Qualifiers: Obesity type: due to excess calories Obesity classification: adult class 3 (BMI >= 40) Serious obesity comorbidity presence: with serious comorbidity Body mass index: BMI 40.0-44.9 Qualified Code(s): E66.01 - Morbid (severe) obesity due to excess calories; Z68.41 - Body mass index [BMI]40.0- 44.9, adult (5) Hospital discharge follow-up: Code(s): Z09 - Encounter for follow-up examination after completed treatment for conditions other than malignant neoplasm Category: Medical Plan: discharge summary reviewed Plan time spent on chart review, documentation, interview and assessment Orders: Orders RT home sleep study Today G47.33 - Obstructive sleep apnea (adult) (pediatric) Coding Level of Care Code Est Pt Level 4 (70938) Complex EM visit Add On G2211 Diagnoses Non-ST elevated myocardial infarction (non-STEMI) I21.4 INGRIS (obstructive sleep apnea) G47.33 Essential hypertension I10 Hypertension type: essential hypertension Class 3 severe obesity due to excess calories with serious comorbidity and body mass index (BMI) of 40.0 to 44.9 in adult E66.01; Z68.41 Obesity type: due to excess calories Obesity classification: adult class 3 (BMI >= 40) Serious obesity comorbidity presence: with serious comorbidity Body mass index: BMI 40.0-44.9 Hospital discharge follow-up Z09 Time Spent (min) 30
== END 2024-09-18 15:40 | disposition home or self-care (01) ==
LOC: HO.HCS 15:16
PROVIDERS: PCP Physician Assistant; Visit Provider Nurse Practitioner Family
DX: I21.4 Non-ST elevation (NSTEMI) myocardial infarction (principal); G47.33 Obstructive sleep apnea (adult) (pediatric); I10 Essential (primary) hypertension; E66.01 Morbid (severe) obesity due to excess calories; Z68.41 Body mass index [BMI] 40.0-44.9, adult; Z09 Encounter for follow-up examination after completed treatment for conditions other than malignant neoplasm
CPT/HCPCS: 99214

== ENCOUNTER 2024-09-26 15:20 | Outpatient (AMB) | payer BC, SELFPAY ==
--- NOTE | 2024-09-26 15:25 | MHC.PC.OV ---
Vital Signs 09/26/24 15:32 Height 5 ft 8 in Weight 257 lb 4 oz BMI 39.1 BP 132/90 H Blood Pressure Location Lt brachial Position Sitting Pulse 67 Pulse Source Pulse Oximeter Temp 97.5 F Temp Source Temporal Artery Scan Pulse Oximetry (%) 100 Oxygen Delivery Method Room Air Intake Visit Reasons: f/u DMII Security Guard Required: No Accompanied by: Self / Same As Patient Allergies oxycodone Allergy (Intermediate, Verified 09/26/24 15:36) Palpitations metformin Adverse Reaction (Intermediate, Verified 09/26/24 15:36) Chills Medication List - Last Reconciled 09/26/24 by Saad Jimenez PA-C albuterol sulfate 90 mcg/actuation 2 puffs inhalation Q6H 30 days albuterol sulfate 2.5 mg (3 mL) inhalation .QH8 PRN amlodipine 5 mg PO DAILY aspirin 81 mg PO DAILY blood sugar diagnostic (FreeStyle Lite Strips) As directed blood-glucose meter (FreeStyle [place] kit) As directed blood-glucose sensor (FreeStyle Froylan 3 Sensor device) As directed blood-glucose,spot worker,cont (FreeStyle Froylan 3 [place]) As directed furosemide 40 mg PO DAILY ibuprofen 800 mg PO Q8H PRN insulin glargine (Lantus Solostar U-100 Insulin) 30 units subcut DAILY lancets (FreeStyle Lancets) As directed lisinopril 30 mg PO DAILY pen needle, diabetic (BD Ultra-Fine Yina Pen Needle) As directed Tobacco use date assessed: 09/08/24 Dental Screening Dental Screen Date: 09/08/24 HPI f/u DMII HPI Details Patient is a 59 year male here today for a follow-up visit . Patient has a past medical history significant for hypertension, type 2 diabetes, obesity, mild? intermittent asthma. Patient recently admitted to [facility] with acute shortness of breath. He was found to have very elevated troponins at 987. Echocardiogram showed EF of 50-55% with possible basal inferior hypokinesis. He was sent to [facility] for cardiac catheterization though there was no coronary artery disease noted. Note did suffer a fall in June to which he broke a few ribs and then later had upper respiratory infection that was treated with prednisone .. ?hypertension;? blood pressure today in office slightly elevated. Has not been particularly monitoring his blood pressure home.. Patient continues on lisinopril 30 mg and amlodipine Unfortunately gained weight since last office visit. he denies any chest pain, shortness of breath, headaches or vision issues.? He reports taking? lisinopril daily. PLAN: Will consider increasing dose of amlodipine or lisinopril for better blood pressure control. ? .. Obesity:? Has lost some weight since last office visit likely due to uncontrolled diabetes..? He does report having a family history of obesity.? He does report having a fairly decent diet. .. Type? 2 diabetes: Patient's type 2 diabetes suboptimally controlled, today's A1c at 10.7. He feels his sugars were elevated recently due to being on prednisone. He reports he is consistent with his Lantus. We did discuss the possibility of starting a GLP 1 to help him with glycemic control and weight loss and he is considering. He does admit to some dietary indiscretion would like to work extensively on dietary modification. .. Asthma: Has been fairly well controlled with p.r.n. use of his albuterol inhaler. Does not regularly uses Flovent. He reports since being treated for his upper respiratory infection with prednisone his breathing has been much better. REPLACED BY [facility] Medical History Type 2 diabetes mellitus with hyperglycemia HTN (hypertension) Class 3 obesity INGRIS (obstructive sleep apnea) Colon cancer screening Mild intermittent asthma in adult without complication Surgical History History of cardiac cath History of knee surgery Family History Brother Myocardial infarction, Onset Age: 40 Father Social History Household Members: Spouse Housing: House Do you presently have visiting nurse or other home services: No Alcohol intake: current Alcohol intake frequency: holidays/special occasions only Alcohol type: beer Patient Tobacco Use Status: Never used Tobacco e-Cigarette/Vaping Use: Never Used Second Hand Smoke Exposure: Yes service: No Current occupational 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 Silvano Smith, Mallory Miramontes, Robert Walker and colleagues, with an educational evelyn from [employer]. Review of Systems Const Denies headache(s) Eyes Denies loss of vision ENT Denies vertigo, Denies dizziness, Denies headache(s) and Denies sore throat Card Denies chest pain, Denies leg edema and Denies lightheadedness Resp Denies cough, Denies hemoptysis and Denies wheezing GI Denies abdominal pain, Denies melena, Denies constipation, Denies diarrhea and Denies vomiting Denies dysuria, Denies urinary frequency and Denies urinary urgency Musc Denies arthralgias, Denies joint swelling, Denies numbness and Denies tingling Neuro Denies Abnormal speech present, Denies behavioral changes, Denies vertigo, Denies dizziness, Denies headache(s), Denies loss of vision, Denies memory loss, Denies numbness and Denies tingling Psych Denies anxiety, Denies behavioral changes, Denies depression, Denies memory loss and Denies panic attacks Steven/Lymph Denies easy bleeding and Denies easy bruising Aller/Immun Denies wheezing Physical exam (Primary Care) Vital Signs: Last Vital Signs Temp 97.5 F 09/26/24 15:32 Pulse 67 09/26/24 15:32 BP 132/90 H 09/26/24 15:32 Pulse Ox 100 09/26/24 15:32 Oxygen Delivery Method Room Air 09/26/24 15:32 Care Plan Goal for BP management: Will continue current management for his blood pressure Next steps: Work on low-sodium diet and weight reduction, considering amlodipine dose increased. BMI result Body Mass Index 39.1 BMI Assessment/Plan discussion: High BMI High, discussed plan: lifestyle, weight reduction, dietary and physical activity Tobacco/Smoking Status: Tobacco use Status Tobacco use date assessed 09/08/24 09/26/24 15:25 Patient Tobacco Use Status Never used Tobacco 09/26/24 15:25 e-Cigarette/Vaping Use Never Used 09/26/24 15:25 Thrive Assessment: Date of Thrive Assessment Date Thrive assessed 09/08/24 09/26/24 15:25 Const General: healthy appearing, no acute distress, alert and awake Nutritional Appearance: well nourished Orientation/consciousness: oriented to person, oriented to place and oriented to time HENMT Ears: TM's normal bilaterally General nose exam: Normal nasal mucous membranes and turbinates present Eyes Conjunctivae: conjunctivae normal Sclerae: sclerae normal Pupils: Equal, round and reactive pupils present Neck Neck: Yes no lymphadenopathy and Yes no JVD Thyroid: Thyroid normal Carotids: no bruits Resp Effort & Inspection: normal respiratory effort and not tachypneic Auscultation: no crackles, no rales, no rhonchi and no wheezes Cardio Rate: regular rate Rhythm: regular rhythm Heart sounds: no murmurs and normal S1 and S2 GI Palpation (GI): Soft to palpation, nontender, no hepatomegaly and no splenomegaly Auscultation: normal bowel sounds Skin General skin exam: no rashes or lesions noted and dry skin Neuro General: oriented to person, oriented to place and oriented to time Cranial nerves: Yes Equal, round and reactive pupils present Speech: No Abnormal speech present Gait exam (Neuro): Normal gait present Motor exam (neuro): no tremor noted Extrem Right upper extremity: full ROM Left upper extremity: full ROM Right lower extremity: full ROM; no edema Left lower extremity: full ROM; no edema Psych Mental Status: mental status grossly normal Speech and movement: Normal speech and movement present Affect: normal affect Attitude: cooperative Thought process: Normal thought process present Results AMB Hemoglobin A1c AMB Hemoglobin A1c 10.7 % Last Edit by CINDY Andrews on 09/26/24 15:40 Coding Level of Care Code Est Pt Level 4 (97572) Diagnoses Type 2 diabetes mellitus with hyperglycemia, with long-term current use of insulin E11.65; Z79.4 Diabetes mellitus intermediate teacher insulin use: with penitentiary use Non-ST elevated myocardial infarction (non-STEMI) I21.4 Essential hypertension I10 Hypertension type: essential hypertension Hypertriglyceridemia E78.1 Class 1 obesity E66.811 Assessment & Plan Assessment & Plan (1) Type 2 diabetes mellitus with hyperglycemia: Code(s): E11.65 - Type 2 diabetes mellitus with hyperglycemia Category: Medical Qualifiers: Diabetes mellitus intermediate teacher insulin use: with intermediate teacher use Qualified Code(s): E11.65 - Type 2 diabetes mellitus with hyperglycemia; Z79.4 - superintendent container terminal (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 Plan: Patient's type 2 diabetes suboptimally controlled with current management. (2) Non-ST elevated myocardial infarction (non-STEMI): Code(s): I21.4 - Non-ST elevation (NSTEMI) myocardial infarction Category: Medical Plan: As per HPI patient did experience an NSTEMI of unclear etiology. Did undergo cardiac catheterizations though had normal coronary arteries. Has followed up with Cardiology and will be sent for obstructive sleep apnea test. (3) HTN (hypertension): Code(s): I10 - Essential (primary) hypertension Category: Medical Qualifiers: Hypertension type: essential hypertension Qualified Code(s): I10 - Essential (primary) hypertension Plan: Patient's blood pressure slightly elevated today in office. Will consider increasing dose of amlodipine though will like to work on lifestyle and dietary modifications. Goal blood pressures to be below 140/90 (4) Hypertriglyceridemia: Code(s): E78.1 - Pure hyperglyceridemia Category: Medical Plan: Will recheck a fasting lipid panel with goal LDL to be below 100 due to his diabetes. Will consider starting cholesterol medication if LDL above 100. (5) Class 1 obesity: Code(s): E66.811 - Obesity, class 1 Category: Medical Plan: Patient does understand his BMI is over 35 and will we working on being more physically active and adapting to better eating habits to reduce his weight Orders: Orders AMB Hemoglobin A1c Today E11.65 - Type 2 diabetes mellitus with hyperglycemia, Z79.4 - superintendent container terminal (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 Lipid Panel Today E78.1 - Pure hyperglyceridemia Comprehensive [place]. Panel Fast Today E11.65 - Type 2 diabetes mellitus with hyperglycemia, Z79.4 - superintendent container terminal (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 Complete Blood Count no Diff Today E11.65 - Type 2 diabetes mellitus with hyperglycemia, Z79.4 - superintendent container terminal (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 Medications: Changed From pen needle, diabetic (BD Ultra-Fine Yina Pen Needle) As directed 50 ea 4RF E11.65 - Type 2 diabetes mellitus with hyperglycemia, Z79.4 - retirement (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 To pen needle, diabetic As directed 50 ea 4RF E11.65 - Type 2 diabetes mellitus with hyperglycemia, Z79.4 - retirement (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 From albuterol sulfate 2.5 mg (3 mL) inhalation .QH8 PRN 270 mL 0RF shortness of breath or wheezing J45.20 - Mild intermittent asthma, uncomplicated To albuterol sulfate 2.5 mg (3 mL) inhalation .QH8 30 days PRN 270 mL 3RF shortness of breath or wheezing J45.20 - Mild intermittent asthma, uncomplicated Refilled albuterol sulfate 90 mcg/actuation 2 puffs inhalation Q6H 30 days 8.5 grams 2RF J45.20 - Mild intermittent asthma, uncomplicated lisinopril 30 mg PO DAILY 90 tabs 1RF I10 - Essential (primary) hypertension albuterol sulfate 2.5 mg (3 mL) inhalation .QH8 PRN 270 mL 0RF shortness of breath or wheezing J45.20 - Mild intermittent asthma, uncomplicated amlodipine 5 mg PO DAILY 90 tabs 1RF I10 - Essential (primary) hypertension furosemide 40 mg PO DAILY 40 tabs 3RF 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
[2024-09-26 15:32] VITALS: BP 132/90; PULSE 67; TEMP 36.4; O2SAT 100; BMI 39.1
== END 2024-09-26 16:01 | disposition home or self-care (01) ==
LOC: HO.HMCH 15:20
PROVIDERS: PCP Physician Assistant; Visit Provider Physician Assistant
DX: E11.65 Type 2 diabetes mellitus with hyperglycemia (principal); Z79.4 Long term (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; E66.811 Obesity, class 1; Z68.39 Body mass index [BMI] 39.0-39.9, adult; I25.2 Old myocardial infarction; I10 Essential (primary) hypertension; E78.1 Pure hyperglyceridemia

== ENCOUNTER → 2024-09-26 15:20 | Outpatient (BNVA) | payer BC, SELFPAY | PROVIDERS: PCP Physician Assistant; Visit Provider Physician Assistant | DX: E11.65 Type 2 diabetes mellitus with hyperglycemia (principal); I21.4 Non-ST elevation (NSTEMI) myocardial infarction; I10 Essential (primary) hypertension; E78.1 Pure hyperglyceridemia; E66.811 Obesity, class 1; Z68.39 Body mass index [BMI] 39.0-39.9, adult; J45.909 Unspecified asthma, uncomplicated; Z79.4 Long term (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 | CPT/HCPCS: 83036 ==

== ENCOUNTER → 2024-12-12 12:35 | Outpatient (REF) | payer BC, SELFPAY | LOC: HO.SL 12:35 | PROVIDERS: PCP Physician Assistant; Visit Provider Nurse Practitioner Family | DX: G47.33 Obstructive sleep apnea (adult) (pediatric) (principal) | CPT/HCPCS: 95806 ==

== ENCOUNTER → 2024-12-12 13:14 | Outpatient (BNV) | payer BC, SELFPAY | PROVIDERS: PCP Physician Assistant; Visit Provider Internal Medicine | DX: G47.33 Obstructive sleep apnea (adult) (pediatric) (principal) | CPT/HCPCS: 95806 ==

== ENCOUNTER 2024-12-20 06:03 | Outpatient (REF) | payer BC, SELFPAY ==
[2024-12-20 07:22] LABS: Hematocrit 44.3 % (42.0-52.0); Hemoglobin 15.6 g/dl (14.0-18.0); Mean Corpuscular HGB Conc 35.2 g/dl (31.0-36.0); Mean Corpuscular Hemoglobin 29.5 pg (27.0-33.0); Mean Corpuscular Volume 83.9 fL (80.0-98.0); NRBC Abs Auto 0.000 X10*3/uL (0.0-0.012); NRBC Pct Auto 0.0 /100WBC (0.0-0.2); Platelet Count 180 X10*3/uL (160-400); Red Blood Count 5.28 X10*6/uL (4.60-5.80); White Blood Count 7.0 X10*3/uL (4.8-10.8)
[2024-12-20 07:42] LABS: Alanine Aminotransferase 24 U/L (0-40); Albumin Level 3.8 g/dL (3.5-5.0); Alkaline Phosphatase 73 U/L (39-117); Anion Gap 10 (12-20); Aspartate Amino Transferase 25 U/L (5-37); Blood Urea Nitrogen 15 mg/dL (9-16); Calcium 9.1 mg/dL (8.4-10.2); Carbon Dioxide 30 mmol/L (22-29); Chloride 99 mmol/L (96-108); Cholesterol 155 mg/dL (<200); Estimated Glomerular Filt Rate > 60; HDL Cholesterol 46 mg/dL (>40); Potassium 4.4 mmol/L (3.3-5.1); Sodium 135 mmol/L (135-145); Total Protein 6.6 g/dL (6.5-8.0); Triglycerides 116 mg/dL (<150)
== END 2024-12-20 06:04 | disposition home or self-care (01) ==
LOC: HO.LAB 06:03
PROVIDERS: PCP Physician Assistant; Visit Provider Physician Assistant
DX: Z00.00 Encounter for general adult medical examination without abnormal findings (principal); E11.65 Type 2 diabetes mellitus with hyperglycemia; E78.1 Pure hyperglyceridemia; E66.811 Obesity, class 1; Z68.39 Body mass index [BMI] 39.0-39.9, adult; I11.0 Hypertensive heart disease with heart failure; I50.32 Chronic diastolic (congestive) heart failure; J45.20 Mild intermittent asthma, uncomplicated; Z79.4 Long term (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; Z79.899 Other long term (current) drug therapy; Z13.31 Encounter for screening for depression
CPT/HCPCS: 36415; 80053; 80061; 83036; 85027; 96127

== ENCOUNTER 2024-12-20 15:27 | Outpatient (AMB) | payer BC, SELFPAY ==
--- NOTE | 2024-12-20 15:31 | MHC.PC.OV ---
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 Required: No Accompanied by: Self / Same As Patient Allergies oxycodone Allergy (Intermediate, Verified 12/20/24 15:36) Palpitations metformin Adverse Reaction (Intermediate, Verified 12/20/24 15:36) Chills Medication List - Last Reconciled 12/20/24 by Saad Jimenez PA-C albuterol sulfate 90 mcg/actuation 2 puffs inhalation Q6H 30 days albuterol sulfate 2.5 mg (3 mL) inhalation .QH8 PRN 30 days amlodipine 5 mg PO DAILY aspirin 81 mg PO DAILY blood sugar diagnostic (FreeStyle Lite Strips) As directed blood-glucose meter (FreeStyle Sealy kit) As directed blood-glucose sensor (FreeStyle Froylan 3 Sensor device) As directed blood-glucose,signal operator linguist,cont (FreeStyle Froylan 3 [place]) As directed furosemide 40 mg PO DAILY ibuprofen 800 mg PO Q8H PRN insulin glargine (Lantus Solostar U-100 Insulin) 30 units (0.3 mL) subcut DAILY lancets (FreeStyle Lancets) As directed lisinopril 30 mg PO DAILY pen needle, diabetic As directed Tobacco use date assessed: 12/20/24 Dental Screening Dental Screen Date: 12/20/24 [facility] Annual Exam HPI Details Patient is a 59 year male here today for a routine annual physical . Patient has a past medical history significant for hypertension, type 2 diabetes, obesity, mild? intermittent asthma. CHF: Well compensated with 40 mg Lasix daily. He was found to have very elevated troponins at 987. Echocardiogram showed EF of 50-55% with possible basal inferior hypokinesis. He was sent to [facility] for cardiac catheterization though there was no coronary artery disease noted. .. ?hypertension;? blood pressure acceptable today in office.. Has not been particularly monitoring his blood pressure home.. Patient continues on lisinopril 30 mg and amlodipine he denies any chest pain, shortness of breath, headaches or vision issues.? He reports taking? lisinopril daily. ? .. Obesity:? Has lost some weight since last office visit likely due to uncontrolled diabetes..? He does report having a family history of obesity.? He does report having a fairly decent diet. .. Type? 2 diabetes: Patient's type 2 diabetes not controlled, A1c above 11. He has not do consistent with using his Lantus 30 units daily He does admit to some dietary indiscretion would like to work extensively on dietary modification. PLAN: Will increase his Lantus to 38 units daily, will add on Jardiance 25 mg for better glycemic control. .. Asthma: Has been fairly well controlled with p.r.n. use of his albuterol inhaler. Does not regularly uses Flovent. He reports since being treated for his upper respiratory infection with prednisone his breathing has been much better. Colon cancer screening: cologaurd done in 2023 - negative .. Vaccines : up-to-date with tetanus vaccine, up-to-date with COVID vaccine( j an j), Need PCV-20 PFSH Medical History Type 2 diabetes mellitus with hyperglycemia HTN (hypertension) Class 3 obesity INGRIS (obstructive sleep apnea) Colon cancer screening Mild intermittent asthma in adult without complication Surgical History History of cardiac cath History of knee surgery Family History Brother Myocardial infarction, Onset Age: 40 Father Social History Household Members: Spouse Housing: House Do you presently have visiting nurse or other home services: No Alcohol intake: current Alcohol intake frequency: holidays/special occasions only Alcohol type: beer Patient Tobacco Use Status: Never used Tobacco e-Cigarette/Vaping Use: Never Used Second Hand Smoke Exposure: Yes service: No Current occupational 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 1. Little interest or pleasure in doing things: not at all 2. Feeling down, depressed, or hopeless: not at all 3. Trouble falling or staying asleep, or sleeping too much: not at all 4. Feeling tired or having little energy: not at all 5. Poor appetite or overeating: not at all 6. Feeling bad about yourself - or that you are a failure or have let yourself or your family down: not at all 7. Trouble concentrating on things, such as reading the newspaper or watching television: not at all 8. Moving or speaking so slowly that other people could have noticed. Or the opposite - being so fidgety or restless that you have been moving around a lot more than usual: not at all 9. Thoughts that you would be better off or of hurting yourself in some way: not at all Total score: 0 Depression Screening Interpretation: Negative Depression Screening Done: Yes 14064 - PHQ-9 Billing: Yes Source: Developed by Drs. Silvano Smith, Mallory Miramontes, Robert Walker and colleagues, with an educational evelyn from [employer]. Thrive Questionnaire Date Thrive assessed: 12/20/24 I am a: Patient What is your living situation today?: I have a steady place to live THRIVE Score: 0 HARSHA-7 AMB Questionnaire HARSHA-7 Date HARSHA - 7 assessed: 12/20/24 Source: Developed by Drs. Silvano Smith, Mallory Miramontes, Robert Walker and colleagues, with an educational evelyn from [employer]. Review of Systems Const Denies body aches, Denies chills, Denies excessive sweating, Denies fatigue, Denies fever(s) and Denies headache(s) Eyes Denies blurry vision ENT Denies dysphagia, Denies vertigo, Denies dizziness, Denies headache(s), Denies hearing loss and Denies tinnitus Card Denies chest pain, Denies chest pain with activity, Denies syncope, Denies irregular heart rhythm and Denies dyspnea Resp Denies chest congestion, Denies cough, Denies hemoptysis, Denies dyspnea and Denies wheezing GI Denies abdominal pain, Denies melena, Denies hematochezia, Denies coffee ground emesis, Denies dysphagia, Denies diarrhea, Denies nausea and Denies vomiting Denies difficulty urinating, Denies dysuria, Denies urinary frequency, Denies urinary hesitancy and Denies urinary urgency Musc Denies arthralgias, Denies limited range of motion, Denies muscle cramps and Denies muscle weakness Skin/Breast Denies rash and Denies skin ulcer Neuro Denies Abnormal speech present, Denies confusion, Denies vertigo, Denies dizziness, Denies syncope, Denies headache(s), Denies memory loss and Denies seizure-like activity Psych Denies anxiety, Denies confusion, Denies depression, Denies memory loss, Denies panic attacks and Denies paranoia Endo Denies excessive sweating, Denies fatigue, Denies flushing, Denies polydipsia and Denies polyuria Aller/Immun Denies wheezing Physical exam (Primary Care) Vital Signs: Last Vital Signs Pulse 70 12/20/24 15:32 BP 118/70 12/20/24 15:32 Pulse Ox 97 12/20/24 15:32 Oxygen Delivery Method Room Air 12/20/24 15:32 BMI result Body Mass Index 39.4 BMI Assessment/Plan discussion: High BMI High, discussed plan: lifestyle, weight reduction, dietary and physical activity Tobacco/Smoking Status: Tobacco use Status Tobacco use date assessed 12/20/24 12/20/24 15:37 Patient Tobacco Use Status Never used Tobacco 12/20/24 15:32 e-Cigarette/Vaping Use Never Used 12/20/24 15:32 PHQ-9: PHQ-9 Score PHQ-9: Total score 0 12/20/24 16:49 Depression Screening Interpretation: Negative Thrive Assessment: Date of Thrive Assessment Date Thrive assessed 12/20/24 12/20/24 15:37 Const General: cooperative, comfortable, no acute distress, alert and awake; No confusion Orientation/consciousness: oriented to person, oriented to place, patient oriented x3 and No confusion HENMT Head: Yes normocephalic Ears: external ears normal and TM's normal bilaterally Face and sinus: No sinus tenderness Mouth: Normal oral and palatal mucosa present and tongue normal Teeth and gingiva: dentition normal and gingiva normal Throat: Yes posterior oropharynx normal, Yes tonsils normal and Yes uvula midline Eyes Conjunctivae: conjunctivae normal Sclerae: sclerae normal Pupils: Equal, round and reactive pupils present EOM: EOMs intact bilaterally Direct Ophthalmoscopy: No no photophobia Neck Neck: Yes no lymphadenopathy, No tender and Yes no JVD Thyroid: Thyroid normal Carotids: no bruits Chest Chest palpation & inspection: no tenderness Resp Effort & Inspection: normal respiratory effort, no audible wheezes, not labored and no stridor Auscultation: no crackles, no rales, no rhonchi and no wheezes Cardio Jugular venous distension: no JVD Rate: regular rate, not bradycardic and not tachycardic Rhythm: regular rhythm Bruits: no carotid bruits Peripheral pulses: Peripheral pulses 2+ throughout GI Inspection: Yes normal to inspection, No abdominal wall ecchymosis and No visible herniation Palpation (GI): Soft to palpation, nontender, no guarding, not rigid and No hepatosplenomegaly present Auscultation: normoactive bowel sounds General: Yes no CVA tenderness Back/Spine/Pelvis Back: no CVA tenderness and No back tenderness Cervical Spine: cervical ROM normal Thoracic/Lumbar Spine: thoracic and lumbar spine normal to inspection, straight leg raise negative bilaterally, No thoraco-lumbar ROM limited and No lumbar spinal tenderness Skin Lesions: no lesions Rashes: no rashes Wounds: no wounds Neuro General: oriented to person, oriented to place, patient oriented x3, CN's II-XI intact bilaterally and No confusion Cranial nerves: Yes Equal, round and reactive pupils present and Yes Normal accommodation reflex present Cognition (Neuro): normal cognition Speech: No Abnormal speech present Gait exam (Neuro): Normal gait present Motor exam (neuro): 5/5 motor strength present throughout Extrem Right upper extremity: full ROM; no cyanosis Left upper extremity: full ROM; no cyanosis Right lower extremity: no edema Left lower extremity: no edema Psych Appearance: grossly normal Mental Status: mental status grossly normal Affect: normal affect Attitude: cooperative Thought process: Normal thought process present Results AMB Hemoglobin A1c AMB Hemoglobin A1c 11.3 % Last Edit by Lidia Yeager MA on 12/20/24 16:41 Results Reviewed Results Reviewed: Laboratory Last Values Hgb A1c (Clinic) 11.3 % (4.0-6.0) H 12/20/24 15:31 Coding Level of Care Code Est Pt Prev Care 40-64y(95165) Diagnoses Annual physical exam Z00.00 Type 2 diabetes mellitus with hyperglycemia, with long-term current use of insulin E11.65; Z79.4 Diabetes mellitus intermission coordinator insulin use: with residential use Essential hypertension I10 Hypertension type: essential hypertension Hypertriglyceridemia E78.1 Class 1 obesity E66.811 Chronic diastolic congestive heart failure I50.32 Heart failure type: diastolic Heart failure chronicity: chronic Additional Codes PHQ-9 - 88981 - PHQ-9 Billing: Yes ([id number]) Assessment & Plan Assessment & Plan (1) Annual physical exam: Code(s): Z00.00 - Encounter for general adult medical examination without abnormal findings Category: Medical Plan: As per HPI (2) Type 2 diabetes mellitus with hyperglycemia: Code(s): E11.65 - Type 2 diabetes mellitus with hyperglycemia Category: Medical Qualifiers: Diabetes mellitus residential insulin use: with residential use Qualified Code(s): E11.65 - Type 2 diabetes mellitus with hyperglycemia; 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 Will increase his Lantus and add on Jardiance for better glycemic control. Will consider a GLP 1 if A1c remains above 9 at next visit. He will work on lifestyle and dietary modifications. Goal A1c is to be below 7.0 (3) HTN (hypertension): Code(s): I10 - Essential (primary) hypertension Category: Medical Qualifiers: Hypertension type: essential hypertension Qualified Code(s): I10 - Essential (primary) hypertension Plan: Patient's blood pressure acceptable today in office. Will continue his current dose of antihypertensive medication. Goal blood pressures to be below 140/90 (4) Hypertriglyceridemia: Code(s): E78.1 - Pure hyperglyceridemia Category: Medical Plan: Most recent lipid panel showing good control of his total cholesterol and LDL. LDL to remain below 100 (5) Class 1 obesity: Code(s): E66.811 - Obesity, class 1 Category: Medical Plan: Patient does understand his BMI is over 35 and will we working on being more physically active and adapting to better eating habits to reduce his weight (6) CHF (congestive heart failure): Code(s): I50.9 - Heart failure, unspecified Category: Medical Qualifiers: Heart failure type: diastolic Heart failure chronicity: chronic Qualified Code(s): I50.32 - Chronic diastolic (congestive) heart failure Plan: Patient appears well compensated on current dose of furosemide 40 mg. Orders: Orders Complete Blood Count no Diff 12/20/24.65 - Type 2 diabetes mellitus with hyperglycemia, Z79.4 - [facility] (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 AMB Hemoglobin A1c 12/20/24 E11.65 - Type 2 diabetes mellitus with hyperglycemia, Z79.4 - [facility] (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 Comprehensive [place]. 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 Changed From insulin glargine (Lantus Solostar U-100 Insulin) Increased dose to 30 units 30 units (0.3 mL) subcut DAILY 15 mL 0RF .65 - Type 2 diabetes mellitus with hyperglycemia, Z79.4 - 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
[2024-12-20 15:32] VITALS: BP 118/70; PULSE 70; O2SAT 97; BMI 39.4
== END 2024-12-20 17:37 | disposition home or self-care (01) ==
LOC: HO.HMCH 15:28
PROVIDERS: PCP Physician Assistant; Visit Provider Physician Assistant
DX: E11.65 Type 2 diabetes mellitus with hyperglycemia (principal); Z79.4 Long term (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

== ENCOUNTER 2025-03-26 06:00 | Outpatient (REF) | payer BC, SELFPAY ==
[2025-03-26 07:24] LABS: Hematocrit 45.7 % (42.0-52.0); Hemoglobin 15.4 g/dl (14.0-18.0); Mean Corpuscular HGB Conc 33.7 g/dl (31.0-36.0); Mean Corpuscular Hemoglobin 29.3 pg (27.0-33.0); Mean Corpuscular Volume 87.0 fL (80.0-98.0); NRBC Abs Auto 0.000 X10*3/uL (0.0-0.012); NRBC Pct Auto 0.0 /100WBC (0.0-0.2); Platelet Count 213 X10*3/uL (160-400); Red Blood Count 5.25 X10*6/uL (4.60-5.80); White Blood Count 7.4 X10*3/uL (4.8-10.8)
[2025-03-26 08:02] LABS: Alanine Aminotransferase 16 U/L (0-40); Albumin Level 3.8 g/dL (3.5-5.0); Alkaline Phosphatase 63 U/L (39-117); Anion Gap 8 (12-20); Aspartate Amino Transferase 20 U/L (5-37); Blood Urea Nitrogen 16 mg/dL (9-16); Calcium 9.2 mg/dL (8.4-10.2); Carbon Dioxide 31 mmol/L (22-29); Chloride 100 mmol/L (96-108); Estimated Glomerular Filt Rate > 60; Potassium 4.4 mmol/L (3.3-5.1); Sodium 135 mmol/L (135-145); Total Protein 6.8 g/dL (6.5-8.0)
== END 2025-03-26 06:01 | disposition home or self-care (01) ==
LOC: HO.LAB 06:00
PROVIDERS: PCP Physician Assistant; Visit Provider Physician Assistant
DX: E11.65 Type 2 diabetes mellitus with hyperglycemia (principal); Z79.4 Long term (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
CPT/HCPCS: 36415; 80053; 83036; 85027

== ENCOUNTER 2025-03-26 15:28 | Outpatient (AMB) | payer BC, SELFPAY ==
--- NOTE | 2025-03-26 15:40 | A.OFFPC_ITS ---
Vital Signs 03/26/25 15:42 Height 5 ft 8 in Weight 263 lb BMI 40.0 BP 120/72 Blood Pressure Location Lt brachial Position Sitting Pulse 63 Pulse Source Pulse Oximeter Temp 97.1 F Temp Source Temporal Artery Scan Pulse Oximetry (%) 97 Oxygen Delivery Method Room Air Intake Visit Reasons: 3 mo f/u DMII Intake Note: Patient is here to follow up on DM. Mdm Sr Required: No Burling And Joining Supervisor: Not Required per policy Accompanied by: Self / Same As Patient Allergies oxycodone Allergy (Intermediate, Verified 03/26/25 15:52) Palpitations metformin Adverse Reaction (Intermediate, Verified 03/26/25 15:52) Chills Medication List - Last Reconciled 03/26/25 by Saad Jimenez PA-C albuterol sulfate 90 mcg/actuation 2 puffs inhalation Q6H 30 days albuterol sulfate 2.5 mg (3 mL) inhalation .QH8 PRN 30 days amlodipine 5 mg PO DAILY aspirin 81 mg PO DAILY blood sugar diagnostic (FreeStyle Lite Strips) As directed blood-glucose meter (FreeStyle [place] kit) As directed blood-glucose sensor (FreeStyle Froylan 3 Sensor device) As directed blood-glucose,ep technologist,cont (FreeStyle Froylan 3 [place]) As directed empagliflozin (Jardiance) 25 mg PO DAILY 90 days fluticasone propion-salmeterol 250-50 mcg/dose (Advair Diskus) 1 inh inhalation BID 30 days furosemide 40 mg PO DAILY ibuprofen 800 mg PO Q8H PRN insulin glargine (Lantus Solostar U-100 Insulin) 38 units (0.38 mL) subcut DAILY 30 days lancets (FreeStyle Lancets) As directed lisinopril 30 mg PO DAILY pen needle, diabetic As directed Tobacco use date assessed: 03/26/25 Dental Screening Dental Screen Date: 12/20/24 HPI 3 mo f/u DMII HPI Details Patient is a 60 year male here today for a follow-up visit . Patient has a past medical history si gnificant for hypertension, type 2 diabetes, obesity, mild? intermittent asthma. CHF: Well compensated with 40 mg Lasix daily. We have started Jardiance for cardiovascular risk reduction. .. ?hypertension;? blood pressure acceptable today in office.. Has not been particularly monitoring his blood pressure home.. Patient continues on lisinopril 30 mg and amlodipine he denies any chest pain, shortness of breath, headaches or vision issues.? He reports taking? lisinopril daily. ? .. Class 3 Obesity:? Unfortunately gained some weight since last office visit..? He does report having a family history of obesity.? He does report having a fairly decent diet. .. Type? 2 diabetes: Patient's type 2 diabetes suboptimally controlled though A1c today at 8.7 from 11.. He is more consistent with the use of his insulin He does admit to some dietary indiscretion would like to work extensively on dietary modification. PLAN: Will increase his Lantus to 42 units daily, will continue on Jardiance for cardiovascular risk reduction .. Asthma: Has been fairly well controlled with p.r.n. use of his albuterol inhaler. Does not regularly uses Flovent. He has not had to use any prednisone lately. [facility] Medical History Type 2 diabetes mellitus with hyperglycemia HTN (hypertension) Class 3 obesity INGRIS (obstructive sleep apnea) Colon cancer screening Mild intermittent asthma in adult without complication Surgical History History of cardiac cath History of knee surgery Family History Brother Myocardial infarction, Onset Age: 40 Father Social History Household Members: Spouse Housing: House Do you presently have visiting nurse or other home services: No Alcohol intake: current Alcohol intake frequency: holidays/special occasions only Alcohol type: beer Patient Tobacco Use Status: Never used Tobacco e-Cigarette/Vaping Use: Never Used Second Hand Smoke Exposure: No service: No Current occupational 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 Cognitive needs: No Hearing needs: No Vision needs: Yes (reading glasses) Questionnaire Thrive Questionnaire Date Thrive assessed: 12/20/24 I am a: Patient What is your living situation today?: I have a steady place to live Within the past 12 months, did the food you bought not last and you didn't have the money to get more?: Never true Within the past 12 months, did you worry whether your food would run out before you got money to buy more?: Never true Do you have trouble paying for medicines?: No Do you have trouble getting transportation to medical appointments?: No Do you have trouble paying your heating and electricity bill?: Yes Do you have trouble taking care of your child, family member or friend?: No Do you have trouble with day-to-day activities such as bathing, preparing meals, shopping, managing finances, etc.?: No Are you currently unemployed and looking for a job?: No Are you interested in more education?: No Please select the resources that you would like help with: Utilities Currently or been in a relationship where the following occur: I choose not to answer THRIVE Score: 1 AUDIT C Alcohol Use Questionnaire (AUDIT-C) 2. How many drinks containing alcohol do you have on a typical day when you are drinking?: 1 or 2 3. How often do you have six or more drinks on one occasion?: Never Total Score: 0 HARSHA-7 AMB Questionnaire HARSHA-7 Date HARSHA - 7 assessed: 12/20/24 Source: Developed by Drs. Silvano Smith, Mallory Miramontes, Robert Walker and colleagues, with an educational evelyn from [employer]. Review of Systems Const Denies headache(s) Eyes Denies loss of vision ENT Denies vertigo, Denies dizziness, Denies headache(s) and Denies sore throat Card Denies chest pain, Denies leg edema and Denies lightheadedness Resp Denies cough, Denies hemoptysis and Denies wheezing GI Denies abdominal pain, Denies melena, Denies constipation, Denies diarrhea and Denies vomiting Denies dysuria, Denies urinary frequency and Denies urinary urgency Musc Denies arthralgias, Denies joint swelling, Denies numbness and Denies tingling Neuro Denies Abnormal speech present, Denies behavioral changes, Denies vertigo, Denies dizziness, Denies headache(s), Denies loss of vision, Denies memory loss, Denies numbness and Denies tingling Psych Denies anxiety, Denies behavioral changes, Denies depression, Denies memory loss and Denies panic attacks Steven/Lymph Denies easy bleeding and Denies easy bruising Aller/Immun Denies wheezing Physical exam (Primary Care) Vital Signs: Last Vital Signs Temp 97.1 F 03/26/25 15:42 Pulse 63 03/26/25 15:42 BP 120/72 03/26/25 15:42 Pulse Ox 97 03/26/25 15:42 Oxygen Delivery Method Room Air 03/26/25 15:42 BMI result Body Mass Index 40.0 BMI Assessment/Plan discussion: High BMI High, discussed plan: lifestyle, weight reduction, dietary and physical activity Tobacco/Smoking Status: Tobacco use Status Tobacco use date assessed 03/26/25 03/26/25 15:42 Patient Tobacco Use Status Never used Tobacco 03/26/25 15:42 e-Cigarette/Vaping Use Never Used 03/26/25 15:42 Thrive Assessment: Date of Thrive Assessment Date Thrive assessed 12/20/24 03/26/25 15:42 Currently or been in a relationship where the following occur: I choose not to answer Const Other: OBESE General: healthy appearing, no acute distress, alert and awake Nutritional Appearance: well nourished Orientation/consciousness: oriented to person, oriented to place and oriented to time HENMT Ears: TM's normal bilaterally General nose exam: Normal nasal mucous membranes and turbinates present Eyes Conjunctivae: conjunctivae normal Sclerae: sclerae normal Pupils: Equal, round and reactive pupils present Neck Neck: Yes no lymphadenopathy and Yes no JVD Thyroid: Thyroid normal Carotids: no bruits Resp Effort & Inspection: normal respiratory effort and not tachypneic Auscultation: no crackles, no rales, no rhonchi and no wheezes Cardio Rate: regular rate Rhythm: regular rhythm Heart sounds: no murmurs and normal S1 and S2 GI Palpation (GI): Soft to palpation, nontender, no hepatomegaly and no splenomegaly Auscultation: normal bowel sounds Skin General skin exam: no rashes or lesions noted and dry skin Neuro General: oriented to person, oriented to place and oriented to time Cranial nerves: Yes Equal, round and reactive pupils present Speech: No Abnormal speech present Gait exam (Neuro): Normal gait present Motor exam (neuro): no tremor noted Extrem Right upper extremity: full ROM Left upper extremity: full ROM Right lower extremity: full ROM; no edema Left lower extremity: full ROM; no edema Psych Mental Status: mental status grossly normal Speech and movement: Normal speech and movement present Affect: normal affect Attitude: cooperative Thought process: Normal thought process present Results AMB Hemoglobin A1c AMB Hemoglobin A1c 8.7 % Last Edit by MARU Salinas on 03/26/25 16:00 Coding Level of Care Code Est Pt Level 4 (80267) Diagnoses Type 2 diabetes mellitus with hyperglycemia, with long-term current use of insulin E11.65; Z79.4 Diabetes mellitus jail insulin use: with terminal system operator use Essential hypertension I10 Hypertension type: essential hypertension Hypertriglyceridemia E78.1 Class 1 obesity E66.811 Chronic diastolic congestive heart failure I50.32 Heart failure type: diastolic Heart failure chronicity: chronic Assessment & Plan Assessment & Plan (1) Type 2 diabetes mellitus with hyperglycemia: Code(s): E11.65 - Type 2 diabetes mellitus with hyperglycemia Category: Medical Qualifiers: Diabetes mellitus terminal system operator insulin use: with terminal system operator use Qualified Code(s): E11.65 - Type 2 diabetes mellitus with hyperglycemia; Z79.4 - joint terminal attack controller (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 Plan: Patient's type 2 diabetes suboptimally controlled with current management. A1c today improved at 8.7 Will increase his Lantus to 42 units and continue on Jardiance for better glycemic control. He will work on lifestyle and dietary modifications. Goal A1c is to be below 7.0 (2) HTN (hypertension): Code(s): I10 - Essential (primary) hypertension Category: Medical Qualifiers: Hypertension type: essential hypertension Qualified Code(s): I10 - Essential (primary) hypertension Plan: Patient's blood pressure acceptable today in office. Will continue his current dose of antihypertensive medication. Goal blood pressures to be below 140/90 (3) Hypertriglyceridemia: Code(s): E78.1 - Pure hyperglyceridemia Category: Medical Plan: Most recent lipid panel showing good control of his total cholesterol and LDL. LDL to remain below 100 (4) Class 1 obesity: Code(s): E66.811 - Obesity, class 1 Category: Medical Plan: Patient does understand his BMI is over 35 and will we working on being more physically active and adapting to better eating habits to reduce his weight (5) CHF (congestive heart failure): Code(s): I50.9 - Heart failure, unspecified Category: Medical Qualifiers: Heart failure type: diastolic Heart failure chronicity: chronic Qualified Code(s): I50.32 - Chronic diastolic (congestive) heart failure Plan: Patient appears well compensated on current dose of furosemide 40 mg. We have started Jardiance 25 mg for cardiovascular risk reduction Orders: Orders AMB Hemoglobin A1c Today E11.65 - Type 2 diabetes mellitus with hyperglycemia, Z79.4 - joint terminal attack controller (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 Medications: Changed From empagliflozin (Jardiance) 25 mg PO DAILY 30 days 30 tabs 3RF E11.65 - Type 2 diabetes mellitus with hyperglycemia, Z79.4 - joint terminal attack controller (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 To empagliflozin (Jardiance) 25 mg PO DAILY 90 tabs 1RF 90 days E11.65 - Type 2 diabetes mellitus with hyperglycemia, Z79.4 - joint terminal attack controller (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 From insulin glargine (Lantus Solostar U-100 Insulin) Increased dose to 38 units 38 units (0.38 mL) subcut DAILY 30 days 15 mL 1RF E11.65 - Type 2 diabetes mellitus with hyperglycemia, Z79.4 - skilled nursing (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 To insulin glargine (Lantus Solostar U-100 Insulin) Increased dose to 42 units 42 units (0.42 mL) subcut DAILY 12.6 mL 1RF 30 days E11.65 - Type 2 diabetes mellitus with hyperglycemia, Z79.4 - joint terminal attack controller (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 Refilled pen needle, diabetic As directed 50 ea 4RF E11.65 - Type 2 diabetes mellitus with hyperglycemia, Z79.4 - joint terminal attack controller (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 Patient Instructions: Goal: A1c to be below 7.0, blood pressure to remain below 140/90, LDL to be below 100 Barriers: Adherence to physical activity and healthy eating habits
[2025-03-26 15:42] VITALS: BP 120/72; PULSE 63; TEMP 36.2; O2SAT 97; BMI 40.0
== END 2025-03-26 16:04 | disposition home or self-care (01) ==
LOC: HO.HMCH 15:29
PROVIDERS: PCP Physician Assistant; Visit Provider Physician Assistant
DX: E11.65 Type 2 diabetes mellitus with hyperglycemia (principal); Z79.4 Long term (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; I13.0 Hypertensive heart and chronic kidney disease with heart failure and stage 1 through stage 4 chronic kidney disease, or unspecified chronic kidney disease; I50.32 Chronic diastolic (congestive) heart failure; E66.811 Obesity, class 1; E78.1 Pure hyperglyceridemia